=== PATIENT | female | born 1960 | race Caucasian/White ===

== ENCOUNTER → 2016-07-26 | Outpatient (CLI) | payer OTHER ==
--- NOTE | 2016-07-27 09:01 | BD ---
EXAMINATION TYPE: MG DEXA axial skeleton. DATE OF EXAM: 07/26/2016 9:16 AM CLINICAL HISTORY: Height: 64 inches Weight: 261 FRAX RISK QUESTIONS: Alcohol (3 or more units per day): no Family History (Parent hip fracture): no Glucocorticoids (More than 3mos): no (Ex: prednisone, prednisolone, methylprednisolone, dexamethasone, and hydrocortisone). History of Fracture in Adulthood: no Secondary Osteoporosis: 1. Type 1 Diabetes: no 2. Hyperthyroidism: no 3. Menopause before 45: no 4. Malnutrition: no 5. Chronic liver disease: no Rheumatoid Arthritis: no Current Tobacco Use: no RISK FACTORS HISTORY OF: Family History of Osteoporosis: no Drink Alcohol: rarely Active: yes Diet low in dairy products/other sources of calcium: at least one serving a day Postmenopausal woman: yes Take estrogen and/or progesterone medications: not now How long: hormonal contraceptives about 10 years Lost more than 2 inches in height since high school: no Frequent falls: no Poor Health: no Hyperparathyroidism: no Adrenal Insufficiency: no MEDICATIONS: Prednisone or other steroids: no Thyroid Medications: yes Which medication: Levothyroxine How Long: since 2006 Osteoporosis Medications: no Additional Medications: heart meds, cholesteral, beta carmela , blood thinner Additional History: heart stents EXAM MEASUREMENTS: Bone mineral densitometry was performed using the [email or web address] System. Bone mineral density as measured about the Lumbar spine is: ----- L1-L4(G/cm2): 1.349 T Score Values are as follows: ----- L2: 0.9 ----- L3: 2.0 ----- L4: 2.5 ----- L1-L4: 1.4 Bone mineral density has: Increased 1.2% since study of: 05/29/2012 Bone mineral density about the R hip (g/cm2): 1.086 Bone mineral density about the L hip (g/cm2): 1.138 T Score values are as follows: -----R Neck: 0.3 -----L Neck: 0.7 -----R Total: 1.7 -----L Total: 1.9 Bone mineral density has: Decreased -2.8% since study of: 05/29/2012 IMPRESSION: Normal (Values between +1 and -1 indicate normal bone mass). Consider repeating this study in 5 year s or sooner if there is some new clinical indication. Lumbar Spine , Bilateral Necks, & Bilateral Totals NOTE: T-SCORE=SD OF THE YOUNG ADULT MEAN.
--- NOTE | 2016-07-29 13:27 | MM ---
Reason for exam: screening (asymptomatic). Last mammogram was performed 1 year and 1 month ago. History: Patient is postmenopausal. Took hormonal contraceptives for 10 years beginning at age 15. Physical Findings: A clinical breast exam by your physician is recommended on an annual basis and results should be correlated with mammographic findings. MG Screening Mammo w CAD Bilateral CC and MLO view(s) were taken. Prior study comparison: July 07, 2015, bilateral MG screening mammo w CAD. June 11, 2014, bilateral MG screening mammo w CAD. May 30, 2013, bilateral digital screening mammo w/CAD. There are scattered fibroglandular densities. No significant changes when compared with prior studies. ASSESSMENT: Negative, BI-RAD 1 RECOMMENDATION: Routine screening mammogram of both breasts in 1 year.
== END | disposition home or self-care (01) ==
LOC: RADMAMWWP 08:22
PROVIDERS: ATTEND Obstetrics & Gynecology
DX: Z12.31 Encounter for screening mammogram for malignant neoplasm of breast (principal); Z78.0 Asymptomatic menopausal state; Z79.899 Other long term (current) drug therapy
CPT/HCPCS: 77080; G0202

== ENCOUNTER 2016-08-31 11:35 | Inpatient (IN) | payer OTHER ==
[2016-08-31] MEDS: DEXTROSE 5%-0.45% NACL 1,000 ML IV SCH (13:36)
[2016-08-31] MEDS: ACETAMINOPHEN TAB 325 MG TAB PO PRN ×3 (15:21→23:56)
--- NOTE | 2016-08-31 19:27 | HP ---
DATE OF ADMISSION: 08/31/2016 CHIEF COMPLAINT: Fever. HISTORY OF PRESENT ILLNESS: This 56-year-old female was admitted to the hospital because of fever. The patient called me this morning at about 7:00 that she was having a fever during the night. I had seen on Monday with upper respiratory symptoms and did advise her to monitor temperature and status. The patient had malaise. The patient was advised rest. She had been on Zithromax for persistent cough last week. She had initial temperature when she started on Zithromax. No fever for the past week except yesterday. The patient denies any chest pain. Does feel mild shortness of breath. Has some cough, not much sputum production. Actually her condition feels better. Patient in view of this, as an outpatient from the office had a chest x-ray done which reveals a right upper lobe pneumonia. White count is normal; however, the patient do to the symptoms and feeling poorly is admitted to the hospital. The patient does work in the hospital. Past medical history is primarily significant for coronary artery disease with cardiac stenting done in May. The patient also had a subendocardial myocardial. The patient has history of hyperlipidemia and mild obesity. She has history of hypothyroidism, on medical therapy. Otherwise, no history of any major illnesses. She does have history of hyperlipidemia, on medical therapy. The patient recently had about month ago a right inguinal infected sebaceous cyst which has healed. PAST SURGICAL HISTORY: None major. PERSONAL HISTORY: Nonsmoker at present, has been an ex-smoker. Quit smoking back in May. Alcohol none. MEDICATIONS INCLUDE: 1. Aspirin 1 daily. 2. Effient 10 mg daily. 3. Zyloprim 10 mg daily. 4. Levothyroxine 50 mcg daily. 5. Vitamin D 50,000 units q.2 weeks. 6. Xanax 0.5 mg p.r.n. t.i.d. 7. Atorvastatin 40 mg daily. 8. Atenolol 25 mg daily. 9. Potassium 10 mEq daily. 10. Lasix 40 mg daily. SOCIAL HISTORY: Patient is , lives with her spouse. FAMILY MEDICAL HISTORY: Noncontributory for this gentleman. History of coronary artery disease in the family. REVIEW OF SYSTEMS: NEUROLOGIC: Mild headache, no dizziness. PSYCH: No anxiety. CARDIAC: No chest pain, angina, palpitations. RESPIRATORY: Mild shortness of breath, cough. No hemoptysis. No chest pain. GI: No nausea, vomiting, abdominal pain, diarrhea, constipation. The patient had diarrhea 3 days ago. : No symptoms of dysuria, hematuria. EXTREMITIES: No pain. Does have generalized malaise. CONSTITUTIONAL: Fever, chills and malaise. SKIN: No rashes. PHYSICAL EXAMINATION: Pleasant female in no distress. VITAL SIGNS: Blood pressure 110/70. Temperature was up to 103.2, it is down to 100.3 axillary. Pulse 73, respirations are 18, unlabored. HEENT: Normocephalic. NECK: Supple. No JVD. Chest examination is clear to auscultation. CARDIAC: Normal S1, S2 with no gallops or murmurs. ABDOMEN: Soft, no palpable masses. Bowel sounds normal. No organomegaly. No bruits. EXTREMITIES: No edema. No tenderness. NEUROLOGICAL: Awake, alert, oriented x3 with well coordinated movements. LABORATORY ASSESSMENT: Chest x-ray right upper lobe pneumonia. Patient's CBC reveals white count 5.5, platelet count 111,000. Chemistry is normal. ASSESSMENT: 1. Right upper lobe pneumonia. 2. Coronary artery disease. 3. Recent upper respiratory tract infection. PLAN: Patient admitted to the hospital. She had already taken Levaquin 750 mg p.o. prior to coming into the hospital. She had been ordered to have chest x-ray and the start of Levaquin. The patient in view of this will be continued on Levaquin IV tomorrow. The patient meanwhile when her blood cultures are done, no anticoagulation for deep venous thrombosis prophylaxis as the patient has platelet counts 111,000. The patient is ambulating to the bathroom and back. Will hydrate the patient. Oxygen p.r.n. Prognosis discussed with the patient.
[2016-08-31] MEDS: ALPRAZolam 0.5 MG TAB PO PRN (23:56)
[2016-09-01] MEDS: DEXTROSE 5%-0.45% NACL 1,000 ML IV SCH ×2 (02:54→17:16)
[2016-09-01] MEDS: ACETAMINOPHEN TAB 325 MG TAB PO PRN (03:52)
[2016-09-01] MEDS: LEVOTHYROXINE 50 MCG TAB PO SCH (06:18)
[2016-09-01] MEDS: LEVOFLOXACIN 750MG-D5W PMX 750 MG in DEXTROSE/WATER 1 150ML.BAG IVPB SCH (07:57)
[2016-09-01] MEDS: POTASSIUM CHLORIDE ER 10 MEQ TAB.ER.PRT PO SCH (07:57)
[2016-09-01] MEDS: PRASUGREL 10 MG TAB PO SCH (07:57)
[2016-09-01] MEDS: FUROSEMIDE 40 MG TAB PO SCH (07:57)
[2016-09-01] MEDS: ATENOLOL 12.5 MG TAB PO SCH ×2 (08:02→21:09)
--- NOTE | 2016-09-01 08:13 | XR ---
EXAMINATION TYPE: XR chest 2V DATE OF EXAM: 09/01/2016 COMPARISON: Prior chest x-ray 08/31/2016 HISTORY: Pneumonia TECHNIQUE: Frontal and lateral views of the chest are obtained. FINDINGS: Air space disease present in the right upper lobe is somewhat more conspicuous on the fron destini exam. No other interval change. IMPRESSION: Findings compatible with right upper lobe pneumonia, follow-up to resolution.
[2016-09-01] MEDS: IBUPROFEN 400 MG TAB PO PRN ×4 (08:37→21:06)
[2016-09-01 08:50] LABS: Anisocytosis Slight; Basophils % (A) 0 %; CH 27.8; CHCM 32.8; Eosinophils % (A) 0 %; HCT 36.8 % (34.0-46.0); HDW 3.36; HGB 11.9 gm/dL (11.4-16.0); Luc % (Auto) 2; Lymphocytes # (A) 0.7 k/uL (1.0-4.8); Lymphocytes % (A) 15 %; MCH 27.5 pg (25.0-35.0); MCHC 32.3 g/dL (31.0-37.0); MCV 85.2 fL (80.0-100.0); Mean Platelet Volume 7.8; Monocytes # (A) 0.2 k/uL (0-1.0); Monocytes % (A) 4 %; Neutrophils # (A) 3.8 k/uL (1.3-7.7); Neutrophils % (A) 79 %; RBC 4.32 m/uL (3.80-5.40); WBC 4.9 k/uL (3.8-10.6); WBC (Perox) 4.82
[2016-09-01] MEDS ORDERED: CITALOPRAM HYDROBROMIDE 10 MG TAB PO SCH (09:00)
[2016-09-01] MEDS ORDERED: ASPIRIN 81 MG CHEW PO SCH (09:00)
[2016-09-01] MEDS ORDERED: ATORVASTATIN 40 MG TAB PO SCH (09:00)
[2016-09-01] MEDS ORDERED: ATENOLOL 25 MG TAB PO SCH (09:00)
[2016-09-01] MEDS: ASPIRIN 325 MG TAB PO SCH (10:00)
[2016-09-01 10:32] LABS: Manual Review Performed
[2016-09-01 14:45] VITALS: BMI 42.5
[2016-09-01] MEDS ORDERED: IV VANCOMYCIN PER PHARMACY 1 EACH MISC MISCELLANE PRN (18:15)
[2016-09-01 18:52] LABS: Anion Gap 9 mmol/L; Blood Urea Nitrogen 14 mg/dL (7-17); Calcium 7.7 mg/dL (8.4-10.2); Carbon Dioxide 23 mmol/L (22-30); Chloride 100 mmol/L (98-107); Glucose 108 mg/dL (74-99); Non-African American GFR(MDRD) >60 (>60 ml/min/1.73 sqM); Potassium 3.5 mmol/L (3.5-5.1); Sodium 132 mmol/L (137-145)
[2016-09-01] MEDS ORDERED: VANCOMYCIN 2,000 MG in SODIUM CHLORIDE 0.9% 500 ML IVPB ONE (19:00)
[2016-09-01] MEDS: ATORVASTATIN 40 MG TAB PO SCH (21:09)
[2016-09-01] MEDS: ALPRAZolam 0.5 MG TAB PO PRN (21:09)
--- NOTE | 2016-09-01 23:29 | PN ---
CHIEF COMPLAINT: Re-evaluation. HISTORY OF PRESENT ILLNESS: This is a 56-year-old female who was admitted to the hospital yesterday because of chest pain. The patient is actually continuing to have a fever throughout the night and again ( ). The patient was seen this morning. She is re-evaluated again this evening. During the day she had no temperature; however, right now the patient's temperature is up to 103.7. The patient denies any chest pain and does have mild dyspnea when she gets up to the bathroom. She did have a shower. She has some cough. No hemoptysis. No sputum production. REVIEW OF SYSTEMS: NEURO: Mild headache. No dizziness. PSYCH: No anxiety or depression. CARDIAC: No chest pain, angina, palpitations. RESPIRATORY: Cough. No hemoptysis. GI: No nausea, vomiting. Appetite fair. GI: No abdominal pain, diarrhea. : No symptoms of dysuria, hematuria. EXTREMITIES: No pain. CONSTITUTIONAL: No fever or chills. PHYSICAL EXAMINATION: Pleasant female in no distress. VITAL SIGNS: Temperature at the time of evaluation this morning was 102.9 with a pulse of 86, respiration 16, blood pressure 134/74. During the day the patient's temperature was down. This evening temperature was 103.7. The patient has been given Motrin. HEENT: Normocephalic. NECK: Supple. No JVD. CHEST: Clear to auscultation with clear lung hill. CARDIAC: Distant heart sounds. S1, S2 with no gallops or murmurs. ABDOMEN: Soft. Bowel sounds present. EXTREMITIES: No edema. No tenderness. NEUROLOGICAL: Awake, alert, oriented with well-coordinated movements. Laboratory assessment revealed a CBC with a white count that is 4.9. Platelet count is down to 85,000. Patient's chest x-ray reveals mild progression of the right upper lobe pneumonia. ASSESSMENT: 1. Right upper lobe pneumonia. 2. Continued fever. 3. History of coronary artery disease. 4. Thrombocytopenia. PLAN: Continue present medical regimen. Will start the patient on vancomycin and ask ID to see the patient. Patient's prognosis remains guarded. Condition discussed with the patient. Patient will be continued on antipyretics.
[2016-09-02] MEDS: IBUPROFEN 400 MG TAB PO PRN ×5 (00:17→22:34)
[2016-09-02] MEDS: ACETAMINOPHEN TAB 325 MG TAB PO PRN ×2 (01:24→18:17)
[2016-09-02] MEDS ORDERED: SODIUM CHLORIDE 0.9% 500 ML IV ONE (01:51)
[2016-09-02 02:12] LABS: Anisocytosis Slight; CH 27.7; CHCM 33.3; HDW 3.38; HGB 10.4 gm/dL (11.4-16.0); MCH 27.3 pg (25.0-35.0); MCHC 32.6 g/dL (31.0-37.0); MCV 83.8 fL (80.0-100.0); Mean Platelet Volume 7.5; RBC 3.82 m/uL (3.80-5.40); RDW 16.1 % (11.5-15.5)
[2016-09-02 02:24] LABS: Anion Gap 7 mmol/L; Blood Urea Nitrogen 12 mg/dL (7-17); Calcium 7.7 mg/dL (8.4-10.2); Carbon Dioxide 22 mmol/L (22-30); Chloride 102 mmol/L (98-107); Glucose 119 mg/dL (74-99); Non-African American GFR(MDRD) >60 (>60 ml/min/1.73 sqM); Potassium 3.6 mmol/L (3.5-5.1); Sodium 131 mmol/L (137-145)
[2016-09-02] MEDS ORDERED: SODIUM CHLORIDE 0.9% 1,000 ML IV SCH (02:30)
[2016-09-02] MEDS: PIPERACILLIN-TAZOBACTAM 3.375 GM in DEXTROSE/WATER 1 50ML.BAG IVPB SCH ×4 (02:30→21:52)
[2016-09-02] MEDS: LEVOTHYROXINE 50 MCG TAB PO SCH (06:25)
[2016-09-02] MEDS ORDERED: VANCOMYCIN 1,750 MG in SODIUM CHLORIDE 0.9% 250 ML IVPB SCH (08:00)
[2016-09-02] MEDS: ASPIRIN 325 MG TAB PO SCH (08:49)
[2016-09-02] MEDS: FUROSEMIDE 40 MG TAB PO SCH (08:50)
[2016-09-02] MEDS: POTASSIUM CHLORIDE ER 10 MEQ TAB.ER.PRT PO SCH (08:50)
[2016-09-02] MEDS: PRASUGREL 10 MG TAB PO SCH (08:50)
[2016-09-02] MEDS: ATENOLOL 12.5 MG TAB PO SCH ×2 (09:47→20:29)
[2016-09-02] MEDS: LEVOFLOXACIN 750MG-D5W PMX 750 MG in DEXTROSE/WATER 1 150ML.BAG IVPB SCH (09:47)
[2016-09-02] MEDS: PANTOPRAZOLE 40 MG TABLET PO SCH ×2 (09:49→16:30)
--- NOTE | 2016-09-02 10:23 | CDI ---
In responding to this query, please exercise your independent professional judgment. The [facility] Coding Staff and Clinical Documentation Specialists appreciate your assistance in clarifying documentation, maintaining compliance with coding guidelines, accurately documenting patients condition and capturing severity of illness. The fact that a question is asked does not imply that any particular answer is desired or expected. Communication forms are a method of clarifying documentation and are not made part of the Legal Health Record. Thank you in advance for your clarification. Last Revision, January 2015 James Faye [address] [place] [address] Documentation Clarification Form Date: 09/02/2016 10:14:00 AM From: Pili Romero RN, CCDS Admit Date: 08/31/2016 12:09:00 PM Patient Name: Jessica Flor Visit Number: [id number] Dr. Alexandr Flores Pneumonia was documented in your H&P and Progress notes and requires further specificity. History/Risk Factors: Recent URI with fever and malaise on Zithromax for persistent cough 1 week [employer]CTOR Clinical Indicators: WBC: 4.9/5 Left shift: .7 09/01 X-ray: Right upper lobe pneumonia 09/01 Attending Lung/Breathing assessment: "CTA with clear lung hill." Treatment: Antibiotics: Vanco 1750 mg IVPB Q 16 hrs, Zosyn 3.375 gm IVPB Q 8 hrs. Levaquin 750 MG IVPB Q 24 hrs O2: Room air Breathing Tx: none ordered In order to capture the severity of condition, please clarify if the condition signifies and you are treating for: Aspiration Pneumonia, identify if: Due to solids or liquids Bacterial Pneumonia, specify causal organism (if known) Gram Negative Pneumonia Due to Strep Due to Staph Due to E. Coli Other bacteria (specify) Viral Pneumonia, specify casual organism (if known) Unable to determine Link any associated conditions to the pneumonia: Influenza with secondary gram negative pneumonia Sepsis due to pneumonia Acute respiratory failure due to pneumonia Other, please specify Please document in your progress notes and discharge summary in order to capture severity of illness and risk of mortality. Include clinical findings that support your diagnosis. FYI: Press F11 to launch patient chart. Place X here if this finding has no clinical significance, is not applicable or if you are not able to provide any additional documentation. MTDD
[2016-09-02] MEDS: SODIUM CHLORIDE 0.9% 1,000 ML IV SCH ×2 (14:08→20:30)
--- NOTE | 2016-09-02 17:18 | CONS ---
DATE OF CONSULTATION: 09/02/2016 REASON FOR CONSULTATION: Fever and pneumonia. HISTORY OF PRESENT ILLNESS: The patient is a 56-year-old female who started getting sick around August 22. Patient had mostly URI symptoms at that time and was seen by her PCP and treated with Zithromax. A week later, on MondayAugust 29, she followed up with the physician; the patient said she had improved somewhat but not completely. At that time she was found to have more of a viral syndrome and was treated symptomatically. Patient presented back on August 31 with similar symptoms, and the patient was sent to the ER, where the patient was sent to the hospital. The patient had a chest x-ray showing evidence of pneumonia on the right side. Subsequently the patient has been admitted to the hospital and was treated with Levaquin and vancomycin therapy. The patient seemed to have persistent fever, and a fever of around 104 degrees Fahrenheit around 1:30 in the morning, at which time I was called in by the patient's nurse. We did order a lactic acid. Repeat blood culture and sputum culture were ordered in addition to ( ) Zosyn has been added. At the time of my evaluation this afternoon, the patient has been complaining of feeling weak and tired with a fever. She did have a cough, bringing up some sputum. The patient denied significant pleuritic chest pain. She did have some nausea and vomiting initially, but that seemed to resolve. Her diarrhea has resolved as well. No significant urinary symptoms. REVIEW OF SYSTEMS: CONSTITUTIONAL: Positive for weakness and a fever. EYES: No complaint. ENT: Symptoms as mentioned above. RESPIRATORY: As mentioned in HPI. CARDIOVASCULAR: No complaint. GENITOURINARY: No complaint. GASTROINTESTINAL: As per HPI. MUSCULOSKELETAL: No complaint. INTEGUMENTARY: No complaint. PSYCHOLOGIC: No complaint. ENDOCRINE: No complaint. NEUROLOGIC: No complaint. Possible medical history is significant for: 1. Coronary artery disease. 2. Hyperlipidemia. 3. Obesity. 4. Hypothyroidism. PAST SURGICAL HISTORY: PTCA and stent placement. SOCIAL HISTORY: Positive for smoking in the past; quit back in May of this year. Denies drinking. She is and lives with her and works as a nurse in [employer]. FAMILY HISTORY: Positive for coronary artery disease. ALLERGIES: 1. PREDNISONE. 2. LASIX. 3. CODEINE. 4. AVOCADO. Medications currently include: 1. Tylenol. 2. Xanax. 3. Aspirin. 4. Tenormin. 5. Lipitor. 6. Lasix. 7. Motrin. 8. Levaquin. 9. Synthroid. 10. Protonix. 11. Piperacillin tazobactam. 12. Vancomycin. On examination, blood pressure is 93/62 with a pulse of 78, temperature 99.8. T-max is 104. She is 96% on room air. General description is a middle-aged female lying in bed in no distress. No tachypnea or accessory muscles of respiration use. HEENT examination shows pallor. No scleral icterus. Oral mucous membranes dry and coated. NECK: Trachea central. No thyromegaly. LUNGS: Unlabored breathing with ( ) localized to the right side. HEART: S1, S2. Regular rate and rhythm. ABDOMEN: Soft. No tenderness. EXTREMITIES: No edema of the feet. SKIN EXAMINATION: No rash or mass palpable. NEUROLOGICAL: Patient awake, alert, oriented ( ). Mood and affect normal. LABS: Hemoglobin is 10.4, white count 5 with a BUN of 12, creatinine 0.90. Blood culture ( ) currently pending. Sputum culture requested; none collected yet. Urine for legionella antigen is pending. DIAGNOSTIC IMPRESSION AND PLAN: Patient with a fever in a patient who has predominantly respiratory symptoms preceded by upper respiratory infection symptoms prior to that. Does have some GI symptoms. Question of pneumonia, community-acquired. Legionella will be done. Etiology needs to be ruled out in view of the persistent fever and the GI symptoms. Patient does not give any symptoms that are suspicious for pneumonia of respiration etiology, in a patient with no other clinical focus of infection. PLAN: 1. Sputum culture has been ordered and urine for legionella antigen. 2. Zosyn has been added last night. Will continue in addition to Levaquin and vancomycin. 3. Obtain influenza swab. 4. We will follow up on the clinical condition and cultures to further adjust medication if needed. Thank you for this consultation. Will follow this patient along with you.
[2016-09-02] MEDS: ATORVASTATIN 40 MG TAB PO SCH (20:29)
--- NOTE | 2016-09-02 20:33 | PN ---
DATE OF SERVICE: 09/02/2016 CHIEF COMPLAINT: Re-evaluation. HISTORY OF PRESENT ILLNESS: This 56-year-old female was admitted to the hospital with a fever, chills and a diagnosis of right upper lobe pneumonia. Probable klebsiella; however, the patient had continuous fever during the day yesterday, and during the night it reached about 104. I did come down and see the patient about 2:30 in the night, as the patient's nurses were concerned about the patient. The patient's vital signs remained stable. The patient did have a high fever. 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 The patient is covered with Levaquin and vancomycin. ID consultation is pending. The patient was seen this morning; feeling some better. She looks better. This morning she does not have a fever. REVIEW OF SYSTEMS: NEURO: Denies any headaches, dizziness. PSYCH: No anxiety. CARDIAC: Denies chest pain, angina, palpitation. RESPIRATORY: Denies shortness of breath, cough, hemoptysis. GI: No nausea, vomiting, abdominal pain, diarrhea. : No symptoms of dysuria, hematuria. EXTREMITIES: Denies pain, edema. CONSTITUTIONAL: Fever and chills. At 5:45 patient had a temperature of 101.6. It is down to 99.8 at 7 a.m. PHYSICAL EXAMINATION: Pleasant female in no distress. Vital signs reveal temperature 99.8, pulse 78, respirations 18, blood pressure 93/62, pulse ox 96% on room air. HEENT: Normocephalic. NECK: No JVD. Chest is clear to auscultation. A few wheezes, right axillary area. CARDIAC: Normal S1, S2 with no gallops, murmurs. ABDOMEN: Soft. Bowel sounds present. Extremities reveal trace edema at the ankles. NEUROLOGICALLY: Awake, alert, oriented with well-coordinated movements. LABORATORY ASSESSMENT: CBC which showed a white count of 5000, hemoglobin 10.4, platelet count down to 73,000. Sodium was 131. Potassium 3.6. BUN and creatinine are normal. Calcium 7.7. ASSESSMENT: 1. Right upper lobe pneumonia. 2. Thrombocytopenia. 3. Mild anemia. 4. Coronary artery disease, stable. 5. Pyrexia. PLAN: Continue present medical regimen. Patient's condition discussed with the patient. Prognosis guarded. Patient received Motrin. Will add Protonix for GI prophylaxis. Patient is to be seen by ID. Patient's condition discussed with the patient. Prognosis guarded.
[2016-09-03] MEDS: IBUPROFEN 400 MG TAB PO PRN ×4 (03:28→15:53)
[2016-09-03] MEDS: VANCOMYCIN 1,750 MG in SODIUM CHLORIDE 0.9% 250 ML IVPB SCH ×2 (03:32→20:16)
[2016-09-03] MEDS: ALPRAZolam 0.5 MG TAB PO PRN (03:42)
[2016-09-03] MEDS: LEVOTHYROXINE 50 MCG TAB PO SCH (06:38)
[2016-09-03] MEDS: LEVOFLOXACIN 750MG-D5W PMX 750 MG in DEXTROSE/WATER 1 150ML.BAG IVPB SCH (07:38)
[2016-09-03 07:47] LABS: CH 27.8; CHCM 34.4; HCT 32.7 % (34.0-46.0); HDW 3.64; HGB 11.6 gm/dL (11.4-16.0); MCH 28.9 pg (25.0-35.0); MCHC 35.6 g/dL (31.0-37.0); MCV 81.1 fL (80.0-100.0); Mean Platelet Volume 8.7; Poikilocytosis Slight; RBC 4.03 m/uL (3.80-5.40); RDW 15.6 % (11.5-15.5); WBC 5.4 k/uL (3.8-10.6)
[2016-09-03] MEDS: POTASSIUM CHLORIDE ER 10 MEQ TAB.ER.PRT PO SCH (08:04)
[2016-09-03] MEDS: PRASUGREL 10 MG TAB PO SCH (08:04)
[2016-09-03] MEDS: FUROSEMIDE 40 MG TAB PO SCH (08:04)
[2016-09-03] MEDS: PANTOPRAZOLE 40 MG TABLET PO SCH ×2 (08:05→17:05)
[2016-09-03] MEDS: ASPIRIN 325 MG TAB PO SCH (08:05)
[2016-09-03] MEDS: ATENOLOL 12.5 MG TAB PO SCH ×2 (08:05→20:18)
[2016-09-03 08:09] LABS: Anion Gap 9 mmol/L; Blood Urea Nitrogen 12 mg/dL (7-17); Calcium 8.2 mg/dL (8.4-10.2); Carbon Dioxide 25 mmol/L (22-30); Chloride 102 mmol/L (98-107); Glucose 95 mg/dL (74-99); Non-African American GFR(MDRD) >60 (>60 ml/min/1.73 sqM); Potassium 3.5 mmol/L (3.5-5.1); Sodium 136 mmol/L (137-145)
[2016-09-03] MEDS: PIPERACILLIN-TAZOBACTAM 3.375 GM in DEXTROSE/WATER 1 50ML.BAG IVPB SCH ×2 (10:30→15:53)
[2016-09-03] MEDS: ATORVASTATIN 40 MG TAB PO SCH (20:18)
[2016-09-04] MEDS: PIPERACILLIN-TAZOBACTAM 3.375 GM in DEXTROSE/WATER 1 50ML.BAG IVPB SCH ×3 (00:34→16:58)
[2016-09-04] MEDS: LEVOTHYROXINE 50 MCG TAB PO SCH (06:17)
[2016-09-04] MEDS: PRASUGREL 10 MG TAB PO SCH (08:52)
[2016-09-04] MEDS: PANTOPRAZOLE 40 MG TABLET PO SCH ×2 (08:52→18:12)
[2016-09-04] MEDS: ASPIRIN 325 MG TAB PO SCH (08:52)
[2016-09-04] MEDS: FUROSEMIDE 40 MG TAB PO SCH (08:52)
[2016-09-04] MEDS: ATENOLOL 12.5 MG TAB PO SCH ×2 (08:52→22:10)
[2016-09-04] MEDS: LEVOFLOXACIN 750MG-D5W PMX 750 MG in DEXTROSE/WATER 1 150ML.BAG IVPB SCH (08:52)
[2016-09-04] MEDS: POTASSIUM CHLORIDE ER 10 MEQ TAB.ER.PRT PO SCH (08:53)
[2016-09-04] MEDS ORDERED: VANCOMYCIN TROUGH DUE 1 EACH MISC MISCELLANE ONE (11:00)
[2016-09-04 11:22] LABS: CH 27.9; CHCM 34.1; HCT 31.5 % (34.0-46.0); HDW 3.56; HGB 10.4 gm/dL (11.4-16.0); MCH 27.3 pg (25.0-35.0); MCHC 33.2 g/dL (31.0-37.0); MCV 82.3 fL (80.0-100.0); Mean Platelet Volume 8.5; Poikilocytosis Slight; RBC 3.82 m/uL (3.80-5.40); RDW 15.6 % (11.5-15.5); WBC 3.9 k/uL (3.8-10.6)
--- NOTE | 2016-09-04 11:23 | PN ---
CHIEF COMPLAINT: Re-evaluation. HISTORY OF PRESENT ILLNESS: This is a 56-year-old female who was admitted to the hospital because of a fever. The patient was noted to have evidence of right upper lobe pneumonia. She had continuous fever for more than 48 hours. This has improved. The patient is feeling better today. REVIEW OF SYSTEMS: NEURO: Denies any headaches, dizziness. PSYCH: No anxiety. CARDIAC: No chest pain, angina, palpitation. RESPIRATORY: No shortness breath. Does have mild dyspnea. Has some cough minimal sputum production. No hemoptysis. GI: No nausea, vomiting, abdominal pain, or diarrhea. : No symptoms of dysuria, hematuria. EXTREMITIES: No pain. CONSTITUTIONAL: No fever or chills for the past 12 hours at least. PHYSICAL EXAMINATION: Pleasant female in no distress. Vital signs reveal temperature 98.1, pulse 64, respirations 20, blood pressure 91/48, pulse ox of 92% on room air. HEENT: Normocephalic. NECK: No JVD. Chest is clear to auscultation except for occasional rhonchi in the right axillary area. CARDIAC: Normal S1, S2 with no gallops, murmurs. ABDOMEN: Soft. Bowel sounds present. EXTREMITIES: No edema. No tenderness. NEUROLOGICAL: Awake, alert, oriented with well coordinated movements. LABORATORY ASSESSMENT: White count 5.4, platelet counts 79, sodium 136, potassium 3.5. Normal renal function. ASSESSMENT: 1. Right upper lobe pneumonia. 2. Stable coronary artery disease. 3. Thrombocytopenia. 4. Hyponatremia. PLAN: Continue present medical regimen. The patient's condition discussed with the patient. Prognosis guarded. The patient's hyponatremia may be related to the pneumonia and ( ). The patient's condition is stable and improving. Continue present regimen. She is on triple antibiotics. Prognosis remains guarded. ID is following.
[2016-09-04 11:41] LABS: Anion Gap 10 mmol/L; Blood Urea Nitrogen 11 mg/dL (7-17); Calcium 8.5 mg/dL (8.4-10.2); Carbon Dioxide 26 mmol/L (22-30); Chloride 104 mmol/L (98-107); Glucose 95 mg/dL (74-99); Non-African American GFR(MDRD) >60 (>60 ml/min/1.73 sqM); Potassium 3.8 mmol/L (3.5-5.1); Sodium 140 mmol/L (137-145)
[2016-09-04] MEDS: VANCOMYCIN 1,750 MG in SODIUM CHLORIDE 0.9% 250 ML IVPB SCH (13:49)
[2016-09-04] MEDS ORDERED: VANCOMYCIN 1,750 MG in SODIUM CHLORIDE 0.9% 250 ML IVPB SCH (21:00)
[2016-09-04] MEDS: IBUPROFEN 400 MG TAB PO PRN (22:01)
[2016-09-04] MEDS: ATORVASTATIN 40 MG TAB PO SCH (22:10)
[2016-09-05] MEDS: PIPERACILLIN-TAZOBACTAM 3.375 GM in DEXTROSE/WATER 1 50ML.BAG IVPB SCH ×2 (00:02→08:54)
[2016-09-05] MEDS: LEVOTHYROXINE 50 MCG TAB PO SCH (06:36)
--- NOTE | 2016-09-05 07:35 | PN ---
CHIEF COMPLAINT: Re-evaluation. HISTORY OF PRESENT ILLNESS: A 56-year-old female was admitted to the hospital with right upper lobe pneumonia. The patient had persistent fever for about 48 hours. The patient is now defervesced and has not had a fever for more than 36 hours. She is feeling much better. REVIEW OF SYSTEMS: NEURO: Denies any headaches, dizziness. PSYCH: No anxiety. CARDIAC: No chest pain, angina, palpitations. RESPIRATORY: Mild cough and mild dyspnea on exertion, but better. GI: No nausea, vomiting, abdominal pain, some loose stools, had mild fresh blood with excessive wiping. Extremities reveal no edema. No tenderness. NEUROLOGICAL: Awake, alert, oriented with well-coordinated movements. Laboratory assessment: White count 3900, hemoglobin 10.4, platelet count 201,000. Electrolytes are normal. BUN and creatinine are normal. Blood cultures negative so far. Gram stain only a few WBCs a few Gram-positive cocci. ASSESSMENT: 1. Right upper lobe pneumonia. 2. Stable coronary artery disease. 3. Anemia. 4. Thrombocytopenia. PLAN: The patient is stable. Continue present medical regimen. The patient is on vancomycin, Zosyn and Levaquin. Patient's condition discussed with the patient. Prognosis guarded. Potential discharge in the next 48 hours. Await final decision by Infectious disease on home antibiotic therapy. Patient's condition discussed with the patient. Prognosis guarded.
--- NOTE | 2016-09-05 07:56 | PN ---
DATE OF SERVICE: 09/04/2016 Reason for follow-up is pneumonia. INTERVAL HISTORY: The patient is afebrile. Overall feeling better, breathing comfortably. Denies significant chest pain. Has been coughing up a minimal amount of creamy sputum. No hemoptysis. No abdominal pain. Did have some diarrhea though. On examination, blood pressure is 104/56 with a pulse of 75, temperature 98.6. She is 95% on room air. General description is a middle-age female up in bed in no distress. RESPIRATORY SYSTEM: Unlabored breathing. Clear to auscultation. HEART: S1, S2. Regular rate and rhythm. ABDOMEN: Soft. No tenderness. Extremities no edema of feet. LABS: Hemoglobin 10.4, white count 3.9 with a BUN of 11, creatinine 0.80, blood cultures have been negative. Sputum collected currently pending. Urine for legionella was requested unfortunately not sent. DIAGNOSTIC IMPRESSION AND PLAN: Patient with right upper lobe pneumonia, likely community-acquired. PLAN: At this time, we will keep the patient on Zosyn while waiting for the sputum cultures to finalize. Clinical suspicion low for MRSA pneumonia, hence Vancomycin will be discontinued. Continue supportive care.
[2016-09-05] MEDS: ATENOLOL 12.5 MG TAB PO SCH (08:08)
[2016-09-05] MEDS: PRASUGREL 10 MG TAB PO SCH (08:08)
[2016-09-05] MEDS: FUROSEMIDE 40 MG TAB PO SCH (08:09)
[2016-09-05] MEDS: ASPIRIN 325 MG TAB PO SCH (08:09)
[2016-09-05] MEDS: POTASSIUM CHLORIDE ER 10 MEQ TAB.ER.PRT PO SCH (08:09)
[2016-09-05] MEDS: PANTOPRAZOLE 40 MG TABLET PO SCH (08:09)
[2016-09-05 08:15] LABS: Calcium 8.2 mg/dL (8.4-10.2); Potassium 3.5 mmol/L (3.5-5.1)
[2016-09-05] MEDS ORDERED: LEVOFLOXACIN 750 MG TAB PO SCH (09:00)
[2016-09-05 15:32] VITALS: BP 109/54; PULSE 60; RESP 18; TEMP 97.2
--- NOTE | 2016-09-05 16:35 | PN ---
DATE OF SERVICE: 09/05/2016 REASON FOR FOLLOWUP: Pneumonia, community-acquired. INTERVAL HISTORY: The patient is afebrile. She is breathing comfortably. Her cough has decreased in intensity; bringing up some sputum. No significant chest pain. No abdominal pain. She did have some diarrhea. On examination, blood pressure is 107/52 with a pulse of 54, temperature 97.9. She is 94% on room air. General description is a middle-aged female up in the chair in no distress. RESPIRATORY SYSTEM: Unlabored breathing. Clear to auscultation anteriorly. HEART: S1, S2. Regular rate and rhythm. ABDOMEN: Soft. No tenderness. LABS: Stool for C difficile in negative. BUN is 13, creatinine 1.26. DIAGNOSTIC IMPRESSION AND PLAN: Patient with pneumonia, likely community-acquired. Sputum negative for any resistant pathogens ( ) colonizer. Patient did show overall improvement with Zosyn and Levaquin. Plan to finish therapy with p.o. Ceftin 500 mg twice a day for another 10 days. Prescription was sent to the pharmacy. Continue supportive care.
--- NOTE | 2016-09-06 06:56 | PN ---
CHIEF COMPLAINT: Re-evaluation. HISTORY OF PRESENT ILLNESS: This 56-year-old was admitted to the hospital with pneumonia. The patient is actually feeling better. She has not had a fever for more than 48 hours. REVIEW OF SYSTEMS: NEURO: Denies any headaches, dizziness. PSYCH: No anxiety, depression. CARDIAC: Denies chest pain, angina, palpitation. RESPIRATORY: Denies shortness of breath. Has some cough. No hemoptysis. No chest pain. GI: No nausea, vomiting, abdominal pain, diarrhea. Patient has some loose stool. : No symptoms of dysuria, hematuria, urgency, frequency. EXTREMITIES: No pain. CONSTITUTIONAL: No fever or chills. PHYSICAL EXAMINATION: Pleasant female in no distress. Vital signs revealed temperature 97.9, pulse 54, respirations 20, blood pressure 107/52, pulse ox 94% on room air. HEENT: Normocephalic. NECK: No JVD. Chest is clear to auscultation with occasional wheezes in the right axillar area. CARDIAC: Normal S1, S2 with no gallops. Regular rhythm. No murmurs. ABDOMEN: Soft, no palpable masses. Bowel sounds normal. No organomegaly. No abdominal bruits. EXTREMITIES: No edema. No tenderness. NEUROLOGIC: Awake, alert, oriented with well-coordinated movements. LABORATORY ASSESSMENT: Microbiology which showed the sputum showed some Rhiannon albicans. ASSESSMENT: 1. Resolving pneumonia. 2. Thrombocytopenia, improving. 3. Coronary artery disease, stable. PLAN: The patient is stable to be discharged home. Patient's condition discussed with the patient. The patient was cleared by ID. They recommended the patient be discharged on Ceftin. Patient's condition is stable at the time of discharge. Prognosis guarded. She will follow up in the outpatient in about a week.
[2016-09-07] MEDS ORDERED: LEVOFLOXACIN 750 MG TAB PO SCH (09:00)
== END 2016-09-05 15:42 | disposition home or self-care (01) | DRG 194 ==
LOC: 4MS4W 12:09
PROVIDERS: ADMIT Internal Medicine; ATTEND Internal Medicine
DX: J18.9 Pneumonia, unspecified organism (principal); E87.1 Hypo-osmolality and hyponatremia; D69.6 Thrombocytopenia, unspecified; Z68.41 Body mass index [BMI] 40.0-44.9, adult; E78.5 Hyperlipidemia, unspecified; E66.9 Obesity, unspecified; D64.9 Anemia, unspecified; E03.9 Hypothyroidism, unspecified; I25.10 Atherosclerotic heart disease of native coronary artery without angina pectoris; Z95.5 Presence of coronary angioplasty implant and graft; Z87.891 Personal history of nicotine dependence; Z79.02 Long term (current) use of antithrombotics/antiplatelets; Z79.82 Long term (current) use of aspirin; Z79.899 Other long term (current) drug therapy
CPT/HCPCS: 36415; 71020; 80048; 80053; 80202; 83605; 85025; 85027; 87040; 87070; 87205; 87324; 87449; 87502

== ENCOUNTER → 2016-08-31 | Outpatient (CLI) | payer OTHER ==
--- NOTE | 2016-08-31 11:01 | XR ---
"EXAMINATION TYPE: XR chest 2V DATE OF EXAM: 08/31/2016 COMPARISON: NONE TECHNIQUE: PA and lateral views submitted. HISTORY: Cough FINDINGS: New subsegmental area of infiltrate right upper lobe. Left lung clear. No pleural effusion or pneumot horax. Surgical clips in the abdomen. IMPRESSION: 1. Right upper lobe pneumonia. A [facility]ado message has been communicated to Alexandr Flores MD via the [employer] | Critical Result sy stem on 08/31/2016 10:58 AM, Message ID [id number]."
[2016-08-31 11:30] LABS: ALT 27 U/L (9-52); AST 22 U/L (14-36); Alkaline Phosphatase 92 U/L (38-126); Anion Gap 13 mmol/L; Blood Urea Nitrogen 14 mg/dL (7-17); Calcium 8.3 mg/dL (8.4-10.2); Carbon Dioxide 25 mmol/L (22-30); Chloride 102 mmol/L (98-107); Glucose 108 mg/dL (74-99); Non-African American GFR(MDRD) 59 (>60 ml/min/1.73 sqM); Potassium 3.7 mmol/L (3.5-5.1); Sodium 140 mmol/L (137-145); Total Bilirubin 0.6 mg/dL (0.2-1.3); Total Protein 6.9 g/dL (6.3-8.2)
[2016-08-31 11:31] LABS: CH 28.1; CHCM 34.1; HCT 35.7 % (34.0-46.0); HDW 3.51; HGB 12.2 gm/dL (11.4-16.0); MCH 28.3 pg (25.0-35.0); MCHC 34.2 g/dL (31.0-37.0); MCV 82.8 fL (80.0-100.0); Mean Platelet Volume 7.6; Poikilocytosis Slight; RBC 4.32 m/uL (3.80-5.40); RDW 15.7 % (11.5-15.5); WBC 5.5 k/uL (3.8-10.6)
== END | disposition home or self-care (01) ==
LOC: LABWHC1 10:38
PROVIDERS: ATTEND Internal Medicine
DX: J18.9 Pneumonia, unspecified organism (principal)
CPT/HCPCS: 36415; 71020; 80053; 85027

== ENCOUNTER → 2016-09-26 | Outpatient (CLI) | payer OTHER ==
--- NOTE | 2016-09-27 12:00 | XR ---
EXAMINATION TYPE: XR chest 2V DATE OF EXAM: 09/26/2016 COMPARISON: Chest x-ray 09/01/2016 HISTORY: Cough, pneumonia TECHNIQUE: Frontal and lateral views of the chest are obtained. FINDINGS: The increased opacity seen on previous exam in the right upper lobe has become more bandli ke and decreased in size as compared to previous exam. No other significant interval change. IMPRESSION: Interval improvement in patient's airspace disease. Additional follow-up suggested.
== END ==
LOC: RADXRMAIN 16:36
PROVIDERS: ATTEND Internal Medicine
DX: R05 Cough (principal)
CPT/HCPCS: 71020

== ENCOUNTER → 2016-10-24 | Outpatient (CLI) | payer OTHER ==
--- NOTE | 2016-10-24 11:25 | XR ---
EXAMINATION TYPE: XR chest 2V DATE OF EXAM: 10/24/2016 COMPARISON: Prior chest x-ray 09/26/2016 HISTORY: Pneumonia TECHNIQUE: Frontal and lateral views of the chest are obtained. FINDINGS: Bandlike area of increased attenuation in the right upper lobe is somewhat less conspicuou s as compared to prior exam. No other significant interval change. IMPRESSION: Improved aeration.
== END ==
LOC: RADXRMAIN 09:01
PROVIDERS: ATTEND Internal Medicine
DX: J18.1 Lobar pneumonia, unspecified organism (principal)
CPT/HCPCS: 71020

== ENCOUNTER 2017-01-25 08:42 | Day surgery (SDC) | payer OTHER ==
[2017-01-25 09:41] LABS: Mean Platelet Volume 6.7
[2017-01-25 09:44] LABS: Prothrombin Time 10.4 sec (9.0-12.0)
[2017-01-25 10:23] VITALS: TEMP 98
[2017-01-25 12:25] VITALS: RESP 16
[2017-01-25 12:26] VITALS: BP 102/56; PULSE 68
--- NOTE | 2017-01-25 13:39 | US ---
EXAMINATION TYPE: US paracentesis abd w/image DATE OF EXAM: 01/25/2017 COMPARISON: NONE HISTORY: Ascites. PROCEDURE: Maximal barrier technique was utilized. The skin overlying a suitable pocket of fluid was localized with ultrasound and the overlying skin was prepped and draped. Ultrasound was utilized with sterile technique. Lidocaine was used for local anesthesia and a skin nikko made with a scalpel. Catheter was advanced under direct ultrasound guidance into a suitable pocket of fluid and approximately 7 liters of yellow fluid were removed. Catheter was withdrawn and hemostasis achieved. There is no immediate complication; the patient is discharged in stable condition. IMPRESSION: STATUS POST ULTRASOUND GUIDED PARACENTESIS FOR PALLIATION OF ASCITES. THIS PROCEDURE WA S PERFORMED BY THE UNDERSIGNED.
[2017-01-25 15:40] LABS: RBC, Body Fluid 455 /uL
[2017-01-25 15:48] LABS: Body Fluid Comment Moderate Mesothelial
[2017-01-25 19:31] LABS: LDH, Body Fluid Source Paracentesis Fluid; T. Protein, Body Fluid Source Paracentesis Fluid; Total Protein, Body Fluid 5000 mg/dL
== END 2017-01-25 12:28 | disposition home or self-care (01) ==
LOC: RADPROMAIN 08:42
PROVIDERS: ATTEND Internal Medicine
DX: C48.2 Malignant neoplasm of peritoneum, unspecified (principal); R18.8 Other ascites
CPT/HCPCS: 36415; 49083; 82150; 83615; 84157; 85049; 85610; 86304; 87070; 87102; 87205; 88108; 88305; 88341; 88342; 89050

== ENCOUNTER 2017-02-06 12:33 | Day surgery (SDC) | payer OTHER ==
[2017-02-06 13:10] VITALS: RESP 16; TEMP 97.6
[2017-02-06 13:39] LABS: Mean Platelet Volume 7.5
[2017-02-06 13:54] LABS: Partial Thromboplastin Time 25.3 sec (22.0-30.0)
--- NOTE | 2017-02-06 15:37 | US ---
EXAMINATION TYPE: US paracentesis abd w/image DATE OF EXAM: 02/06/2017 COMPARISON: NONE HISTORY: Ascites. PROCEDURE: Maximal barrier technique was utilized. The skin overlying a suitable pocket of fluid was localized with ultrasound and the overlying skin was prepped and draped. Ultrasound was utilized with sterile technique. Lidocaine was used for local anesthesia and a skin nikko made with a scalpel. Catheter was advanced under direct ultrasound guidance into a suitable pocket of fluid and approximately 6 liters of serous fluid were removed. Catheter was withdrawn and hemostasis achieved. There is no immediate complication; the patient is discharged in stable condition. IMPRESSION: STATUS POST ULTRASOUND GUIDED PARACENTESIS FOR PALLIATION OF ASCITES. THIS PROCEDURE WA S PERFORMED BY THE UNDERSIGNED.
[2017-02-06 15:56] VITALS: BP 121/70; PULSE 70
== END 2017-02-06 15:40 | disposition home or self-care (01) ==
LOC: RADPROMAIN 12:33
PROVIDERS: ATTEND Internal Medicine
DX: R18.8 Other ascites (principal)
CPT/HCPCS: 36415; 49083; 85049; 85610; 85730

== ENCOUNTER → 2017-07-24 | Outpatient (CLI) | payer OTHER ==
--- NOTE | 2017-07-24 11:36 | US ---
EXAMINATION TYPE: US venous doppler duplex UE LT DATE OF EXAM: 07/24/2017 COMPARISON: NONE CLINICAL HISTORY: Left Arm Swelling; patient stated has left hand swelling only today with decrease i n swelling days since last week; Left PICC removed 06-30-17, on Chemotherapy for ovarian CA and has po rt left subclavian area SIDE PERFORMED: left Left Arm: Negative for DVT and SVT. Nerve is noted at upper left ulnar veins and is seen in long and transverse views on images #[id number], [id number] and [id number]. Small edema channels are noted left posterior hand at swelling and compared to right hand at same level. Grayscale, color doppler, spectral doppler imaging performed of the deep veins of the left upper extr emity. There is normal flow, compressibility and vascular waveforms. IMPRESSION: No ultrasound evidence for acute deep or superficial vein thrombus in the left upper extr emity. Asymmetric soft tissue swelling of left hand is noted at end of study.
== END | disposition home or self-care (01) ==
LOC: RADUSWWP 10:14
PROVIDERS: ATTEND Internal Medicine
DX: M79.89 Other specified soft tissue disorders (principal)

== ENCOUNTER → 2017-09-14 | Outpatient (CLI) | payer OTHER ==
--- NOTE | 2017-09-19 08:27 | MM ---
Reason for exam: screening (asymptomatic). Last mammogram was performed 1 year and 2 months ago. History: Patient is postmenopausal and has history of ovarian cancer at age 56. Family history of breast cancer in maternal grandmother and breast cancer in 2 maternal aunts. Took hormonal contraceptives for 10 years beginning at age 15. Physical Findings: A clinical breast exam by your physician is recommended on an annual basis and results should be correlated with mammographic findings. MG 3D Screening Mammo W/Cad Bilateral CC, MLO, and XCCL view(s) were taken. Prior study comparison: July 26, 2016, bilateral MG screening mammo w CAD. July 07, 2015, bilateral MG screening mammo w CAD. The breast tissue is heterogeneously dense. This may lower the sensitivity of mammography. External device projects at the right pectoralis major. Stable asymmetric densities on the left. No significant changes when compared with prior studies. ASSESSMENT: Negative, BI-RAD 1 RECOMMENDATION: Routine screening mammogram of both breasts in 1 year.
== END | disposition home or self-care (01) ==
LOC: RADMAMWWP 15:06
PROVIDERS: ATTEND Obstetrics & Gynecology
DX: Z12.31 Encounter for screening mammogram for malignant neoplasm of breast (principal)
CPT/HCPCS: 77063; 77067

== ENCOUNTER 2017-12-07 12:33 | Emergency (ER) | payer OTHER ==
[2017-12-07 12:49] VITALS: RESP 18
[2017-12-07] MEDS ORDERED: SODIUM CHLORIDE 0.9% 1,000 ML IV ONE ×3 (14:21→19:29)
[2017-12-07] MEDS ORDERED: HYDROmorphone 1 MG/ML 1 ML SYRINGE IVP STA ×2 (14:21→18:03)
[2017-12-07] MEDS ORDERED: ONDANSETRON 4 MG/2 ML VIAL IVP STA (14:21)
--- NOTE | 2017-12-07 14:23 | ED ---
Abdominal Pain HPI - General Chief Complaint: Abdominal Pain Stated Complaint: Abdominal pain, sent by Dr Flores/Cancer Pt Time Seen by Provider: 12/07/17 13:55 Source: patient, RN notes reviewed, old records reviewed Mode of arrival: ambulatory Limitations: no limitations - History of Present Illness Initial Comments: 57-year-old female presents emergency department today with a history of stage III ovarian cancer. She complains of diffuse abdominal pain multiple symptoms of vomiting today. She does report she is passing gas. Patient states that she her surgical history includes partial bowel resection and then a reattachment of the ileum in September. Her surgeon is Dr. Santiago at [facility]. Patient relates that she's had no bloody emesis or recent bloody stool. She states that she's had a slight fever. She denies any chest pain shortness of breath. - Related Data Home Medications Medication Instructions Recorded Confirmed ALPRAZolam [Xanax] 0.5 mg PO TID PRN 04/01/14 12/07/17 Atenolol [Tenormin] 12.5 mg PO BID 04/01/14 12/07/17 Atorvastatin [Lipitor] 40 mg PO HS 04/01/14 12/07/17 Levothyroxine Sodium [Synthroid] 50 mcg PO DAILY 04/01/14 12/07/17 Aspirin EC [Ecotrin] 81 mg PO DAILY 08/31/16 12/07/17 Ergocalciferol [Vitamin D2 50,000 unit PO Q14D 08/31/16 12/07/17 (DRISDOL)] Acetaminophen [Tylenol Extra 1,000 mg PO DAILY PRN 12/07/17 12/07/17 Strength] DULoxetine HCL [Cymbalta] 30 mg PO DAILY 12/07/17 12/07/17 Docusate [Colace] 100 mg PO DAILY 12/07/17 12/07/17 Ondansetron [Zofran] 4 mg PO Q12HR PRN 12/07/17 12/07/17 Previous Rx's Medication Instructions Recorded Nitroglycerin Sl Tabs [Nitrostat] 0.4 mg SUBLINGUAL Q5M PRN #25 tab 02/18/16 Allergies Allergy/AdvReac Type Severity Reaction Status Date / Time avocado Allergy Dyspnea Verified 12/07/17 14:07 codeine Allergy Nausea & Verified 12/07/17 14:07 Vomiting latex Allergy Rash/Hives Verified 12/07/17 14:07 prednisone AdvReac dizziness Verified 12/07/17 14:07 Review of Systems ROS Statement: Those systems with pertinent positive or pertinent negative responses have been documented in the HPI. ROS Other: All systems not noted in ROS Statement are negative. Past Medical History Past Medical History: Coronary Artery Disease (CAD), Cancer, Chest Pain / Angina , Hyperlipidemia, Myocardial Infarction (NM), Pneumonia, Thyroid Disorder Additional Past Medical History / Comment(s): Ovarian Ca Dx 02/03 Last Myocardial Infarction Date:: 2006 History of Any Multi-Drug Resistant Organisms: None Reported Past Surgical History: Section, Cholecystectomy, Heart Catheterization With Stent, Hysterectomy Additional Past Surgical History / Comment(s): PCI/stent RCA 2006, PCI/stent mid LAD 02/2016, left trigeminal nerve repair, chest port, abd hysterectomy and "debulking", rectovaginal fistule, ileostomy and reveral. Past Anesthesia/Blood Transfusion Reactions: Previous Problems w/ Anesthesia Additional Past Anesthesia/Blood Transfusion Reaction / Comment(s): states was told previously by that anesthesia needed to be dosed to her b/p and not weight Date of Last Stent Placement:: 2006 Past Psychological History: Depression Smoking Status: Former smoker Past Alcohol Use History: None Reported Past Drug Use History: None Reported - Past Family History Father Family Medical History: Cancer Mother Family Medical History: Cancer Additional Family Medical History / Comment(s): ovarian General Exam - General Exam Comments Initial Comments: 49-year-old male. Alert and oriented. No acute distress. Limitations: no limitations General appearance: alert, in no apparent distress Head exam: Present: atraumatic, normocephalic, normal inspection Eye exam: Present: normal appearance, PERRL, EOMI. Absent: scleral icterus, conjunctival injection, periorbital swelling ENT exam: Present: normal exam, normal oropharynx, mucous membranes moist Neck exam: Present: normal inspection. Absent: tenderness, meningismus, lymphadenopathy Respiratory exam: Present: normal lung sounds bilaterally. Absent: respiratory distress, wheezes, rales, rhonchi, stridor Cardiovascular Exam: Present: regular rate, normal rhythm, normal heart sounds. Absent: systolic murmur, diastolic murmur, rubs, gallop, clicks GI/Abdominal exam: Present: tenderness (Is no significant epigastric tenderness , evidence of significant scarring over the mid abdomen.), normal bowel sounds. Absent: soft, distended, guarding, rebound, rigid Extremities exam: Present: normal inspection, full ROM, normal capillary refill. Absent: tenderness, pedal edema, joint swelling, calf tenderness Back exam: Present: normal inspection Neurological exam: Present: alert, oriented X3, CN II-XII intact Psychiatric exam: Present: normal affect, normal mood Skin exam: Present: warm, dry, intact, normal color. Absent: rash Course Vital Signs 12/07/17 12/07/17 12/07/17 12:43 15:00 18:00 Temperature 99.1 F Pulse Rate 77 91 79 Respiratory 18 18 18 Rate Blood Pressure 100/51 98/56 88/52 O2 Sat by Pulse 97 98 98 Oximetry 12/07/17 12/07/17 12/07/17 18:28 19:11 19:22 Temperature Pulse Rate 95 97 Respiratory 18 18 Rate Blood Pressure 87/51 95/52 89/44 O2 Sat by Pulse 98 94 L Oximetry - Reevaluation(s) Reevaluation #1: 12/07/17 17:38 At this time critical value was indicated to me with evidence of free air within the bowel after computed tomography scan. We'll start on antibiotics. Contacting Dr. Flores. Medical Decision Making - Medical Decision Making 57-year-old female presents emergency department. She denies abdominal pain nausea and vomiting for the past day. Past history of ovarian cancer, with ileostomy and reanastomosis in September. Today she has multiple episodes of vomiting but has been passing gas. She reports she feels full and distended in the upper abdomen. Patient's labwork shows mild leukocytosis of 11,000. Patient CT scan was completed and shows evidence of perforated bowel of small bowel. Started the Patient on IV antibiotics, Zosyn and flagyl. Lactic acid was within normal limits at this time. Patient case discussed with Dr. Bunn we' ll discuss it with her PCP Dr. Flores. We'll be transferring the Patient down to [facility] for evaluation by her previous surgeon Dr. Santiaog. She was given 2 L bolus.Starting a third bolus this time. Patient is stable. Sclera are. She appears in no significant distress at this time. She does have surgical tenderness on her abdomen. Last blood pressure is 88/52. I spoke to Dr. Best the fellow for Dr. Santiago. - Lab Data Result diagrams: 12/07/17 15:10 12/07/17 15:10 Lab Results 12/07/17 12/07/17 12/07/17 Range/Units 15:10 15:10 15:10 WBC 11.4 H (3.8-10.6) k/uL RBC 3.78 L (3.80-5.40) m/uL Hgb 11.0 L (11.4-16.0) gm/dL Hct 32.4 L (34.0-46.0) % MCV 85.8 (80.0-100.0) fL MCH 29.1 (25.0-35.0) pg MCHC 34.0 (31.0-37.0) g/dL RDW 15.5 (11.5-15.5) % Plt Count 128 L (150-450) k/uL Neutrophils % 86 % Lymphocytes % 8 % Monocytes % 5 % Eosinophils % 1 % Basophils % 0 % Neutrophils # 9.8 H (1.3-7.7) k/uL Lymphocytes # 0.9 L (1.0-4.8) k/uL Monocytes # 0.5 (0-1.0) k/uL Eosinophils # 0.1 (0-0.7) k/uL Basophils # 0.0 (0-0.2) k/uL Poikilocytosis Slight Sodium 136 L (137-145) mmol/L Potassium 3.9 (3.5-5.1) mmol/L Chloride 101 (98-107) mmol/L Carbon Dioxide 26 (22-30) mmol/L Anion Gap 9 mmol/L BUN 18 H (7-17) mg/dL Creatinine 0.87 (0.52-1.04) mg/dL Est GFR (CKD-EPI)AfAm 85 (>60 ml/min/1.73 sqM) Est GFR (CKD-EPI)NonAf 74 (>60 ml/min/1.73 sqM) Glucose 110 H (74-99) mg/dL Plasma Lactic Acid Magdaleno 1.0 (0.7-2.0) mmol/L Calcium 8.9 (8.4-10.2) mg/dL Total Bilirubin 1.1 (0.2-1.3) mg/dL AST 16 (14-36) U/L ALT 24 (9-52) U/L Alkaline Phosphatase 68 (38-126) U/L Total Protein 6.4 (6.3-8.2) g/dL Albumin 3.4 L (3.5-5.0) g/dL Amylase 49 (30-110) U/L Lipase 26 (23-300) U/L - Radiology Data Radiology results: report reviewed Extensive inflammatory changes with wall thickening and anterior abdomen involving multiple small bowel. Surgical clips. Localized pneumoperitoneum. Consistent with small bowel perforation. Recurrent tumor should be highly considered there is mild to moderate ascites fluid. Mild right basilar atelectasis. Disposition Clinical Impression: Perforated small intestine, Ovarian cancer Disposition: HOME SELF-CARE Condition: Good Is patient prescribed a controlled substance at d/c from ED?: No Referrals: Alexandr Flores MD [Primary Care Provider] - 1-2 days Time of Disposition: 19:52
[2017-12-07] MEDS ORDERED: SODIUM CHLORIDE 0.9% 1,000 ML IV SCH (14:30)
[2017-12-07 15:41] LABS: Basophils % (A) 0 %; Eosinophils # (A) 0.1 k/uL (0-0.7); Eosinophils % (A) 1 %; HCT 32.4 % (34.0-46.0); Lymphocytes # (A) 0.9 k/uL (1.0-4.8); Lymphocytes % (A) 8 %; MCH 29.1 pg (25.0-35.0); MCV 85.8 fL (80.0-100.0); Mean Platelet Volume 7.1; Monocytes # (A) 0.5 k/uL (0-1.0); Monocytes % (A) 5 %; Neutrophils # (A) 9.8 k/uL (1.3-7.7); Neutrophils % (A) 86 %; Platelet Count 128 k/uL (150-450); Poikilocytosis Slight; RBC 3.78 m/uL (3.80-5.40); RDW 15.5 % (11.5-15.5); WBC 11.4 k/uL (3.8-10.6)
[2017-12-07 15:52] LABS: Albumin 3.4 g/dL (3.5-5.0); Calcium 8.9 mg/dL (8.4-10.2); Potassium 3.9 mmol/L (3.5-5.1); Total Bilirubin 1.1 mg/dL (0.2-1.3); Total Protein 6.4 g/dL (6.3-8.2)
[2017-12-07] MEDS ORDERED: PIPERACILLIN-TAZOBACTAM 3.375 GM in DEXTROSE/WATER 1 50ML.BAG IVPB STA (17:28)
--- NOTE | 2017-12-07 17:35 | CT ---
EXAMINATION TYPE: CT abdomen pelvis w con DATE OF EXAM: 12/07/2017 COMPARISON: 01/17/2017 HISTORY: abdominal pain CT DLP: 1384.1 mGycm Automated exposure control for dose reduction was used. TECHNIQUE: Helical acquisition of images was performed from the lung bases through the pelvis. CONTRAST: Performed without Oral Contrast and with IV Contrast, patient injected with 100mL mL of Isovue 300. FINDINGS: There is subsegmental atelectasis at the right posterior lung base. There is no pleural effusion. Yancy er shows no focal defect. Heart size is normal. There is no pericardial effusion. There is no hiatal hernia. Spleen appears normal. Pancreas appears normal. There are clips from cholecystectomy. Bile du cts are not dilated. There is free fluid in the upper abdomen posterior to the stomach consistent with ascites in the less er sac. There is also some fluid around the descending duodenum. There are surgical clips in the epigastrium. There is intestinal wall thickening and localized pneumo peritoneum in the anterior abdomen. There is some intestinal wall thickening and distortion of the marj wel loops along the anterior abdominal wall. Kidneys have normal size and contour. There is normal contrast enhancement. There is no adrenal mass. There is no hydronephrosis. There is no retroperitoneal adenopathy. Lumbar spine is intact. I see no bony destructive process. Fecal pattern in the left colon is fairly normal. Bladder distends smoothly. I see no pelvic mass. There is no evidence of inguinal hernia or a denopathy. There is broad-based ventral hernia that contains distorted distended loops of fluid-fille d small bowel IMPRESSION: THERE ARE EXTENSIVE INFLAMMATORY TYPE CHANGES WITH WALL THICKENING IN THE ANTERIOR ABDOMEN INVOLVING MULTIPLE LOOPS OF SMALL BOWEL. THERE ARE SURGICAL CLIPS. THERE IS LOCALIZED PNEUMOPERITONEUM. THIS IS CONSISTENT WITH SMALL BOWEL PERFORATION. RECURRENT TUMOR SHOULD BE HIGHLY CONSIDERED. THERE IS MILD TO MODERATE ASCITES FLUID. MILD RIGHT BASILAR ATELECTASIS. THIS EXAM WAS DISCUSSED WITH THE ER PHYSICIAN AT 5:30 PM.
[2017-12-07] MEDS ORDERED: metroNIDAZOLE-NS PMX 500 MG in SALINE 1 100ML.BAG IVPB STA (18:09)
[2017-12-07] MEDS ORDERED: ACETAMINOPHEN IV (For NPO) 1,000 MG in EMPTY BAG 1 BAG IVPB STA (18:16)
[2017-12-07 20:12] VITALS: TEMP 98.4
[2017-12-07 20:36] VITALS: BP 94/51; PULSE 68
== END 2017-12-07 20:36 | disposition home or self-care (01) ==
LOC: EC 12:33
DX: K63.1 Perforation of intestine (nontraumatic) (principal); D72.829 Elevated white blood cell count, unspecified; I25.119 Atherosclerotic heart disease of native coronary artery with unspecified angina pectoris; E78.5 Hyperlipidemia, unspecified; I25.2 Old myocardial infarction; E07.9 Disorder of thyroid, unspecified; F32.9 Major depressive disorder, single episode, unspecified; Z85.43 Personal history of malignant neoplasm of ovary; Z87.891 Personal history of nicotine dependence; Z79.82 Long term (current) use of aspirin; Z79.899 Other long term (current) drug therapy; Z88.5 Allergy status to narcotic agent; Z91.040 Latex allergy status; Z88.8 Allergy status to other drugs, medicaments and biological substances; Z91.018 Allergy to other foods; Z90.710 Acquired absence of both cervix and uterus; Z95.5 Presence of coronary angioplasty implant and graft; Z93.2 Ileostomy status
CPT/HCPCS: 36415; 80053; 82150; 83605; 83690; 85025; 87040; 74177; 99285; 96365; 96366 ×2; 96368; 96375 ×3; 96376; 96361; J2405; J1170; J2543; J0131

== ENCOUNTER → 2018-03-27 | Outpatient (CLI) | payer OTHER ==
[2018-03-27 09:12] VITALS: BP 111/65; PULSE 57; RESP 16; TEMP 98.1
== END | disposition home or self-care (01) ==
LOC: PROCWHC3 08:44
PROVIDERS: ATTEND Internal Medicine
DX: Z45.2 Encounter for adjustment and management of vascular access device (principal); Z92.21 Personal history of antineoplastic chemotherapy
CPT/HCPCS: 96523; J1642

== ENCOUNTER → 2018-10-29 | Outpatient (CLI) | payer OTHER ==
--- NOTE | 2018-10-30 13:45 | MM ---
Reason for exam: screening (asymptomatic). Last mammogram was performed 1 year and 1 month ago. History: Patient is postmenopausal and has history of ovarian cancer at age 56. Family history of breast cancer in maternal grandmother and breast cancer in 2 maternal aunts. Took hormonal contraceptives for 10 years beginning at age 15. Physical Findings: A clinical breast exam by your physician is recommended on an annual basis and results should be correlated with mammographic findings. MG 3D Screening Mammo W/Cad Bilateral CC and MLO view(s) were taken. Prior study comparison: September 14, 2017, bilateral MG 3d screening mammo w/cad. July 26, 2016, bilateral MG screening mammo w CAD. The breast tissue is heterogeneously dense. This may lower the sensitivity of mammography. No suspicious abnormality. No significant changes when compared with prior studies. ASSESSMENT: Negative, BI-RAD 1 RECOMMENDATION: Routine screening mammogram of both breasts in 1 year.
== END | disposition home or self-care (01) ==
LOC: RADMAMWWP 09:42
PROVIDERS: ATTEND Internal Medicine
DX: Z12.31 Encounter for screening mammogram for malignant neoplasm of breast (principal)
CPT/HCPCS: 77063; 77067

== ENCOUNTER → 2019-07-24 | Outpatient (CLI) | payer BC ==
[~2019-07-24] MED LIST: SODIUM CHLORIDE 0.9% 500 ML 500 ML in EMPTY BAG 1 BAG IV PRN
[2019-07-24 11:50] VITALS: RESP 16
[2019-07-24 12:22] LABS: Anisocytosis Slight; Basophils % (A) 1 %; Eosinophils # (A) 0.1 k/uL (0-0.7); Eosinophils % (A) 1 %; HCT 29.5 % (34.0-46.0); HGB 9.7 gm/dL (11.4-16.0); Lymphocytes # (A) 1.3 k/uL (1.0-4.8); Lymphocytes % (A) 23 %; MCH 32.2 pg (25.0-35.0); MCV 97.7 fL (80.0-100.0); Macrocytosis Slight; Mean Platelet Volume 7.7; Monocytes # (A) 0.3 k/uL (0-1.0); Monocytes % (A) 5 %; Neutrophils # (A) 3.8 k/uL (1.3-7.7); Neutrophils % (A) 67 %; Platelet Count 123 k/uL (150-450); Poikilocytosis Slight; RBC 3.02 m/uL (3.80-5.40); RDW 16.7 % (11.5-15.5); WBC 5.7 k/uL (3.8-10.6)
[2019-07-24 13:45] LABS: Albumin 4.3 g/dL (3.5-5.0); Calcium 9.7 mg/dL (8.4-10.2); Magnesium 1.4 mg/dL (1.6-2.3); Potassium 3.8 mmol/L (3.5-5.1); Total Bilirubin 0.7 mg/dL (0.2-1.3); Total Protein 7.1 g/dL (6.3-8.2)
[2019-07-24 19:10] LABS: Cancer Antigen 125 5.8 U/mL (0.0-30.1)
== END | disposition home or self-care (01) ==
LOC: PROCWHC3 11:39
PROVIDERS: ATTEND Internal Medicine
DX: E78.5 Hyperlipidemia, unspecified (principal); I25.10 Atherosclerotic heart disease of native coronary artery without angina pectoris; C48.2 Malignant neoplasm of peritoneum, unspecified
CPT/HCPCS: 80061; 80053; 86304; 83735; 85025; 36591; J1642

== ENCOUNTER → 2020-01-08 | Day surgery (SDC) | payer BC ==
[2020-01-06 13:26] VITALS: BMI 38.6
[~2020-01-08] MED LIST changes: +HEPARIN SODIUM,PORCINE 100 UNIT/ML 5 ML VIAL IV ONE; +LACTATED RINGERS 1,000 ML IV SCH; +LIDOCAINE 1% (10MG/ML) FOR IV START INTRADERMA PRN; +MIDAZOLAM 2 MG/2 ML VIAL ONE; +PROPOFOL 10 MG/ML 20 ML VIAL IV ONE; -SODIUM CHLORIDE 0.9% 500 ML 500 ML in EMPTY BAG 1 BAG IV PRN
[2020-01-08 08:57] VITALS: TEMP 96.8
--- NOTE | 2020-01-08 09:59 | P.PCN ---
Date of Procedure: 01/08/20 Procedure(s) Performed: Brief history: Patient is a pleasant 59-year-old white female scheduled for an elective upper endoscopy as well as colonoscopy as a part of evaluation of abdominal pain, anemia and intermittent rectal bleeding for the last 6 months duration. She was diagnosed with ovarian cancer stage III in 2016, and underwent chemotherapy followed by exploratory laparotomy and debulking surgery. 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 She finished her chemotherapy in May of this year for recurrence. Lately has been having intermittent rectal bleeding. Procedure performed: Esophagogastroduodenoscopy with biopsy Colonoscopy Preoperative diagnosis: Abdominal pain/anemia and intermittent rectal bleeding History of ovarian cancer diagnosed 3 years ago Anesthesia: MAC Procedure: After informed consent was obtained from the patient was brought into the endoscopy unit and IV sedation was administered by anesthesia under continuous monitoring. Initially upper endoscopy was done. The Olympus GF 160 video endoscope was inserted inserted into the mouth and esophagus intubated without any difficulty and was gradually advanced into the stomach and duodenum and carefully examined. The bulb and second part of the duodenum appeared normal. Biopsies were done duodenum. The scope was then withdrawn into the stomach adequately insufflated with air and upon careful examination the antrum had minimal gastritis and biopsies were done from this area. The body, cardia and fundus appeared normal. The scope was then withdrawn into the esophagus. The GE junction was located at 40 cm to the incisors. It appeared regular with no erythema erosions or ulcerations. Rest of the esophagus appeared normal. Patient tolerated the procedure well. At this time the patient continued to remain sedation. Initial digital rectal examination was normal. Olympus CF 160 video colonoscope was then inserted into the rectum and gradually advanced to the cecum without any difficulty. Careful examination was performed as the scope was gradually being withdrawn. The prep was excellent. The cecum, ascending colon, transverse colon, descending colon, sigmoid colon and rectum appeared normal. There were case noted in the proximal rectum at 14 cm from the anal verge. Retroflexion was performed in the rectum and grade 2 internal hemorrhoids were noted. Patient tolerated the procedure well. Impression: 1. Upper endoscopy revealed minimal antral gastritis but no evidence of esophagitis or peptic ulcer disease 2. Colonoscopy revealed grade 2 internal hemorrhoids but no evidence of colitis or colorectal neoplasia Recommendations: Findings of this examination were discussed with the patient as well as her family. She was advised to follow with the biopsy results. Recommended a high- fiber diet and avoid straining and constipation. She can have a repeat colonoscopy in 10 years.
[2020-01-08 10:22] VITALS: BP 132/69; PULSE 57; RESP 20
== END ==
LOC: ORWHC2ENDO 08:29
PROVIDERS: ATTEND Internal Medicine Gastroenterology
DX: K29.50 Unspecified chronic gastritis without bleeding (principal); Z85.43 Personal history of malignant neoplasm of ovary; Z92.21 Personal history of antineoplastic chemotherapy; Z98.890 Other specified postprocedural states; K64.1 Second degree hemorrhoids; D50.9 Iron deficiency anemia, unspecified; I25.10 Atherosclerotic heart disease of native coronary artery without angina pectoris; F41.9 Anxiety disorder, unspecified; I10 Essential (primary) hypertension; Z95.820 Peripheral vascular angioplasty status with implants and grafts; I25.2 Old myocardial infarction; Z90.49 Acquired absence of other specified parts of digestive tract; Z98.891 History of uterine scar from previous surgery; Z90.710 Acquired absence of both cervix and uterus; Z79.890 Hormone replacement therapy; Z79.899 Other long term (current) drug therapy; Z88.5 Allergy status to narcotic agent; Z88.8 Allergy status to other drugs, medicaments and biological substances
CPT/HCPCS: 88305; 45378; 43239; J2250; J1642; J2704

== ENCOUNTER 2020-01-22 12:40 | Inpatient (IN) | payer BC ==
[2020-01-22] MEDS ORDERED: ALBUTEROL HFA INHALER INHALATION STA (13:06)
--- NOTE | 2020-01-22 13:06 | ED ---
Fever HPI - General Chief Complaint: Shortness of Breath Stated Complaint: +COVID, Ca hx, low o2 Time Seen by Provider: 01/22/20 13:05 Source: patient, RN notes reviewed, old records reviewed Mode of arrival: wheelchair Limitations: no limitations - History of Present Illness Initial Comments: this is a 59-year-old female DF for evaluation patient presents today for evaluation of shortness of breath. Patient is cough and congestion.patient has persistent cough congestion shortness of breath. Patient has known coronavirus diagnosis also developing fever, weakness.patient also complains of anemia MD Complaint: fever, malaise, weakness -: days(s) Temperature Source: subjective Context: multiple patients with similar symptoms Associated Symptoms: chills, rigors, cough Treatments Prior to Arrival: none - Related Data Home Medications Medication Instructions Recorded Confirmed ALPRAZolam [Xanax] 0.5 mg PO HS PRN 04/01/14 01/08/20 Atorvastatin [Lipitor] 40 mg PO HS 04/01/14 01/08/20 Levothyroxine Sodium [Synthroid] 75 mcg PO DAILY 04/01/14 01/08/20 atenoloL [Tenormin] 12.5 mg PO BID 04/01/14 01/08/20 Ergocalciferol [Vitamin D2 50,000 unit PO Q14D 08/31/16 01/08/20 (DRISDOL)] DULoxetine HCL [Cymbalta] 30 mg PO DAILY 12/07/17 01/08/20 Docusate [Colace] 100 mg PO BID 12/07/17 01/08/20 Furosemide [Lasix] 40 mg PO Q48H 01/06/20 01/08/20 Magnesium 250 mg PO Q48H 01/06/20 01/08/20 Pyridoxine [Vitamin B-6] 150 mg PO BID 01/06/20 01/08/20 Rucaparib Camsylate [Rubraca] 400 mg PO BID 01/06/20 01/08/20 Previous Rx's Medication Instructions Recorded Nitroglycerin Sl Tabs [Nitrostat] 0.4 mg SUBLINGUAL Q5M PRN #25 tab 02/18/16 Allergies Allergy/AdvReac Type Severity Reaction Status Date / Time avocado Allergy Dyspnea Verified 01/22/20 12:51 codeine Allergy Nausea & Verified 01/22/20 12:51 Vomiting latex Allergy Rash/Hives Verified 01/22/20 12:51 prednisone AdvReac dizziness Verified 01/22/20 12:51 prochlorperazine AdvReac Hallucinati Verified 01/22/20 12:51 [From Compazine] ons Review of Systems ROS Statement: Those systems with pertinent positive or pertinent negative responses have been documented in the HPI. ROS Other: All systems not noted in ROS Statement are negative. Past Medical History Past Medical History: Coronary Artery Disease (CAD), Cancer, Chest Pain / Angina, Hyperlipidemia, Myocardial Infarction ([place]), Pneumonia, Thyroid Disorder Additional Past Medical History / Comment(s): Ovarian Stage III Ca (peritoneal) Dx 02/03 received chemo, had bowel resection and is now on oral chemo. 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 Past Anesthesia/Blood Transfusion Reactions: Previous Problems w/ Anesthesia Additional Past Anesthesia/Blood Transfusion Reaction / Comment(s): states was told previously by that anesthesia needed to be dosed to her b/p and not weight. hx of receiving 28 units of blood during cancer tx Date of Last Stent Placement:: 2015 Past Psychological History: Depression Smoking Status: Former smoker Past Alcohol Use History: None Reported Past Drug Use History: None Reported - Past Family History Father Family Medical History: Cancer Additional Family Medical History / Comment(s): colon cancer Mother Family Medical History: Cancer Additional Family Medical History / Comment(s): ovarian General Exam Limitations: no limitations General appearance: alert, in no apparent distress Head exam: Present: atraumatic, normocephalic, normal inspection Eye exam: Present: normal appearance, PERRL, EOMI. Absent: scleral icterus, conjunctival injection, periorbital swelling ENT exam: Present: normal exam, mucous membranes dry Neck exam: Present: normal inspection. Absent: tenderness, meningismus, lymphadenopathy Respiratory exam: Present: normal lung sounds bilaterally. Absent: respiratory distress, wheezes, rales, rhonchi, stridor Cardiovascular Exam: Present: regular rate, normal rhythm, normal heart sounds. Absent: systolic murmur, diastolic murmur, rubs, gallop, clicks GI/Abdominal exam: Present: soft, normal bowel sounds. Absent: distended, tenderness, guarding, rebound, rigid Extremities exam: Present: normal inspection, full ROM, normal capillary refill. Absent: tenderness, pedal edema, joint swelling, calf tenderness Back exam: Present: normal inspection Neurological exam: Present: alert, oriented X3, CN II-XII intact Psychiatric exam: Present: normal affect, normal mood Skin exam: Present: warm, dry, intact, normal color. Absent: rash Course Vital Signs 01/22/20 12:48 Temperature 100.6 F H Pulse Rate 79 Respiratory 22 Rate Blood Pressure 102/66 O2 Sat by Pulse 90 L Oximetry - Reevaluation(s) Reevaluation #1: 01/22/20 15:14 medical record is reviewed 01/22/20 15:14 patient symptoms controlled Reevaluation #2: 01/22/20 15:16 patient does feel better with symptom management here in the ER Reevaluation #3: 01/22/20 15:16 patient is informed results and questions are answered - Consultations Consultation #1: spoke with sound who agrees to admit this patient Medical Decision Making - Medical Decision Making 59 female known coronavirus diagnosis pneumonia on x-ray low oxygen. Patient will be admitted for cardiopulmonary monitoring and support, infectious disease to evaluate - Lab Data Result diagrams: 01/22/20 13:51 01/22/20 13:51 Lab Results 01/22/20 01/22/20 01/22/20 Range/Units 13:51 13:51 13:51 WBC 2.4 L (3.8-10.6) k/uL RBC 2.73 L (3.80-5.40) m/uL Hgb 8.7 L (11.4-16.0) gm/dL Hct 25.8 L (34.0-46.0) % MCV 94.5 (80.0-100.0) fL MCH 31.8 (25.0-35.0) pg MCHC 33.7 (31.0-37.0) g/dL RDW 17.2 H (11.5-15.5) % Plt Count 100 L (150-450) k/uL Neutrophils % 75 % Lymphocytes % 18 % Monocytes % 5 % Eosinophils % 0 % Basophils % 0 % Neutrophils # 1.8 (1.3-7.7) k/uL Lymphocytes # 0.4 L (1.0-4.8) k/uL Monocytes # 0.1 (0-1.0) k/uL Eosinophils # 0.0 (0-0.7) k/uL Basophils # 0.0 (0-0.2) k/uL Poikilocytosis Moderate Anisocytosis Slight PT 9.4 (9.0-12.0) sec INR 0.9 (<1.2) APTT 29.4 (22.0-30.0) sec Sodium 134 L (137-145) mmol/L Potassium 3.6 (3.5-5.1) mmol/L Chloride 101 (98-107) mmol/L Carbon Dioxide 25 (22-30) mmol/L Anion Gap 8 mmol/L BUN 18 H (7-17) mg/dL Creatinine 0.79 (0.52-1.04) mg/dL Est GFR (CKD-EPI)AfAm >90 (>60 ml/min/1.73 sqM) Est GFR (CKD-EPI)NonAf 82 (>60 ml/min/1.73 sqM) Glucose 117 H (74-99) mg/dL Plasma Lactic Acid Magdaleno (0.7-2.0) mmol/L Calcium 8.0 L (8.4-10.2) mg/dL Magnesium 1.7 (1.6-2.3) mg/dL Total Bilirubin 1.0 (0.2-1.3) mg/dL AST 76 H (14-36) U/L ALT 22 (4-34) U/L Alkaline Phosphatase 66 (38-126) U/L Lactate Dehydrogenase 1455 H (313-618) U/L C-Reactive Protein 62.7 H (<10.0) mg/L Total Protein 6.3 (6.3-8.2) g/dL Albumin 3.5 (3.5-5.0) g/dL 01/22/20 Range/Units 13:51 WBC (3.8-10.6) k/uL RBC (3.80-5.40) m/uL Hgb (11.4-16.0) gm/dL Hct (34.0-46.0) % MCV (80.0-100.0) fL MCH (25.0-35.0) pg MCHC (31.0-37.0) g/dL RDW (11.5-15.5) % Plt Count (150-450) k/uL Neutrophils % % Lymphocytes % % Monocytes % % Eosinophils % % Basophils % % Neutrophils # (1.3-7.7) k/uL Lymphocytes # (1.0-4.8) k/uL Monocytes # (0-1.0) k/uL Eosinophils # (0-0.7) k/uL Basophils # (0-0.2) k/uL Poikilocytosis Anisocytosis PT (9.0-12.0) sec INR (<1.2) APTT (22.0-30.0) sec Sodium (137-145) mmol/L Potassium (3.5-5.1) mmol/L Chloride (98-107) mmol/L Carbon Dioxide (22-30) mmol/L Anion Gap mmol/L BUN (7-17) mg/dL Creatinine (0.52-1.04) mg/dL Est GFR (CKD-EPI)AfAm (>60 ml/min/1.73 sqM) Est GFR (CKD-EPI)NonAf (>60 ml/min/1.73 sqM) Glucose (74-99) mg/dL Plasma Lactic Acid Magdal[place] 1.8 (0.7-2.0) mmol/L Calcium (8.4-10.2) mg/dL Magnesium (1.6-2.3) mg/dL Total Bilirubin (0.2-1.3) mg/dL AST (14-36) U/L ALT (4-34) U/L Alkaline Phosphatase (38-126) U/L Lactate Dehydrogenase (313-618) U/L C-Reactive Protein (<10.0) mg/L Total Protein (6.3-8.2) g/dL Albumin (3.5-5.0) g/dL - EKG Data -: EKG Interpreted by Me (EKG shows sinus rhythm 78 MO 174 QRS 94 QTC 490) - Radiology Data Radiology results: report reviewed (hest x-rays positive for pneumonia), image reviewed Critical Care Time Critical Care Time: Yes Total Critical Care Time: 31 Disposition Clinical Impression: Pneumonia, Community acquired pneumonia, Coronavirus infection Disposition: ADMITTED IP TO THIS HOSP Condition: Fair Is patient prescribed a controlled substance at d/c from ED?: No Referrals: Adal Dickey MD [Primary Care Provider] - 1-2 days
--- NOTE | 2020-01-22 14:17 | XR ---
EXAMINATION TYPE: XR chest 1V portable DATE OF EXAM: 01/22/2020 COMPARISON: Prior chest x-ray January 13, 2017 HISTORY: Cough and fever. Suspected COVID-19 pneumonia TECHNIQUE: Single AP portable frontal view of the chest is obtained. FINDINGS: Low lung volumes are redemonstrated. Horizontal left basilar opacity consistent with scarr ing and/or atelectasis again seen. New right basilar opacity noted. Slightly elevated right hemidiaph ragm on current study. No pleural effusion or pneumothorax. The cardiac silhouette size is upper limi ts of normal. The osseous structures are intact. Right internal jugular Mediport catheter terminating in SVC new from prior studies. IMPRESSION: New Elevated right hemidiaphragm with right basilar acute infiltrate and/or atelectasis .
[2020-01-22 14:28] LABS: Anisocytosis Slight; Basophils % (A) 0 %; Eosinophils % (A) 0 %; HCT 25.8 % (34.0-46.0); HGB 8.7 gm/dL (11.4-16.0); Lymphocytes # (A) 0.4 k/uL (1.0-4.8); Lymphocytes % (A) 18 %; MCH 31.8 pg (25.0-35.0); MCHC 33.7 g/dL (31.0-37.0); MCV 94.5 fL (80.0-100.0); Mean Platelet Volume 8.3; Monocytes # (A) 0.1 k/uL (0-1.0); Monocytes % (A) 5 %; Neutrophils # (A) 1.8 k/uL (1.3-7.7); Neutrophils % (A) 75 %; Platelet Count 100 k/uL (150-450); Poikilocytosis Moderate; RBC 2.73 m/uL (3.80-5.40); RDW 17.2 % (11.5-15.5); WBC 2.4 k/uL (3.8-10.6)
[2020-01-22 14:32] LABS: INR 0.9 (<1.2); Partial Thromboplastin Time 29.4 sec (22.0-30.0); Prothrombin Time 9.4 sec (9.0-12.0)
[2020-01-22 14:44] LABS: ALT 22 U/L (4-34); AST 76 U/L (14-36); African American GFR (CKD) >90 (>60 ml/min/1.73 sqM); Albumin 3.5 g/dL (3.5-5.0); Alkaline Phosphatase 66 U/L (38-126); Anion Gap 8 mmol/L; Blood Urea Nitrogen 18 mg/dL (7-17); C Reactive Protein 62.7 mg/L (<10.0); Carbon Dioxide 25 mmol/L (22-30); Chloride 101 mmol/L (98-107); Glucose 117 mg/dL (74-99); LDH 1455 U/L (313-618); Magnesium 1.7 mg/dL (1.6-2.3); Non-African American GFR(CKD) 82 (>60 ml/min/1.73 sqM); Potassium 3.6 mmol/L (3.5-5.1); Sodium 134 mmol/L (137-145); Total Protein 6.3 g/dL (6.3-8.2)
[2020-01-22] MEDS ORDERED: PNEUMONIA PROTOCOL UTILIZED 1 EACH MISC PO PRN (15:10)
[2020-01-22] MEDS ORDERED: AZITHROMYCIN 500 MG in SODIUM CHLORIDE 0.9% 250 ML IVPB STA (15:10)
[2020-01-22] MEDS ORDERED: SODIUM CHLORIDE 0.9% 1,000 ML IV SCH (15:15)
[2020-01-22] MEDS: ALBUTEROL HFA INHALER INHALATION SCH ×2 (16:46→19:29)
--- NOTE | 2020-01-22 17:02 | P.HPIM ---
History of Present Illness H&P Date: 01/22/20 Chief Complaint: dyspnea 59-year-old woman with past medical history of hypothyroidism, ovarian cancer on rubraca,, CAD status post PCI 2 last in 2015, hypertension, hyperlipidemia, peripheral neuropathy from chemotherapy, anxiety presented with increasing shortness breath. Patient tells me that she's had symptoms for about 9 days, was diagnosed with Covid 19 seven days ago. Since that time, she's had increasing shortness of breath. She's also felt weak, with nausea, vomiting, diarrhea, myalgia, chills, fevers. She has been off of her monoclonal antibody for ovarian cancer since she was diagnosed with coronavirus. She otherwise denies any symptoms of chest pain, palpitations, abdominal pain, dysuria, dyschezia, but does note that she's been urinating less frequently than normal for her. On arrival patient is febrile to 100.6, 102/66, heart rate 79, 90% on room air. She improved to 97% on 2 L of nasal cannula. CBC is markable for pancytopenia with leukopenia and 2.4, lymphopenia that 400, anemia 8.7, which is her baseline, platelet count of 100, with baseline of 140. Chemistries are remarkable for hyponatremia 134, BUNs of 18, creatinine is normal, lactic acid is 1.8. AST was 76. Chest x-ray shows a right basilar acute infiltrate with an elevated right hemidiaphragm concerning for superimposed pneumonia. EKG showed normal sinus rhythm Review of Systems All Systems reviewed and pertinent positives and negatives noted in HPI, all other symptoms are negative Past Medical History Past Medical History: Coronary Artery Disease (CAD), Cancer, Chest Pain / Angina, Hyperlipidemia, Myocardial Infarction ([place]), Pneumonia, Thyroid Disorder Additional Past Medical History / Comment(s): Ovarian Stage III Ca (peritoneal) Dx 02/03 received chemo, had bowel resection and is now on oral chemo. 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 Past Anesthesia/Blood Transfusion Reactions: Previous Problems w/ Anesthesia Additional Past Anesthesia/Blood Transfusion Reaction / Comment(s): states was told previously by that anesthesia needed to be dosed to her b/p and not weight. hx of receiving 28 units of blood during cancer tx Date of Last Stent Placement:: 2015 Past Psychological History: Depression Smoking Status: Former smoker Past Alcohol Use History: None Reported Past Drug Use History: None Reported - Past Family History Father Family Medical History: Cancer Additional Family Medical History / Comment(s): colon cancer Mother Family Medical History: Cancer Additional Family Medical History / Comment(s): ovarian Medications and Allergies Home Medications Medication Instructions Recorded Confirmed Type ALPRAZolam [Xanax] 0.5 mg PO HS PRN 04/01/14 01/08/20 History Atorvastatin [Lipitor] 40 mg PO HS 04/01/14 01/08/20 History Levothyroxine Sodium [Synthroid] 75 mcg PO DAILY 04/01/14 01/08/20 History atenoloL [Tenormin] 12.5 mg PO BID 04/01/14 01/08/20 History Nitroglycerin Sl Tabs [Nitrostat] 0.4 mg SUBLINGUAL Q5M PRN #25 tab 02/18/16 01/08/20 Rx Ergocalciferol [Vitamin D2 50,000 unit PO Q14D 08/31/16 01/08/20 History (BIBI)] DULoxetine HCL [Cymbalta] 30 mg PO DAILY 12/07/17 01/08/20 History Docusate [Colace] 100 mg PO BID 12/07/17 01/08/20 History Furosemide [Lasix] 40 mg PO Q48H 01/06/20 01/08/20 History Magnesium 250 mg PO Q48H 01/06/20 01/08/20 History Pyridoxine [Vitamin B-6] 150 mg PO BID 01/06/20 01/08/20 History Rucaparib Camsylate [Rubraca] 400 mg PO BID 01/06/20 01/08/20 History Allergies Allergy/AdvReac Type Severity Reaction Status Date / Time avocado Allergy Dyspnea Verified 11/04/20 12:51 codeine Allergy Nausea & Verified 01/22/20 12:51 Vomiting latex Allergy Rash/Hives Verified 01/22/20 12:51 prednisone AdvReac dizziness Verified 01/22/20 12:51 prochlorperazine AdvReac Hallucinati Verified 01/22/20 12:51 [From Compazine] ons Physical Exam Osteopathic Statement: *. No significant issues noted on an osteopathic structural exam other than those noted in the History and Physical/Consult. Vitals: Vital Signs Temp Pulse Resp BP Pulse Ox 01/22/20 15:30 71 18 101/67 97 01/22/20 12:48 100.6 F H 79 22 102/66 90 L Intake and Output 01/22/20 01/22/20 01/22/20 06:59 14:59 22:59 Other: Weight 101.605 kg Gen: awake, alert HEENT: normocephalic, atraumatic, good hearing acuity, moist mucous membranes Resp: Breathing comfortably on 2 L nasal cannula without any accessory muscle use CVS: good distal perfusion x 4, RRR, no murmurs, clicks, gallops GI: soft, NTTP, ND : no SPT, no CVAT, healy catheter is not present MSK: Bilateral pitting edema, no clubbing Neuro: non-focal, no sensory deficits, appropriate tone Psych: cooperative, euthymic mood Results CBC & Chem 7: 01/22/20 13:51 01/22/20 13:51 Labs: Abnormal Lab Results - Last 24 Hours (Table) 01/22/20 01/22/20 Range/Units 13:51 13:51 WBC 2.4 L (3.8-10.6) k/uL RBC 2.73 L (3.80-5.40) m/uL Hgb 8.7 L (11.4-16.0) gm/dL Hct 25.8 L (34.0-46.0) % RDW 17.2 H (11.5-15.5) % Plt Count 100 L (150-450) k/uL Lymphocytes # 0.4 L (1.0-4.8) k/uL Sodium 134 L (137-145) mmol/L BUN 18 H (7-17) mg/dL Glucose 117 H (74-99) mg/dL Calcium 8.0 L (8.4-10.2) mg/dL AST 76 H (14-36) U/L Lactate Dehydrogenase 1455 H (313-618) U/L C-Reactive Protein 62.7 H (<10.0) mg/L Assessment and Plan Assessment: 1. Acute hypoxemic respiratory failure 2. Covid 19 3. Community acquired pneumonia 4. Ovarian cancer on immunosuppressant monoclonal antibody 5. CAD status post PCI 6. Hypertension, essential 7. Hyperlipidemia 8. Anxiety 9. Hypothyroidism 5-year-old woman with past medical history of hypothyroidism, hypertension, hyperlipidemia, anxiety, CAD, ovarian cancer on immunosuppressant monoclonal antibody presented with acute hypoxemic respiratory failure in the background of being tested positive for Covid 19 seven days ago with symptoms for 9 days as well as superimposed community acquired pneumonia. Plan: - admit to telemetry - oxygen PRN - droplet precautions - dexamethasone day 03/29 - will defer remdesivir/plasma decision to pulmonary consult, patient unlikely to benefit so far outside of window - Vit C/D, Zn, famotidine 20mg BID - pulmonary consult, appreciate recs - ceftriaxone/azithromycin day 1/? - inflammatory markers: CBC, CMP, Mg, CRP, D-Dimer, Ferritin, LDH, Procalcitonin - holding rubraca - patient is not on ASA or Plavix per her outpatient oncologist, will continue to hold - continue home atenolol - continue home lipitor - continue home synthroid DNAR
[2020-01-22] MEDS: DEXAMETHASONE SOD PHOSPHATE 10 MG/ML 1 ML VIAL IV SCH (17:44)
[2020-01-22] MEDS: FAMOTIDINE 20 MG TAB PO SCH (21:39)
[2020-01-22] MEDS: ATORVASTATIN 40 MG TAB PO SCH (21:39)
[2020-01-22] MEDS: atenoloL 25 MG TAB PO SCH (21:39)
[2020-01-22] MEDS ORDERED: ACETAMINOPHEN TAB 325 MG TAB PO PRN (22:09)
[2020-01-22] MEDS: ALPRAZolam 0.5 MG TAB PO PRN (22:50)
[2020-01-22] MEDS: PYRIDOXINE 50 MG TAB PO SCH (22:50)
[2020-01-23 00:29] LABS: Ferritin 1790.9 ng/mL (10.0-291.0)
[2020-01-23] MEDS: LEVOTHYROXINE 75 MCG TAB PO SCH (05:34)
[2020-01-23 07:19] LABS: D-Dimer 0.7 mg/L FEU (<0.60); INR 0.9 (<1.2); Prothrombin Time 9.7 sec (9.0-12.0)
[2020-01-23 07:39] LABS: Anisocytosis Slight; Basophils % (A) 0 %; Eosinophils % (A) 1 %; HCT 22.2 % (34.0-46.0); HGB 7.4 gm/dL (11.4-16.0); Hypochromasia Slight; Lymphocytes # (A) 0.5 k/uL (1.0-4.8); Lymphocytes % (A) 25 %; MCH 32.1 pg (25.0-35.0); MCHC 33.3 g/dL (31.0-37.0); MCV 96.3 fL (80.0-100.0); Mean Platelet Volume 8.5; Monocytes # (A) 0.1 k/uL (0-1.0); Monocytes % (A) 5 %; Neutrophils # (A) 1.4 k/uL (1.3-7.7); Neutrophils % (A) 66 %; Poikilocytosis Moderate; RBC 2.31 m/uL (3.80-5.40); RDW 17.4 % (11.5-15.5); WBC 2.1 k/uL (3.8-10.6)
[2020-01-23] MEDS: ZINC SULFATE 220 MG CAP PO SCH (07:58)
[2020-01-23] MEDS: CHOLECALCIFEROL 400 UNIT TAB PO SCH (07:58)
[2020-01-23] MEDS: DULoxetine HCL 30 MG CAPSULE.DR PO SCH (07:58)
[2020-01-23] MEDS: DEXAMETHASONE SOD PHOSPHATE 10 MG/ML 1 ML VIAL IV SCH (07:59)
[2020-01-23] MEDS: ASCORBIC ACID 500 MG TAB PO SCH (07:59)
[2020-01-23] MEDS: PYRIDOXINE 50 MG TAB PO SCH ×2 (07:59→21:25)
[2020-01-23] MEDS: FAMOTIDINE 20 MG TAB PO SCH ×2 (07:59→21:25)
[2020-01-23] MEDS: atenoloL 25 MG TAB PO SCH ×2 (07:59→21:25)
[2020-01-23] MEDS: ENOXAPARIN 40 MG/0.4 ML SYRINGE SQ SCH ×2 (07:59→08:03)
[2020-01-23 08:07] LABS: Platelet Count 90 k/uL (150-450)
[2020-01-23] MEDS ORDERED: AZITHROMYCIN 500 MG TAB PO SCH (09:00)
[2020-01-23] MEDS: ALBUTEROL HFA INHALER INHALATION SCH ×4 (09:30→20:29)
[2020-01-23 09:57] LABS: African American GFR (CKD) 109.1 (60.0-200.0); Albumin 3.4 g/dL (3.80-4.90); Anion Gap 5.2 mmol/L (4.00-12.00); C Reactive Protein 6.6 mg/dL (0.0-0.8); Calcium 7.6 mg/dL (8.7-10.3); Carbon Dioxide 28.8 mmol/L (21.6-31.8); Ferritin 2111.2 ng/mL (10.0-291.0); Globulin 1.7 g/dL (1.6-3.3); Magnesium 1.7 mg/dL (1.5-2.4); Non-African American GFR(CKD) 94.2 (60.0-200.0); Potassium 3.2 mmol/L (3.5-5.5); Total Bilirubin 0.7 mg/dL (0.3-1.2); Total Protein 5.1 g/dL (6.2-8.2)
--- NOTE | 2020-01-23 10:05 | XR ---
EXAMINATION TYPE: XR chest 2V DATE OF EXAM: 01/23/2020 COMPARISON: 01/22/2020 TECHNIQUE: PA and lateral views submitted. HISTORY: Shortness of breath FINDINGS: Mediport catheter seen with reduced inspiration on the right and bilateral areas of infiltrate. No si zable pneumothorax. Tiny pleural effusions not excluded. Heart size stable. Surgical clips in the abd omen. Atherosclerotic change aorta. IMPRESSION: 1. Bilateral areas of infiltrate stable.
[2020-01-23] MEDS ORDERED: REMDESIVIR (EUA) 200 MG in SODIUM CHLORIDE 0.9% 250 ML IVPB ONE (13:00)
[2020-01-23] MEDS ORDERED: POTASSIUM CHLORIDE ER 20 MEQ TAB.ER PO STA (14:12)
[2020-01-23] MEDS ORDERED: MAGNESIUM OXIDE 400 MG TAB PO STA (14:13)
--- NOTE | 2020-01-23 14:18 | P.PN ---
Subjective Progress Note Date: 01/23/20 Patient is feeling better today. Shortness of breath is improving. She continues to have some cough. Denies fevers or chills. Objective - Vital Signs Vital signs: Vital Signs Temp 97.6 F 01/23/20 07:00 Pulse 84 01/23/20 07:00 Resp 18 01/22/20 22:36 BP 131/72 01/23/20 07:00 Pulse Ox 95 01/23/20 07:00 Intake & Output 01/22/20 01/23/20 01/23/20 18:59 06:59 18:59 Weight 101.605 kg 101.605 kg Other: Voiding Method Toilet # Voids 1 # Bowel Movements 1 - Exam General: The patient is awake and alert, in no distress Eye: there is normal conjunctiva bilaterally. Neck: The neck is supple, there is no JVD. Cardiovascular: Normal S1-S2, no S3-S4, no murmurs. Respiratory: Lungs clear to auscultation bilaterally Gastrointestinal: Abdomen is soft, nontender Musculoskeletal: There is no pedal edema. Neurological:. Speech is normal. Skin: Skin is warm and dry - Labs CBC & Chem 7: 01/23/20 06:21 01/23/20 06:21 Labs: Abnormal Lab Results - Last 24 Hours (Table) 01/22/20 01/22/20 01/22/20 Range/Units 13:51 13:51 13:51 WBC 2.4 L (3.8-10.6) k/uL RBC 2.73 L (3.80-5.40) m/uL Hgb 8.7 L (11.4-16.0) gm/dL Hct 25.8 L (34.0-46.0) % RDW 17.2 H (11.5-15.5) % Plt Count 100 L (150-450) k/uL Lymphocytes # 0.4 L (1.0-4.8) k/uL D-Dimer (<0.60) mg/L FEU Sodium 134 L (137-145) mmol/L Potassium (3.5-5.5) mmol/L BUN 18 H (7-17) mg/dL Glucose 117 H (74-99) mg/dL Calcium 8.0 L (8.4-10.2) mg/dL Ferritin 1790.9 H (10.0-291.0) ng/mL AST 76 H (14-36) U/L Lactate Dehydrogenase 1455 H (313-618) U/L C-Reactive Protein 62.7 H (<10.0) mg/L Total Protein (6.2-8.2) g/dL Albumin (3.80-4.90) g/dL Procalcitonin 0.10 H (0.02-0.09) ng/mL 01/23/20 01/23/20 01/23/20 Range/Units 06:21 06:21 06:21 WBC 2.1 L (3.8-10.6) k/uL RBC 2.31 L (3.80-5.40) m/uL Hgb 7.4 L (11.4-16.0) gm/dL Hct 22.2 L (34.0-46.0) % RDW 17.4 H (11.5-15.5) % Plt Count 90 L (150-450) k/uL Lymphocytes # 0.5 L (1.0-4.8) k/uL D-Dimer 0.70 H (<0.60) mg/L FEU Sodium (137-145) mmol/L Potassium 3.2 L (3.5-5.5) mmol/L BUN (7-17) mg/dL Glucose (74-99) mg/dL Calcium 7.6 L (8.4-10.2) mg/dL Ferritin 2111.2 H (10.0-291.0) ng/mL AST 37 H (14-36) U/L Lactate Dehydrogenase 317 H (313-618) U/L C-Reactive Protein 6.6 H (<10.0) mg/L Total Protein 5.1 L (6.2-8.2) g/dL Albumin 3.40 L (3.80-4.90) g/dL Procalcitonin (0.02-0.09) ng/mL Assessment and Plan Assessment: 59-year-old woman with past medical history of hypothyroidism, ovarian cancer on rubraca,, CAD status post PCI 2 last in 2016, hypertension, hyperlipidemia, peripheral neuropathy from chemotherapy, anxiety presented with increasing shortness breath. Patient was diagnosed with Covid 19 seven days ago prior to her presentation. She was evaluated in the ER and admitted to the hospital for further management of her medical problems noted below 1. Acute hypoxemic respiratory failure 2. Covid 19 3. Community acquired pneumonia 4. Ovarian cancer on monoclonal antibody 5. CAD status post PCI 6. Hypertension, essential 7. Hyperlipidemia 8. Anxiety 9. Hypothyroidism 10. Anemia of chronic disease 11. Chronic pancytopenia Plan: - oxygen PRN - droplet precautions - dexamethasone day 04/29 - Remdesivir day / - Vit C/D, Zn, famotidine 20mg BID - pulmonary consult, appreciate recs - ceftriaxone/azithromycin day 2/5 - inflammatory markers: CBC, CMP, Mg, CRP, D-Dimer, Ferritin, LDH, Procalcitonin: Improving - holding rubraca -DVT prophylaxis with subcu Lovenox. Monitor CBC daily -Monitor CBC and transfuse as needed for hemoglobin less than 7 - patient is not on ASA or Plavix per her outpatient oncologist, will continue to hold - continue home atenolol - continue home lipitor - continue home synthroid
--- NOTE | 2020-01-23 17:03 | P.CNPUL ---
History of Present Illness Consult date: 01/23/20 Requesting physician: Dani Pitt Reason for consult: dyspnea, abnormal CXR/CT Chief complaint: Shortness of breath, cough, congestion History of present illness: This a very pleasant 59-year-old female patient with a history of coronary artery disease with previous stent placements to both the RCA in mid LAD, hyperlipidemia, hypothyroidism, stage III ovarian cancer with previous hystere ctomy and debulking and chemotherapy currently on Rubraca, previous bowel resection. She had recently been tested for [place] and 19 and was found to be positive in the outpatient setting. She's had persistent symptoms and presented here to the emergency room yesterday for the same. Chest x-ray shows elevated right hemidiaphragm and acute right basilar and infiltrate/atelectasis. There is a right internal jugular Mediport and position. She is seen today in consultation on the regular medical floor. She is currently awake and alert in no acute distress. Continue O2 saturation in the 90s on 3 L/m per nasal cannula. Currently afebrile. Hemodynamically stable. White count 2.1. Hemoglobin 7.1. Platelet count 90,000. Lymphocyte 0.5. D-dimer 0.70. Sodium 138. Potassium 3.2. Creatinine 0.7. Ferritin 2111, LDH 317, C-reactive protein 6.6 and influenza screen negative. Pro-calcitonin 0.09. She's been initiated on bronchodilators, vitamin C, vitamin D, zinc, Pepcid, Lovenox and ce ftriaxone and azithromycin. Review of Systems REVIEW OF SYSTEMS: CONSTITUTIONAL: Denies any recent significant weight loss or weight gain. EYES: Denies change in vision. EARS, NOSE, MOUTH, THROAT: Denies headaches, denies sore throat. CARDIOVASCULAR: Denies chest pain, palpitations or syncopal episodes. RESPIRATORY: Positive for shortness of breath, cough, congestion no hemoptysis. GASTROINTESTINAL: Denies change in appetite, denies abdominal pain GENITOURINARY: Denies hematuria, denies infections. MUSKULOSKELETAL: Denies pain, denies swelling. INTEGUMENTARY: Denies rash, denies eczema. NEUROLOGICAL: Denies recent memory loss, no recent seizure activity. PSYCHIATRIC: Denies anxiety, denies depression. HEMATOLOGIC/LYMPHATIC: Denies anemia, denies enlarged lymph nodes. Past Medical History Past Medical History: Coronary Artery Disease (CAD), Cancer, Chest Pain / Angina, Hyperlipidemia, Myocardial Infarction ([place]), Pneumonia, Thyroid Disorder Additional Past Medical History / Comment(s): Ovarian Stage III Ca (peritoneal) Dx 02/03 received chemo, had bowel resection and is now on oral chemo. 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 Past Anesthesia/Blood Transfusion Reactions: Previous Problems w/ Anesthesia Additional Past Anesthesia/Blood Transfusion Reaction / Comment(s): states was told previously by dr that anesthesia needed to be dosed to her b/p and not weight. hx of receiving 28 units of blood during cancer tx Date of Last Stent Placement:: 2015 Past Psychological History: Depression Additional Psychological History / Comment(s): Pt resides with her spouse. She is independent. She is retired as a [employer] nurse. Smoking Status: Former smoker Past Alcohol Use History: None Reported Additional Past Alcohol Use History / Comment(s): Pt started smoking in 1972 and quit in 2006 but resumed. She quit again in February 2016. Past Drug Use History: None Reported - Past Family History Father Family Medical History: Cancer Additional Family Medical History / Comment(s): colon cancer Mother Family Medical History: Cancer Additional Family Medical History / Comment(s): ovarian Medications and Allergies Home Medications Medication Instructions Recorded Confirmed Type ALPRAZolam [Xanax] 1 mg PO HS PRN 04/01/14 01/22/20 History Atorvastatin [Lipitor] 40 mg PO HS 04/01/14 01/22/20 History atenoloL [Tenormin] 12.5 mg PO BID 04/01/14 01/22/20 History Nitroglycerin Sl Tabs [Nitrostat] 0.4 mg SUBLINGUAL Q5M PRN #25 tab 02/18/16 01/22/20 Rx Ergocalciferol [Vitamin D2 50,000 unit PO Q14D 08/31/16 01/22/20 History (DRISDOL)] DULoxetine HCL [Cymbalta] 30 mg PO DAILY 12/07/17 01/22/20 History Docusate [Colace] 100 mg PO BID PRN 12/07/17 01/22/20 History Magnesium 250 mg PO Q48H 01/06/20 01/22/20 History Pyridoxine [Vitamin B-6] 150 mg PO BID 01/06/20 01/22/20 History Rucaparib Camsylate [Rubraca] 400 mg PO BID 01/06/20 01/22/20 History Furosemide [Lasix] 40 mg PO Q48H 01/22/20 01/22/20 History Levothyroxine Sodium [Synthroid] 75 mcg PO DAILY 01/22/20 01/22/20 History Allergies Allergy/AdvReac Type Severity Reaction Status Date / Time avocado Allergy Dyspnea Verified 01/22/20 16:58 codeine Allergy Nausea & Verified 01/22/20 16:58 Vomiting latex Allergy Rash/Hives Verified 01/22/20 16:58 prednisone AdvReac dizziness Verified 01/22/20 16:58 prochlorperazine AdvReac Hallucinati Verified 01/22/20 16:58 [From Compazine] ons Physical Exam Vitals: Vital Signs Temp Pulse Pulse Resp BP BP Pulse Ox 01/23/20 15:00 97.6 F 73 121/75 94 L 01/23/20 07:00 97.6 F 84 131/72 95 01/23/20 01:24 98.3 F 75 125/77 91 L 01/22/20 22:36 77 18 01/22/20 20:37 99.9 F H 77 155/75 94 L 01/22/20 19:00 99.8 F H 70 18 120/78 98 01/22/20 17:10 73 18 124/69 98 Intake and Output 01/23/20 01/23/20 01/23/20 06:59 14:59 22:59 Other: # Voids 1 3 # Bowel Movements 1 GENERAL EXAM: Alert, pleasant 59-year-old female patient, on 2 L nasal cannula, comfortable in no apparent distress. HEAD: Normocephalic. EYES: Normal reaction of pupils, equal size. NOSE: Clear with pink turbinates. THROAT: No erythema or exudates. NECK: No masses, no JVD. CHEST: No chest wall deformity. Right Mediport in place LUNGS: Equal air entry with bilateral scattered rhonchi. CVS: S1 and S2 normal with no audible murmur, regular rhythm. ABDOMEN: No hepatosplenomegaly, normal bowel sounds, no guarding or rigidity. SPINE: No scoliosis or deformity SKIN: No rashes CENTRAL NERVOUS SYSTEM: No focal deficits, tone is normal in all 4 extremities. EXTREMITIES: There is no peripheral edema. No clubbing, no cyanosis. Peripheral pulses are intact. Results - Laboratory Findings CBC and BMP: 01/23/20 06:21 01/23/20 06:21 PT/INR, D-dimer PT 9.7 sec (9.0-12.0) 01/23/20 06:21 INR 0.9 (<1.2) 01/23/20 06:21 D-Dimer 0.70 mg/L FEU (<0.60) H 01/23/20 06:21 Abnormal lab findings: Abnormal Labs 01/22/20 01/22/20 01/22/20 13:51 13:51 13:51 WBC 2.4 L RBC 2.73 L Hgb 8.7 L Hct 25.8 L RDW 17.2 H Plt Count 100 L Lymphocytes # 0.4 L D-Dimer Sodium 134 L Potassium BUN 18 H Glucose 117 H Calcium 8.0 L Ferritin 1790.9 H AST 76 H Lactate Dehydrogenase 1455 H C-Reactive Protein 62.7 H Total Protein Albumin Procalcitonin 0.10 H 01/23/20 01/23/20 01/23/20 06:21 06:21 06:21 WBC 2.1 L RBC 2.31 L Hgb 7.4 L Hct 22.2 L RDW 17.4 H Plt Count 90 L Lymphocytes # 0.5 L D-Dimer 0.70 H Sodium Potassium 3.2 L BUN Glucose Calcium 7.6 L Ferritin 2111.2 H AST 37 H Lactate Dehydrogenase 317 H C-Reactive Protein 6.6 H Total Protein 5.1 L Albumin 3.40 L Procalcitonin - Diagnostic Findings Chest x-ray: image reviewed Assessment and Plan Assessment: 1 Acute hypoxic respiratory failure secondary to acute CoVID 19 pneumonitis 2 Febrile illness secondary to above, recovered 3 Increased inflammatory markers secondary to above 4 Ovarian cancer currently on Rubraca 5 Coronary artery disease with previous stent placement 2 6 Hypertension 7 Hyperlipidemia Plan: The patient was seen and evaluated by Dr. Colón Chest x-ray and labs reviewed Initiate Remdesivir Discontinue antibiotics Continue Lovenox, dexamethasone Continue vitamins C and D, zinc, melatonin, Pepcid Repeat chest x-ray in a.m. Titrate FiO2 as tolerated We'll continue to follow I, the cosigning physician, performed a history & physical examination of the patient. Lungs sounds lateral scattered rhonchi. Maintaining good O2 satu rations in the 90s on 2 L/m per nasal canula. I discussed the assessment and plan of care with my nurse practitioner, Latia Gomez. I attest to the above consultation as dictated by her. Time with Patient: Greater than 30
[2020-01-23] MEDS: ATORVASTATIN 40 MG TAB PO SCH (21:25)
[2020-01-23] MEDS: ALPRAZolam 0.5 MG TAB PO PRN (21:25)
[2020-01-24] MEDS: LEVOTHYROXINE 75 MCG TAB PO SCH (06:00)
[2020-01-24 06:08] LABS: Anisocytosis Slight; Basophils % (A) 0 %; Eosinophils % (A) 1 %; HCT 21.8 % (34.0-46.0); HGB 7.4 gm/dL (11.4-16.0); Hypochromasia Slight; Lymphocytes # (A) 0.5 k/uL (1.0-4.8); Lymphocytes % (A) 25 %; MCH 32.2 pg (25.0-35.0); MCHC 33.8 g/dL (31.0-37.0); MCV 95.5 fL (80.0-100.0); Mean Platelet Volume 8.1; Monocytes # (A) 0.1 k/uL (0-1.0); Monocytes % (A) 6 %; Neutrophils # (A) 1.4 k/uL (1.3-7.7); Neutrophils % (A) 66 %; Poikilocytosis Moderate; RBC 2.28 m/uL (3.80-5.40); RDW 16.8 % (11.5-15.5); WBC 2.2 k/uL (3.8-10.6)
[2020-01-24 06:15] LABS: Platelet Count 92 k/uL (150-450)
[2020-01-24 06:18] LABS: D-Dimer 0.82 mg/L FEU (<0.60)
[2020-01-24] MEDS: atenoloL 25 MG TAB PO SCH ×2 (08:01→20:34)
[2020-01-24] MEDS: DEXAMETHASONE SOD PHOSPHATE 10 MG/ML 1 ML VIAL IV SCH (08:06)
[2020-01-24] MEDS: ENOXAPARIN 40 MG/0.4 ML SYRINGE SQ SCH ×2 (08:07→13:12)
[2020-01-24] MEDS: DULoxetine HCL 30 MG CAPSULE.DR PO SCH (08:07)
[2020-01-24] MEDS: ZINC SULFATE 220 MG CAP PO SCH (08:07)
[2020-01-24] MEDS: CHOLECALCIFEROL 400 UNIT TAB PO SCH (08:07)
[2020-01-24] MEDS: PYRIDOXINE 50 MG TAB PO SCH ×2 (08:07→20:35)
[2020-01-24] MEDS: FAMOTIDINE 20 MG TAB PO SCH ×2 (08:07→20:35)
[2020-01-24] MEDS: ASCORBIC ACID 500 MG TAB PO SCH (08:07)
[2020-01-24] MEDS: ALBUTEROL HFA INHALER INHALATION SCH ×4 (08:40→18:50)
[2020-01-24 10:06] LABS: African American GFR (CKD) 109.1 (60.0-200.0); Albumin 3.4 g/dL (3.80-4.90); Anion Gap 7.4 mmol/L (4.00-12.00); C Reactive Protein 5.2 mg/dL (0.0-0.8); Calcium 7.9 mg/dL (8.7-10.3); Carbon Dioxide 26.6 mmol/L (21.6-31.8); Ferritin 1839.9 ng/mL (10.0-291.0); Globulin 1.7 g/dL (1.6-3.3); Magnesium 1.7 mg/dL (1.5-2.4); Non-African American GFR(CKD) 94.2 (60.0-200.0); Potassium 3.4 mmol/L (3.5-5.5); Total Bilirubin 0.6 mg/dL (0.3-1.2); Total Protein 5.1 g/dL (6.2-8.2)
[2020-01-24] MEDS ORDERED: POTASSIUM CHLORIDE 20 MEQ in WATER FOR INJECTION 1 100ML.BAG IVPB STA (11:36)
[2020-01-24] MEDS ORDERED: POTASSIUM CHLORIDE ER 20 MEQ TAB.ER PO STA (11:36)
--- NOTE | 2020-01-24 11:39 | P.PN ---
Subjective Progress Note Date: 01/24/20 Patient is feeling better today. Shortness of breath is improving. She continues to have some cough. Denies fevers or chills. Objective - Vital Signs Vital signs: Vital Signs Temp 98.2 F 01/24/20 07:00 Pulse 61 01/24/20 07:00 Resp 16 01/24/20 07:00 BP 102/52 01/24/20 07:00 Pulse Ox 90 L 01/24/20 07:00 Intake & Output 01/23/20 01/24/20 01/24/20 18:59 06:59 18:59 Intake Total 950 120 Balance 950 120 Intake: Intake, IV Titration 250 Amount Remdesivir (Eua) 100 mg 250 In Sodium Chloride 0.9% 250 ml @ 250 mls/hr IVPB DAILY@1300 [facility] Rx#: [id number] Oral 700 120 Other: Voiding Method Toilet # Voids 3 2 # Bowel Movements 1 - Exam General: The patient is awake and alert, in no distress Eye: there is normal conjunctiva bilaterally. Neck: The neck is supple, there is no JVD. Cardiovascular: Normal S1-S2, no S3-S4, no murmurs. Respiratory: Lungs clear to auscultation bilaterally Gastrointestinal: Abdomen is soft, nontender Musculoskeletal: There is no pedal edema. Neurological:. Speech is normal. Skin: Skin is warm and dry - Labs CBC & Chem 7: 01/24/20 05:55 01/24/20 05:55 Labs: Abnormal Lab Results - Last 24 Hours (Table) 01/24/20 01/24/20 01/24/20 Range/Units 05:55 05:55 05:55 WBC 2.2 L (3.8-10.6) k/uL RBC 2.28 L (3.80-5.40) m/uL Hgb 7.4 L (11.4-16.0) gm/dL Hct 21.8 L (34.0-46.0) % RDW 16.8 H (11.5-15.5) % Plt Count 92 L (150-450) k/uL Lymphocytes # 0.5 L (1.0-4.8) k/uL D-Dimer 0.82 H (<0.60) mg/L FEU Potassium 3.4 L (3.5-5.5) mmol/L Calcium 7.9 L (8.7-10.3) mg/dL Ferritin 1839.9 H (10.0-291.0) ng/mL Lactate Dehydrogenase 321 H (120-246) U/L C-Reactive Protein 5.2 H (0.0-0.8) mg/dL Total Protein 5.1 L (6.2-8.2) g/dL Albumin 3.40 L (3.80-4.90) g/dL Microbiology - Last 24 Hours (Table) 01/22/20 13:51 Blood Culture - Preliminary Blood No Growth after 24 hours Assessment and Plan Assessment: 59-year-old woman with past medical history of hypothyroidism, ovarian cancer on rubraca,, CAD status post PCI 2 last in 2015, hypertension, hyperlipidemia, peripheral neuropathy from chemotherapy, anxiety presented with increasing shortness breath. Patient was diagnosed with Covid 19 seven days ago prior to her presentation. She was evaluated in the ER and admitted to the hospital for further management of her medical problems noted below 1. Acute hypoxemic respiratory failure 2. Covid 19 3. Community acquired pneumonia 4. Ovarian cancer on monoclonal antibody 5. CAD status post PCI 6. Hypertension, essential 7. Hyperlipidemia 8. Anxiety 9. Hypothyroidism 10. Anemia of chronic disease 11. Chronic pancytopenia Plan: - oxygen PRN - droplet precautions - dexamethasone day / - Remdesivir day 2/5 - Vit C/D, Zn, famotidine 20mg BID - pulmonary consult, appreciate recs - ceftriaxone/azithromycin day 2/2 discontinued by Pulm. Normal pre-calcitonin - inflammatory markers: CBC, CMP, Mg, CRP, D-Dimer, Ferritin, LDH, Procalcitonin: Improving - holding rubraca -DVT prophylaxis with subcu Lovenox. Monitor CBC daily -Monitor CBC and transfuse as needed for hemoglobin less than 7 - patient is not on ASA or Plavix per her outpatient oncologist, will continue to hold - continue home atenolol - continue home lipitor - continue home synthroid
[2020-01-24] MEDS: REMDESIVIR (EUA) 100 MG in SODIUM CHLORIDE 0.9% 250 ML IVPB SCH (11:56)
--- NOTE | 2020-01-24 16:58 | P.PN ---
Subjective Progress Note Date: 01/24/20 Principal diagnosis: Acute hypoxemic respiratory failure secondary to CoVID 19 pneumonitis This a very pleasant 59-year-old female patient with a history of coronary artery disease with previous stent placements to both the RCA in mid LAD, hyperlipidemia, hypothyroidism, stage III ovarian cancer with previous hysterectomy and debulking and chemotherapy currently on Rubraca, previous bowel resection. She had recently been tested for [place] and 19 and was found to be positive in the outpatient setting. She's had persistent symptoms and presented here to the emergency room yesterday for the same. Chest x-ray shows elevated right hemidiaphragm and acute right basilar and infiltrate/atelectasis. There is a right internal jugular Mediport and position. She is seen today in consultation on the regular medical floor. She is currently awake and alert in no acute distress. Continue O2 saturation in the 90s on 3 L/m per nasal cannula. Currently afebrile. Hemodynamically stable. White count 2.1. Hemoglobin 7.1. Platelet count 90,000. Lymphocyte 0.5. D-dimer 0.70. Sodium 138. Potassium 3.2. Creatinine 0.7. Ferritin 2111, LDH 317, C-reactive protein 6.6 and influenza screen negative. Pro-calcitonin 0.09. She's been initiated on bronchodilators, vitamin C, vitamin D, zinc, Pepcid, Lovenox and ceftriaxone and azithromycin. The patient was seen today 01/24/2020 in follow-up on the regular medical floor. She is up in a chair at the bedside. Awake and alert in no acute distress. Breathing a bit easier today compared to yesterday. Still dyspneic with minimal exertion. Maintaining O2 saturations in the low 90s on 4 L/m per nasal cannula. She's afebrile. Hemodynamically stable. White count 2.2. Hemoglobin 7.4. Platelet count 92,000. Lymphocytes 0.5. D-dimer 0.82. Sodium 139. Potassium 3.4. Creatinine 0.7. Ferritin level 1839. LDH 321. C-reactive protein 5.2. CoVID 19 screen still pending. She was initiated on Remdesivir yesterday. This is day #2. Remains on Lovenox, dexamethasone, Pepcid, zinc, vitamins C and D. Objective - Vital Signs Vital signs: Vital Signs Temp 98.1 F 01/24/20 15:00 Pulse 69 01/24/20 15:00 Resp 22 01/24/20 15:00 BP 106/61 01/24/20 15:00 Pulse Ox 92 L 01/24/20 15:00 Intake & Output 01/23/20 01/24/20 01/24/20 18:59 06:59 18:59 Intake Total 950 370 Balance 950 370 Intake: IV 250 Remdesivir (Eua) 100 mg 250 In Sodium Chloride 0.9% 250 ml @ 250 mls/hr IVPB DAILY@1300 [facility] Rx#: [id number] Intake, IV Titration 250 Amount Remdesivir (Eua) 100 mg 250 In Sodium Chloride 0.9% 250 ml @ 250 mls/hr IVPB DAILY@1300 [facility] Rx#: [id number] Oral 700 120 Other: Voiding Method Toilet # Voids 3 2 # Bowel Movements 1 - Exam GENERAL EXAM: Alert, pleasant 59-year-old female patient, on 4 L nasal cannula, comfortable in no apparent distress. HEAD: Normocephalic. EYES: Normal reaction of pupils, equal size. NOSE: Clear with pink turbinates. THROAT: No erythema or exudates. NECK: No masses, no JVD. CHEST: No chest wall deformity. Right Mediport in place LUNGS: Equal air entry with bilateral scattered rhonchi. CVS: S1 and S2 normal with no audible murmur, regular rhythm. ABDOMEN: No hepatosplenomegaly, normal bowel sounds, no guarding or rigidity. SPINE: No scoliosis or deformity SKIN: No rashes CENTRAL NERVOUS SYSTEM: No focal deficits, tone is normal in all 4 extremities. EXTREMITIES: There is no peripheral edema. No clubbing, no cyanosis. Peripheral pulses are intact. - Labs CBC & Chem 7: 01/24/20 05:55 01/24/20 05:55 Labs: Abnormal Lab Results - Last 24 Hours (Table) 01/24/20 01/24/20 01/24/20 Range/Units 05:55 05:55 05:55 WBC 2.2 L (3.8-10.6) k/uL RBC 2.28 L (3.80-5.40) m/uL Hgb 7.4 L (11.4-16.0) gm/dL Hct 21.8 L (34.0-46.0) % RDW 16.8 H (11.5-15.5) % Plt Count 92 L (150-450) k/uL Lymphocytes # 0.5 L (1.0-4.8) k/uL D-Dimer 0.82 H (<0.60) mg/L FEU Potassium 3.4 L (3.5-5.5) mmol/L Calcium 7.9 L (8.7-10.3) mg/dL Ferritin 1839.9 H (10.0-291.0) ng/mL Lactate Dehydrogenase 321 H (120-246) U/L C-Reactive Protein 5.2 H (0.0-0.8) mg/dL Total Protein 5.1 L (6.2-8.2) g/dL Albumin 3.40 L (3.80-4.90) g/dL Microbiology - Last 24 Hours (Table) 01/22/20 13:51 Blood Culture - Preliminary Blood No Growth after 48 hours Assessment and Plan Assessment: 1 Acute hypoxic respiratory failure secondary to acute CoVID 19 pneumonitis 2 Febrile illness secondary to above, recovered 3 Increased inflammatory markers secondary to above 4 Ovarian cancer currently on Rubraca 5 Coronary artery disease with previous stent placement 2 6 Hypertension 7 Hyperlipidemia Plan: The patient was seen and evaluated by Dr. Colón Continue Remdesivir Continue Lovenox, dexamethasone Continue vitamins C and D, zinc, Pepcid Repeat chest x-ray in a.m. Titrate FiO2 as tolerated We'll continue to follow I, the cosigning physician, performed a history & physical examination of the patient. Lungs sounds lateral scattered rhonchi. Maintaining good O2 saturations in the 90s on 4 L/m per nasal canula. I discussed the assessment and plan of care with my nurse practitioner, Latia Gomez. I attest to the above note as dictated by her.
[2020-01-24] MEDS: ATORVASTATIN 40 MG TAB PO SCH (20:35)
[2020-01-25] MEDS: ALPRAZolam 0.5 MG TAB PO PRN ×2 (00:17→20:51)
[2020-01-25 02:04] LABS: INR 0.93 (0.90-1.11); Prothrombin Time 10.1 sec (9.9-11.9)
[2020-01-25] MEDS: LEVOTHYROXINE 75 MCG TAB PO SCH (05:30)
[2020-01-25 05:51] LABS: Anisocytosis Slight; Basophils % (A) 1 %; Eosinophils % (A) 2 %; HCT 22.1 % (34.0-46.0); HGB 7.4 gm/dL (11.4-16.0); Hypochromasia Slight; Lymphocytes # (A) 0.6 k/uL (1.0-4.8); Lymphocytes % (A) 25 %; MCH 32.2 pg (25.0-35.0); MCHC 33.5 g/dL (31.0-37.0); Mean Platelet Volume 8.6; Monocytes # (A) 0.1 k/uL (0-1.0); Monocytes % (A) 5 %; Neutrophils # (A) 1.6 k/uL (1.3-7.7); Neutrophils % (A) 65 %; Platelet Count 104 k/uL (150-450); Poikilocytosis Moderate; RDW 16.8 % (11.5-15.5); WBC 2.5 k/uL (3.8-10.6)
[2020-01-25] MEDS: FAMOTIDINE 20 MG TAB PO SCH ×2 (08:14→20:51)
[2020-01-25] MEDS: ASCORBIC ACID 500 MG TAB PO SCH (08:14)
[2020-01-25] MEDS: atenoloL 25 MG TAB PO SCH ×2 (08:14→20:52)
[2020-01-25] MEDS: ZINC SULFATE 220 MG CAP PO SCH (08:14)
[2020-01-25] MEDS: ENOXAPARIN 40 MG/0.4 ML SYRINGE SQ SCH ×2 (08:14→09:38)
[2020-01-25] MEDS: CHOLECALCIFEROL 400 UNIT TAB PO SCH (08:15)
[2020-01-25] MEDS: PYRIDOXINE 50 MG TAB PO SCH ×2 (08:15→20:52)
[2020-01-25] MEDS: dexAMETHasone 2 MG TAB PO SCH (08:15)
[2020-01-25] MEDS: DULoxetine HCL 30 MG CAPSULE.DR PO SCH (08:15)
[2020-01-25] MEDS: ALBUTEROL HFA INHALER INHALATION SCH ×4 (08:31→20:46)
[2020-01-25 09:28] LABS: African American GFR (CKD) 109.1 (60.0-200.0); Albumin 3.4 g/dL (3.80-4.90); Albumin/Globulin Ratio 1.89 (1.60-3.17); Anion Gap 5.7 mmol/L (4.00-12.00); BUN/Creat Ratio 25.71 Ratio (12.00-20.00); C Reactive Protein 2.8 mg/dL (0.0-0.8); Calcium 8.2 mg/dL (8.7-10.3); Carbon Dioxide 25.3 mmol/L (21.6-31.8); Globulin 1.8 g/dL (1.6-3.3); Magnesium 1.6 mg/dL (1.5-2.4); Non-African American GFR(CKD) 94.2 (60.0-200.0); Total Bilirubin 0.6 mg/dL (0.3-1.2); Total Protein 5.2 g/dL (6.2-8.2)
--- NOTE | 2020-01-25 09:54 | XR ---
EXAMINATION TYPE: XR chest 1V portable DATE OF EXAM: 01/25/2020 CLINICAL HISTORY: COVID pneumonia. TECHNIQUE: Portable frontal view of the chest. COMPARISON: 01/23/2020 chest radiograph FINDINGS: Right-sided MediPort. Elevation of the right hemidiaphragm. The cardiomediastinal silhouet te is within normal limits for size. Patchy multifocal airspace opacities bilaterally are increased v ersus 01/23/2020. No pneumothorax seen. The osseous structures are intact. IMPRESSION: Increased patchy multifocal airspace opacities bilaterally versus 01/23/2020, consistent with Covid 19 viral infection.
--- NOTE | 2020-01-25 12:42 | P.PN ---
Subjective Progress Note Date: 01/25/20 Patient is feeling better today. Shortness of breath is improving. She continues to have some cough. Denies fevers or chills. Objective - Vital Signs Vital signs: Vital Signs Temp 97.8 F 01/25/20 07:00 Pulse 66 01/25/20 07:00 Resp 20 01/25/20 08:14 BP 117/70 01/25/20 07:00 Pulse Ox 92 L 01/25/20 08:32 Intake & Output 01/24/20 01/25/20 01/25/20 18:59 06:59 18:59 Intake Total 370 200 Balance 370 200 Intake: IV 250 Remdesivir (Eua) 100 mg 250 In Sodium Chloride 0.9% 250 ml @ 250 mls/hr IVPB DAILY@1300 [facility] Rx#: [id number] Oral 120 200 Other: Voiding Method Bedside Commode # Voids 1 # Bowel Movements 1 - Exam General: The patient is awake and alert, in no distress Eye: there is normal conjunctiva bilaterally. Neck: The neck is supple, there is no JVD. Cardiovascular: Normal S1-S2, no S3-S4, no murmurs. Respiratory: Lungs clear to auscultation bilaterally Gastrointestinal: Abdomen is soft, nontender Musculoskeletal: There is no pedal edema. Neurological:. Speech is normal. Skin: Skin is warm and dry - Labs CBC & Chem 7: 01/25/20 05:30 01/25/20 05:30 Labs: Abnormal Lab Results - Last 24 Hours (Table) 01/25/20 01/25/20 Range/Units 05:30 05:30 WBC 2.5 L (3.8-10.6) k/uL RBC 2.30 L (3.80-5.40) m/uL Hgb 7.4 L (11.4-16.0) gm/dL Hct 22.1 L (34.0-46.0) % RDW 16.8 H (11.5-15.5) % Plt Count 104 L (150-450) k/uL Lymphocytes # 0.6 L (1.0-4.8) k/uL BUN/Creatinine Ratio 25.71 H (12.00-20.00) Ratio Calcium 8.2 L (8.7-10.3) mg/dL C-Reactive Protein 2.8 H (0.0-0.8) mg/dL Total Protein 5.2 L (6.2-8.2) g/dL Albumin 3.40 L (3.80-4.90) g/dL Microbiology - Last 24 Hours (Table) 01/22/20 13:51 Blood Culture - Preliminary Blood No Growth after 48 hours Assessment and Plan Assessment: 59-year-old woman with past medical history of hypothyroidism, ovarian cancer on rubraca,, CAD status post PCI 2 last in 2015, hypertension, hyperlipidemia, peripheral neuropathy from chemotherapy, anxiety presented with increasing shortness breath. Patient was diagnosed with Covid 19 seven days ago prior to her presentation. She was evaluated in the ER and admitted to the hospital for further management of her medical problems noted below 1. Acute hypoxemic respiratory failure 2. Covid 19 3. Community acquired pneumonia 4. Ovarian cancer on monoclonal antibody 5. CAD status post PCI 6. Hypertension, essential 7. Hyperlipidemia 8. Anxiety 9. Hypothyroidism 10. Anemia of chronic disease 11. Chronic pancytopenia Plan: - oxygen PRN - droplet precautions - dexamethasone day 06/27 - Remdesivir day / - Vit C/D, Zn, famotidine 20mg BID - pulmonary consult, appreciate recs - ceftriaxone/azithromycin day 2/2 discontinued by Pulm. Normal pre-calcitonin - inflammatory markers: CBC, CMP, Mg, CRP, D-Dimer, Ferritin, LDH, Procalcitonin: Improving - holding rubraca -DVT prophylaxis with subcu Lovenox. Monitor CBC daily -Monitor CBC and transfuse as needed for hemoglobin less than 7 - patient is not on ASA or Plavix per her outpatient oncologist, will continue to hold - continue home atenolol - continue home lipitor - continue home synthroid
[2020-01-25] MEDS: REMDESIVIR (EUA) 100 MG in SODIUM CHLORIDE 0.9% 250 ML IVPB SCH (14:00)
--- NOTE | 2020-01-25 14:35 | P.PN ---
Subjective Progress Note Date: 01/25/20 Principal diagnosis: Acute hypoxemic respiratory failure secondary to CoVID 19 pneumonitis This a very pleasant 59-year-old female patient with a history of coronary artery disease with previous stent placements to both the RCA in mid LAD, hyperlipidemia, hypothyroidism, stage III ovarian cancer with previous hysterectomy and debulking and chemotherapy currently on Rubraca, previous bowel resection. She had recently been tested for [place] and 19 and was found to be positive in the outpatient setting. She's had persistent symptoms and presented here to the emergency room yesterday for the same. Chest x-ray shows elevated right hemidiaphragm and acute right basilar and infiltrate/atelectasis. There is a right internal jugular Mediport and position. She is seen today in consultation on the regular medical floor. She is currently awake and alert in no acute distress. Continue O2 saturation in the 90s on 3 L/m per nasal cannula. Currently afebrile. Hemodynamically stable. White count 2.1. Hemoglobin 7.1. Platelet count 90,000. Lymphocyte 0.5. D-dimer 0.70. Sodium 138. Potassium 3.2. Creatinine 0.7. Ferritin 2111, LDH 317, C-reactive protein 6.6 and influenza screen negative. Pro-calcitonin 0.09. She's been initiated on bronchodilators, vitamin C, vitamin D, zinc, Pepcid, Lovenox and ceftriaxone and azithromycin. The patient was seen today 01/24/2020 in follow-up on the regular medical floor. She is up in a chair at the bedside. Awake and alert in no acute distress. Breathing a bit easier today compared to yesterday. Still dyspneic with minimal exertion. Maintaining O2 saturations in the low 90s on 4 L/m per nasal cannula. She's afebrile. Hemodynamically stable. White count 2.2. Hemoglobin 7.4. Platelet count 92,000. Lymphocytes 0.5. D-dimer 0.82. Sodium 139. Potassium 3.4. Creatinine 0.7. Ferritin level 1839. LDH 321. C-reactive protein 5.2. CoVID 19 screen still pending. She was initiated on Remdesivir yesterday. This is day #2. Remains on Lovenox, dexamethasone, Pepcid, zinc, vitamins C and D. The patient is seen today 01/25/2020 in follow-up on the regular medical floor. She is awake and alert in no acute distress. Breathing easier today compared to yesterday. No worsening shortness of breath, cough or congestion. Chest x-ray is about the same with no significant worsening or significant improvement. This is day #3 of her Remdesivir. White count 2.5. Hemoglobin 7.4. Platelet count 104,000. Lymphocyte 0.6. Sodium 139. Potassium 4.0. Creatinine 0.7. C-reactive protein 2.8. Objective - Vital Signs Vital signs: Vital Signs Temp 97.8 F 01/25/20 07:00 Pulse 66 01/25/20 07:00 Resp 20 01/25/20 08:14 BP 117/70 01/25/20 07:00 Pulse Ox 92 L 01/25/20 08:32 Intake & Output 01/24/20 01/25/20 01/25/20 18:59 06:59 18:59 Intake Total 370 200 Balance 370 200 Intake: IV 250 Remdesivir (Eua) 100 mg 250 In Sodium Chloride 0.9% 250 ml @ 250 mls/hr IVPB DAILY@1300 [facility] Rx#: [id number] Oral 120 200 Other: Voiding Method Bedside Commode # Voids 1 2 # Bowel Movements 1 - Exam GENERAL EXAM: Alert, pleasant 59-year-old female patient, on 4 L nasal cannula, comfortable in no apparent distress. HEAD: Normocephalic. EYES: Normal reaction of pupils, equal size. NOSE: Clear with pink turbinates. THROAT: No erythema or exudates. NECK: No masses, no JVD. CHEST: No chest wall deformity. Right Mediport in place LUNGS: Equal air entry with bilateral scattered rhonchi. CVS: S1 and S2 normal with no audible murmur, regular rhythm. ABDOMEN: No hepatosplenomegaly, normal bowel sounds, no guarding or rigidity. SPINE: No scoliosis or deformity SKIN: No rashes CENTRAL NERVOUS SYSTEM: No focal deficits, tone is normal in all 4 extremities. EXTREMITIES: There is no peripheral edema. No clubbing, no cyanosis. Peripheral pulses are intact. - Labs CBC & Chem 7: 01/25/20 05:30 01/25/20 05:30 Labs: Abnormal Lab Results - Last 24 Hours (Table) 01/25/20 01/25/20 Range/Units 05:30 05:30 WBC 2.5 L (3.8-10.6) k/uL RBC 2.30 L (3.80-5.40) m/uL Hgb 7.4 L (11.4-16.0) gm/dL Hct 22.1 L (34.0-46.0) % RDW 16.8 H (11.5-15.5) % Plt Count 104 L (150-450) k/uL Lymphocytes # 0.6 L (1.0-4.8) k/uL BUN/Creatinine Ratio 25.71 H (12.00-20.00) Ratio Calcium 8.2 L (8.7-10.3) mg/dL C-Reactive Protein 2.8 H (0.0-0.8) mg/dL Total Protein 5.2 L (6.2-8.2) g/dL Albumin 3.40 L (3.80-4.90) g/dL Microbiology - Last 24 Hours (Table) 01/22/20 13:51 Blood Culture - Preliminary Blood No Growth after 48 hours Assessment and Plan Assessment: 1 Acute hypoxic respiratory failure secondary to acute CoVID 19 pneumonitis 2 Febrile illness secondary to above, recovered 3 Increased inflammatory markers secondary to above 4 Ovarian cancer currently on Rubraca 5 Coronary artery disease with previous stent placement 2 6 Hypertension 7 Hyperlipidemia Plan: The patient was seen and evaluated by Dr. Colón Continue Remdesivir Continue Lovenox, dexamethasone Continue vitamins C and D, zinc, Pepcid Titrate FiO2 as tolerated We'll continue to follow I, the cosigning physician, performed a history & physical examination of the patient. Lungs sounds lateral scattered rhonchi. Maintaining good O2 saturations in the 90s on 4 L/m per nasal canula. I discussed the assessment and plan of care with my nurse practitioner, Latia Gomez. I attest to the above note as dictated by her.
[2020-01-25] MEDS: ATORVASTATIN 40 MG TAB PO SCH (20:52)
[2020-01-26] MEDS: LEVOTHYROXINE 75 MCG TAB PO SCH (05:52)
[2020-01-26] MEDS: ALBUTEROL HFA INHALER INHALATION SCH ×4 (07:40→20:46)
[2020-01-26] MEDS: atenoloL 25 MG TAB PO SCH ×2 (07:47→21:18)
[2020-01-26] MEDS: ASCORBIC ACID 500 MG TAB PO SCH (07:47)
[2020-01-26] MEDS: ENOXAPARIN 40 MG/0.4 ML SYRINGE SQ SCH (07:47)
[2020-01-26] MEDS: dexAMETHasone 2 MG TAB PO SCH (07:48)
[2020-01-26] MEDS: DULoxetine HCL 30 MG CAPSULE.DR PO SCH (07:48)
[2020-01-26] MEDS: FAMOTIDINE 20 MG TAB PO SCH ×2 (07:48→21:18)
[2020-01-26] MEDS: ZINC SULFATE 220 MG CAP PO SCH (07:48)
[2020-01-26] MEDS: PYRIDOXINE 50 MG TAB PO SCH ×2 (07:48→21:18)
[2020-01-26] MEDS: CHOLECALCIFEROL 400 UNIT TAB PO SCH (07:49)
[2020-01-26 09:23] LABS: C Reactive Protein 1.7 mg/dL (0.0-0.8)
[2020-01-26 09:34] LABS: Ferritin 1573.7 ng/mL (10.0-291.0)
[2020-01-26] MEDS ORDERED: FUROSEMIDE 10 MG/ML 2 ML VIAL IV ONE (11:25)
[2020-01-26 12:24] LABS: Anisocytosis Slight; Basophils % (A) 1 %; Eosinophils % (A) 1 %; HCT 21.9 % (34.0-46.0); HGB 7.6 gm/dL (11.4-16.0); Hypochromasia Slight; Lymphocytes # (A) 0.8 k/uL (1.0-4.8); Lymphocytes % (A) 27 %; MCH 32.9 pg (25.0-35.0); MCHC 34.7 g/dL (31.0-37.0); MCV 94.9 fL (80.0-100.0); Mean Platelet Volume 8.8; Monocytes # (A) 0.2 k/uL (0-1.0); Monocytes % (A) 6 %; Neutrophils # (A) 1.8 k/uL (1.3-7.7); Neutrophils % (A) 62 %; Platelet Count 117 k/uL (150-450); Poikilocytosis Moderate; RBC 2.31 m/uL (3.80-5.40); RDW 17.1 % (11.5-15.5)
--- NOTE | 2020-01-26 13:33 | P.PN ---
Subjective Progress Note Date: 01/26/20 Patient's shortness of breath is not improving compared to yesterday. She is still requiring 4 L of oxygen. Patient informed me that she received multiple blood transfusions in the past and she usually get more short of breath when her hemoglobin is low. Repeat hemoglobin this morning was 7.6. Chest x-ray from yesterday showed worsening infiltrates bilaterally Objective - Vital Signs Vital signs: Vital Signs Temp 98.3 F 01/26/20 07:00 Pulse 53 L 01/26/20 07:00 Resp 16 01/26/20 07:00 BP 89/52 01/26/20 07:00 Pulse Ox 93 L 01/26/20 07:00 Intake & Output 01/25/20 01/26/20 01/26/20 18:59 06:59 18:59 Intake Total 700 Balance 700 Intake: Oral 700 Other: Voiding Method Bedside Commode # Voids 2 2 - Exam General: The patient is awake and alert, in no distress Eye: there is normal conjunctiva bilaterally. Neck: The neck is supple, there is no JVD. Cardiovascular: Normal S1-S2, no S3-S4, no murmurs. Respiratory: Lungs clear to auscultation bilaterally Gastrointestinal: Abdomen is soft, nontender Musculoskeletal: There is no pedal edema. Neurological:. Speech is normal. Skin: Skin is warm and dry - Labs CBC & Chem 7: 01/26/20 06:21 01/25/20 05:30 Labs: Abnormal Lab Results - Last 24 Hours (Table) 01/26/20 01/26/20 Range/Units 06:21 06:21 WBC 3.0 L (3.8-10.6) k/uL RBC 2.31 L (3.80-5.40) m/uL Hgb 7.6 L (11.4-16.0) gm/dL Hct 21.9 L (34.0-46.0) % RDW 17.1 H (11.5-15.5) % Plt Count 117 L (150-450) k/uL Lymphocytes # 0.8 L (1.0-4.8) k/uL Ferritin 1573.7 H (10.0-291.0) ng/mL Lactate Dehydrogenase 279 H (120-246) U/L C-Reactive Protein 1.7 H (0.0-0.8) mg/dL Microbiology - Last 24 Hours (Table) 01/22/20 13:51 Blood Culture - Preliminary Blood No Growth after 72 hours Assessment and Plan Assessment: 59-year-old woman with past medical history of hypothyroidism, ovarian cancer on rubraca,, CAD status post PCI 2 last in 2015, hypertension, hyperlipidemia, peripheral neuropathy from chemotherapy, anxiety presented with increasing shortness breath. Patient was diagnosed with Covid 19 seven days ago prior to her presentation. She was evaluated in the ER and admitted to the hospital for further management of her medical problems noted below 1. Acute hypoxemic respiratory failure 2. Covid 19 3. Community acquired pneumonia 4. Ovarian cancer on monoclonal antibody 5. CAD status post PCI 6. Hypertension, essential 7. Hyperlipidemia 8. Anxiety 9. Hypothyroidism 10. Anemia of chronic disease with worsening hemoglobin 11 and symptomatic anemia during this admission 11. Chronic pancytopenia Plan: - oxygen PRN - droplet precautions - dexamethasone day 07/27 - Remdesivir day 4/ - Vit C/D, Zn, famotidine 20mg BID - pulmonary consult, appreciate recs - ceftriaxone/azithromycin day / discontinued by Pulm. Normal pre-calcitonin - inflammatory markers: CBC, CMP, Mg, CRP, D-Dimer, Ferritin, LDH, Procalcitonin: Improving - holding rubraca - Transfuse 1 unit of packed RBC for hemoglobin of 7.6 and worsening symptomatic anemia and increased oxygen requirement -IV Lasix 20 mg once a day and 40 mg IV in the morning starting tomorrow -Repeat chest x-ray in the morning -DVT prophylaxis with subcu Lovenox. Monitor CBC daily - patient is not on ASA or Plavix per her outpatient oncologist, will continue to hold - continue home atenolol - continue home lipitor - continue home synthroid
[2020-01-26] MEDS: REMDESIVIR (EUA) 100 MG in SODIUM CHLORIDE 0.9% 250 ML IVPB SCH (14:22)
--- NOTE | 2020-01-26 15:35 | P.PN ---
Subjective Progress Note Date: 01/26/20 Principal diagnosis: Acute hypoxemic respiratory failure secondary to CoVID 19 pneumonitis This a very pleasant 59-year-old female patient with a history of coronary artery disease with previous stent placements to both the RCA in mid LAD, hyperlipidemia, hypothyroidism, stage III ovarian cancer with previous hysterectomy and debulking and chemotherapy currently on Rubraca, previous bowel resection. She had recently been tested for [place] and 19 and was found to be positive in the outpatient setting. She's had persistent symptoms and presented here to the emergency room yesterday for the same. Chest x-ray shows elevated right hemidiaphragm and acute right basilar and infiltrate/atelectasis. There is a right internal jugular Mediport and position. She is seen today in consultation on the regular medical floor. She is currently awake and alert in no acute distress. Continue O2 saturation in the 90s on 3 L/m per nasal cannula. Currently afebrile. Hemodynamically stable. White count 2.1. Hemoglobin 7.1. Platelet count 90,000. Lymphocyte 0.5. D-dimer 0.70. Sodium 138. Potassium 3.2. Creatinine 0.7. Ferritin 2111, LDH 317, C-reactive protein 6.6 and influenza screen negative. Pro-calcitonin 0.09. She's been initiated on bronchodilators, vitamin C, vitamin D, zinc, Pepcid, Lovenox and ceftriaxone and azithromycin. The patient was seen today 01/24/2020 in follow-up on the regular medical floor. She is up in a chair at the bedside. Awake and alert in no acute distress. Breathing a bit easier today compared to yesterday. Still dyspneic with minimal exertion. Maintaining O2 saturations in the low 90s on 4 L/m per nasal cannula. She's afebrile. Hemodynamically stable. White count 2.2. Hemoglobin 7.4. Platelet count 92,000. Lymphocytes 0.5. D-dimer 0.82. Sodium 139. Potassium 3.4. Creatinine 0.7. Ferritin level 1839. LDH 321. C-reactive protein 5.2. CoVID 19 screen still pending. She was initiated on Remdesivir yesterday. This is day #2. Remains on Lovenox, dexamethasone, Pepcid, zinc, vitamins C and D. The patient is seen today 01/25/2020 in follow-up on the regular medical floor. She is awake and alert in no acute distress. Breathing easier today compared to yesterday. No worsening shortness of breath, cough or congestion. Chest x-ray is about the same with no significant worsening or significant improvement. This is day #3 of her Remdesivir. White count 2.5. Hemoglobin 7.4. Platelet count 104,000. Lymphocyte 0.6. Sodium 139. Potassium 4.0. Creatinine 0.7. C-reactive protein 2.8. The patient is seen today 01/26/2020 in follow-up on the regular medical floor. She is currently resting comfortably in bed. Awake and alert in no acute distress. Continues to require 4 L/m per nasal cannula to maintain O2 saturation in the 90s. She's afebrile. Bradycardic. Continues with a dry nonproductive cough. This is day #4 of her Remdesivir. Remains on Lovenox, dexamethasone, Pepcid, zinc, vitamins C and D. Objective - Vital Signs Vital signs: Vital Signs Temp 98.0 F 01/26/20 15:00 Pulse 54 L 01/26/20 15:00 Resp 17 01/26/20 15:00 BP 109/68 01/26/20 15:00 Pulse Ox 93 L 01/26/20 15:00 Intake & Output 01/25/20 01/26/20 01/26/20 18:59 06:59 18:59 Intake Total 700 Balance 700 Intake: Oral 700 Other: Voiding Method Bedside Commode # Voids 2 2 3 # Bowel Movements 1 - Exam GENERAL EXAM: Alert, pleasant 59-year-old female patient, on 4 L nasal cannula, comfortable in no apparent distress. HEAD: Normocephalic. EYES: Normal reaction of pupils, equal size. NOSE: Clear with pink turbinates. THROAT: No erythema or exudates. NECK: No masses, no JVD. CHEST: No chest wall deformity. Right Mediport in place LUNGS: Equal air entry with bilateral scattered rhonchi. CVS: S1 and S2 normal with no audible murmur, regular rhythm. ABDOMEN: No hepatosplenomegaly, normal bowel sounds, no guarding or rigidity. SPINE: No scoliosis or deformity SKIN: No rashes CENTRAL NERVOUS SYSTEM: No focal deficits, tone is normal in all 4 extremities. EXTREMITIES: There is no peripheral edema. No clubbing, no cyanosis. Peripheral pulses are intact. - Labs CBC & Chem 7: 01/26/20 06:21 01/25/20 05:30 Labs: Abnormal Lab Results - Last 24 Hours (Table) 01/26/20 01/26/20 Range/Units 06:21 06:21 WBC 3.0 L (3.8-10.6) k/uL RBC 2.31 L (3.80-5.40) m/uL Hgb 7.6 L (11.4-16.0) gm/dL Hct 21.9 L (34.0-46.0) % RDW 17.1 H (11.5-15.5) % Plt Count 117 L (150-450) k/uL Lymphocytes # 0.8 L (1.0-4.8) k/uL Ferritin 1573.7 H (10.0-291.0) ng/mL Lactate Dehydrogenase 279 H (120-246) U/L C-Reactive Protein 1.7 H (0.0-0.8) mg/dL Microbiology - Last 24 Hours (Table) 01/22/20 13:51 Blood Culture - Preliminary Blood No Growth after 72 hours Assessment and Plan Assessment: 1 Acute hypoxic respiratory failure secondary to acute CoVID 19 pneumonitis 2 Febrile illness secondary to above, recovered 3 Increased inflammatory markers secondary to above 4 Ovarian cancer currently on Rubraca 5 Coronary artery disease with previous stent placement 2 6 Hypertension 7 Hyperlipidemia Plan: The patient was seen and evaluated by Dr. Katarzyna Multani Repeat chest x-ray in a.m. Titrate FiO2 as tolerated We'll continue to follow I, the cosigning physician, performed a history & physical examination of the patient. Lungs sounds lateral scattered rhonchi. Maintaining good O2 saturations in the 90s on 4 L/m per nasal canula. I discussed the assessment and plan of care with my nurse practitioner, Latia Gomez. I attest to the above note as dictated by her.
[2020-01-26] MEDS: ATORVASTATIN 40 MG TAB PO SCH (21:18)
[2020-01-27] MEDS: LEVOTHYROXINE 75 MCG TAB PO SCH (05:19)
[2020-01-27 06:48] LABS: Anisocytosis Slight; Basophils % (A) 0 %; Eosinophils % (A) 0 %; Lymphocytes % (A) 28 %; MCH 30.2 pg (25.0-35.0); MCHC 32.2 g/dL (31.0-37.0); MCV 93.7 fL (80.0-100.0); Mean Platelet Volume 8.7; Monocytes # (A) 0.3 k/uL (0-1.0); Monocytes % (A) 7 %; Neutrophils # (A) 2.3 k/uL (1.3-7.7); Neutrophils % (A) 63 %; Platelet Count 124 k/uL (150-450); Poikilocytosis Moderate; RBC 2.98 m/uL (3.80-5.40); RDW 17.3 % (11.5-15.5); WBC 3.6 k/uL (3.8-10.6)
[2020-01-27] MEDS: ALBUTEROL HFA INHALER INHALATION SCH ×4 (08:04→19:43)
--- NOTE | 2020-01-27 08:48 | XR ---
EXAMINATION TYPE: XR chest 1V portable DATE OF EXAM: 01/27/2020 COMPARISON: Prior chest x-ray 01/25/2020 HISTORY: Covid pneumonia TECHNIQUE: Single frontal view of the chest is obtained. FINDINGS: There may be some improved aeration as compared to prior exam. No evident pneumothorax. A[place]en ng volumes are low. Port-A-Cath is stable. Heart is obscured. IMPRESSION: There may be some improvement in aeration.
[2020-01-27] MEDS: atenoloL 25 MG TAB PO SCH (09:32)
[2020-01-27] MEDS: dexAMETHasone 2 MG TAB PO SCH (09:51)
[2020-01-27] MEDS: FAMOTIDINE 20 MG TAB PO SCH ×2 (09:51→21:44)
[2020-01-27] MEDS: DULoxetine HCL 30 MG CAPSULE.DR PO SCH (09:51)
[2020-01-27] MEDS: PYRIDOXINE 50 MG TAB PO SCH ×2 (09:51→21:44)
[2020-01-27] MEDS: CHOLECALCIFEROL 400 UNIT TAB PO SCH (09:51)
[2020-01-27] MEDS: ZINC SULFATE 220 MG CAP PO SCH (09:51)
[2020-01-27] MEDS: FUROSEMIDE 10 MG/ML 4 ML VIAL IV SCH (09:54)
[2020-01-27] MEDS: ENOXAPARIN 40 MG/0.4 ML SYRINGE SQ SCH (09:54)
[2020-01-27] MEDS: ASCORBIC ACID 500 MG TAB PO SCH (09:54)
--- NOTE | 2020-01-27 09:59 | P.PN ---
Subjective Progress Note Date: 01/27/20 Patient is feeling slightly better today. Shortness of breath has improved. Patient feels that the blood transfusion yesterday may have helped with her symptoms of shortness of breath. She is still requiring 3-4 L of oxygen at rest. She denies any cough or fever. Objective - Vital Signs Vital signs: Vital Signs Temp 98.0 F 01/27/20 07:00 Pulse 40 L 01/27/20 07:00 Resp 18 01/27/20 07:00 BP 120/58 01/27/20 07:00 Pulse Ox 94 L 01/27/20 07:00 Intake & Output 01/26/20 01/27/20 01/27/20 18:59 06:59 18:59 Intake Total 1160 Balance 1160 Intake: Oral 850 Blood Product 310 Rc As-1 Unit 310 [id number] Other: Voiding Method Bedside Commode # Voids 3 2 # Bowel Movements 1 1 - Exam General: The patient is awake and alert, in no distress Eye: there is normal conjunctiva bilaterally. Neck: The neck is supple, there is no JVD. Cardiovascular: Normal S1-S2, no S3-S4, no murmurs. Respiratory: Lungs clear to auscultation bilaterally Gastrointestinal: Abdomen is soft, nontender Musculoskeletal: There is no pedal edema. Neurological:. Speech is normal. Skin: Skin is warm and dry - Labs CBC & Chem 7: 01/27/20 05:56 01/25/20 05:30 Labs: Abnormal Lab Results - Last 24 Hours (Table) 01/26/20 01/26/20 01/27/20 Range/Units 06:21 16:21 05:56 WBC 3.0 L 3.6 L (3.8-10.6) k/uL RBC 2.31 L 2.98 L (3.80-5.40) m/uL Hgb 7.6 L 9.0 L (11.4-16.0) gm/dL Hct 21.9 L 28.0 L (34.0-46.0) % RDW 17.1 H 17.3 H (11.5-15.5) % Plt Count 117 L 124 L (150-450) k/uL Lymphocytes # 0.8 L (1.0-4.8) k/uL Crossmatch See Detail Microbiology - Last 24 Hours (Table) 01/22/20 13:51 Blood Culture - Preliminary Blood No Growth after 96 hours Assessment and Plan Assessment: 59-year-old woman with past medical history of hypothyroidism, ovarian cancer on rubraca,, CAD status post PCI 2 last in 2015, hypertension, hyperlipidemia, peripheral neuropathy from chemotherapy, anxiety presented with increasing shortness breath. Patient was diagnosed with Covid 19 seven days ago prior to her presentation. She was evaluated in the ER and admitted to the hospital for further management of her medical problems noted below 1. Acute hypoxemic respiratory failure 2. Covid 19 3. Community acquired pneumonia 4. Ovarian cancer on monoclonal antibody 5. CAD status post PCI 6. Hypertension, essential 7. Hyperlipidemia 8. Anxiety 9. Hypothyroidism 10. Anemia of chronic disease with worsening hemoglobin and symptomatic anemia during this admission 11. Chronic pancytopenia Plan: - oxygen PRN - droplet precautions - dexamethasone day 08/27 - Remdesivir day 07/22 - Vit C/D, Zn, famotidine 20mg BID - pulmonary consult, appreciate recs - ceftriaxone/azithromycin day 04/21 discontinued by Pulm. Normal pre-calcitonin - inflammatory markers: CBC, CMP, Mg, CRP, D-Dimer, Ferritin, LDH, Procalcitonin: Improving - holding rubraca - Transfused 1 unit of packed RBC on 01/25 for hemoglobin of 7.6 and worsening symptomatic anemia and increased oxygen requirement -IV Lasix 40 mg once a day started yesterday -Repeat chest x-ray showed some improvement in aeration -We'll continue to monitor and try to wean the patient oxygen requirement down to 2 L and now that she can go home on oxygen tomorrow. Clinic with the patient on 2 L of oxygen this morning she desaturated to 88%. I put her back up to 3 L. We will continue to monitor throughout the day. -DVT prophylaxis with subcu Lovenox. Monitor CBC daily - patient is not on ASA or Plavix per her outpatient oncologist, will continue to hold - continue home atenolol - continue home lipitor - continue home synthroid
[2020-01-27] MEDS: REMDESIVIR (EUA) 100 MG in SODIUM CHLORIDE 0.9% 250 ML IVPB SCH (14:23)
--- NOTE | 2020-01-27 16:56 | P.PN ---
Subjective Progress Note Date: 01/27/20 Principal diagnosis: Acute hypoxic rest or a failure secondary to COVID 19 pneumonitis This a very pleasant 59-year-old female patient with a history of coronary artery disease with previous stent placements to both the RCA in mid LAD, hyperlipidemia, hypothyroidism, stage III ovarian cancer with previous hysterectomy and debulking and chemotherapy currently on Rubraca, previous bowel resection. She had recently been tested for [place] and 19 and was found to be positive in the outpatient setting. She's had persistent symptoms and presented here to the emergency room yesterday for the same. Chest x-ray shows elevated right hemidiaphragm and acute right basilar and infiltrate/atelectasis. There is a right internal jugular Mediport and position. She is seen today in co nsultation on the regular medical floor. She is currently awake and alert in no acute distress. Continue O2 saturation in the 90s on 3 L/m per nasal cannula. Currently afebrile. Hemodynamically stable. White count 2.1. Hemoglobin 7.1. Platelet count 90,000. Lymphocyte 0.5. D-dimer 0.70. Sodium 138. Potassium 3.2. Creatinine 0.7. Ferritin 2111, LDH 317, C-reactive protein 6.6 and influ kimberly screen negative. Pro-calcitonin 0.09. She's been initiated on bronchodilators, vitamin C, vitamin D, zinc, Pepcid, Lovenox and ceftriaxone and azithromycin. The patient was seen today 01/24/2020 in follow-up on the regular medical floor. She is up in a chair at the bedside. Awake and alert in no acute distress. Breathing a bit easier today compared to yesterday. Still dyspneic with minimal exertion. Maintaining O2 saturations in the low 90s on 4 L/m per nasal cannula. She's afebrile. Hemodynamically stable. White count 2.2. Hemoglobin 7.4. Platelet count 92,000. Lymphocytes 0.5. D-dimer 0.82. Sodium 139. Potassium 3.4. Creatinine 0.7. Ferritin level 1839. LDH 321. C-reactive protein 5.2. CoVID 19 screen still pending. She was initiated on Remdesivir yesterday. This is day #2. Remains on Lovenox, dexamethasone, Pepcid, zinc, vitamins C and D. The patient is seen today 01/25/2020 in follow-up on the regular medical floor. She is awake and alert in no acute distress. Breathing easier today compared to yesterday. No worsening shortness of breath, cough or congestion. Chest x-ray is about the same with no significant worsening or significant improvement. This is day #3 of her Remdesivir. White count 2.5. Hemoglobin 7.4. Platelet count 104,000. Lymphocyte 0.6. Sodium 139. Potassium 4.0. Creatinine 0.7. C-reactive protein 2.8. The patient is seen today 01/26/2020 in follow-up on the regular medical floor. She is currently resting comfortably in bed. Awake and alert in no acute distress. Continues to require 4 L/m per nasal cannula to maintain O2 saturation in the 90s. She's afebrile. Bradycardic. Continues with a dry nonproductive cough. This is day #4 of her Remdesivir. Remains on Lovenox, dexamethasone, Pepcid, zinc, vitamins C and D. On 01/27/2020 patient seen in follow-up on a general medical surgical floor. She is awake and alert, in no acute distress, she remains on 4 L of oxygen pulse ox is 94%, vital signs have been stable, she's been afebrile, today which she will complete her last dose of Remdesivir, no worsening dyspnea, shortness of breath has improved. No cough, no fever or chills. No nausea vomiting or diarrhea. Patient received a unit of packed red blood cells yesterday. todays hemoglobin is 9.0. Objective - Vital Signs Vital signs: Vital Signs Temp 98.7 F 01/27/20 14:51 Pulse 55 L 01/27/20 14:51 Resp 16 01/27/20 14:51 BP 104/67 01/27/20 14:51 Pulse Ox 92 L 01/27/20 14:51 Intake & Output 01/26/20 01/27/20 01/27/20 18:59 06:59 18:59 Intake Total 1160 Balance 1160 Intake: Oral 850 Blood Product 310 Rc As-1 Unit 310 [id number] Other: Voiding Method Bedside Commode # Voids 3 2 2 # Bowel Movements 1 1 - Exam GENERAL EXAM: Alert, very pleasant 59-year-old white female, on 4 L of oxygen pulse ox 94%, comfortable in no apparent distress. HEAD: Normocephalic/atraumatic. EYES: Normal reaction of pupils, equal size. Conjunctiva pink, sclera white. NOSE: Clear with pink turbinates. THROAT: No erythema or exudates. NECK: No masses, no JVD, no thyroid enlargement, no adenopathy. CHEST: No chest wall deformity. Symmetrical expansion. LUNGS: Equal air entry with no crackles, wheeze, rhonchi or dullness. CVS: Regular rate and rhythm, normal S1 and S2, no gallops, no murmurs, no rubs ABDOMEN: Soft, nontender. No hepatosplenomegaly, normal bowel sounds, no guarding or rigidity. EXTREMITIES: No clubbing, no edema, no cyanosis, 2+ pulses and upper and lower extremities. MUSCULOSKELETAL: Muscle strength and tone normal. SPINE: No scoliosis or deformity SKIN: No rashes CENTRAL NERVOUS SYSTEM: Alert and oriented -3. No focal deficits, tone is normal in all 4 extremities. PSYCHIATRIC: Alert and oriented -3. Appropriate affect. Intact judgment and insight. - Labs CBC & Chem 7: 01/27/20 05:56 01/25/20 05:30 Labs: Abnormal Lab Results - Last 24 Hours (Table) 01/26/20 01/27/20 Range/Units 16:21 05:56 WBC 3.6 L (3.8-10.6) k/uL RBC 2.98 L (3.80-5.40) m/uL Hgb 9.0 L (11.4-16.0) gm/dL Hct 28.0 L (34.0-46.0) % RDW 17.3 H (11.5-15.5) % Plt Count 124 L (150-450) k/uL Crossmatch See Detail Microbiology - Last 24 Hours (Table) 01/22/20 13:51 Blood Culture - Preliminary Blood No Growth after 120 hours Assessment and Plan Plan: Assessment: 1 Acute hypoxic respiratory failure secondary to acute CoVID 19 pneumonitis 2 Febrile illness secondary to above, recovered 3 Increased inflammatory markers secondary to above 4 Ovarian cancer currently on Rubraca 5 Coronary artery disease with previous stent placement 2 6 Hypertension 7 Hyperlipidemia Plan: Today's chest x-ray reviewed showing some improvement in aeration bilaterally, patient will finish her Remdesivir today, continue with oral Decadron, Lovenox, Pepcid. Weaning FiO2, inflammatory markers are improving, no fever or chills, she can be considered for discharge home if she continues to improve in the next 24 hours I performed a history & physical examination of the patient and discussed their management with my nurse practitioner, Kelli Castillo. I reviewed the nurse practitioner's note and agree with the documented findings and plan of care. Lung sounds are positive for diminished breath sounds. The findings and the impression was discussed with the patient. I attest to the documentation by the nurse practitioner. Time with Patient: Less than 30
[2020-01-27] MEDS: ATORVASTATIN 40 MG TAB PO SCH (21:44)
[2020-01-27] MEDS: ALPRAZolam 0.5 MG TAB PO PRN (23:07)
[2020-01-28] MEDS: LEVOTHYROXINE 75 MCG TAB PO SCH (05:12)
[2020-01-28 06:40] LABS: Anisocytosis Slight; Basophils % (A) 0 %; Eosinophils % (A) 1 %; HGB 9.4 gm/dL (11.4-16.0); Lymphocytes % (A) 24 %; MCH 31.7 pg (25.0-35.0); MCHC 33.6 g/dL (31.0-37.0); MCV 94.1 fL (80.0-100.0); Mean Platelet Volume 7.8; Monocytes # (A) 0.3 k/uL (0-1.0); Monocytes % (A) 6 %; Neutrophils # (A) 2.7 k/uL (1.3-7.7); Neutrophils % (A) 67 %; Platelet Count 131 k/uL (150-450); Poikilocytosis Moderate; RBC 2.98 m/uL (3.80-5.40); RDW 17.8 % (11.5-15.5)
[2020-01-28 07:24] VITALS: BP 120/72; PULSE 67; RESP 17; TEMP 98
[2020-01-28] MEDS: FUROSEMIDE 10 MG/ML 4 ML VIAL IV SCH (08:56)
[2020-01-28] MEDS: FAMOTIDINE 20 MG TAB PO SCH (09:02)
[2020-01-28] MEDS: ENOXAPARIN 40 MG/0.4 ML SYRINGE SQ SCH (09:02)
[2020-01-28] MEDS: ASCORBIC ACID 500 MG TAB PO SCH (09:02)
[2020-01-28] MEDS: PYRIDOXINE 50 MG TAB PO SCH (09:03)
[2020-01-28] MEDS: dexAMETHasone 2 MG TAB PO SCH (09:03)
[2020-01-28] MEDS: CHOLECALCIFEROL 400 UNIT TAB PO SCH (09:03)
[2020-01-28] MEDS: ZINC SULFATE 220 MG CAP PO SCH (09:03)
[2020-01-28] MEDS: DULoxetine HCL 30 MG CAPSULE.DR PO SCH (09:03)
[2020-01-28 09:27] LABS: African American GFR (CKD) 92.9 (60.0-200.0); Anion Gap 8.6 mmol/L (4.00-12.00); Calcium 8.6 mg/dL (8.7-10.3); Carbon Dioxide 27.4 mmol/L (21.6-31.8); Magnesium 1.5 mg/dL (1.5-2.4); Non-African American GFR(CKD) 80.1 (60.0-200.0); Potassium 3.6 mmol/L (3.5-5.5)
[2020-01-28] MEDS: ALBUTEROL HFA INHALER INHALATION SCH (11:15)
--- NOTE | 2020-01-28 16:20 | P.PN ---
Subjective Progress Note Date: 01/28/20 Principal diagnosis: Acute hypoxic rest or a failure secondary to COVID 19 pneumonitis This a very pleasant 59-year-old female patient with a history of coronary artery disease with previous stent placements to both the RCA in mid LAD, hyperlipidemia, hypothyroidism, stage III ovarian cancer with previous hysterectomy and debulking and chemotherapy currently on Rubraca, previous bowel resection. She had recently been tested for [place] and 19 and was found to be positive in the outpatient setting. She's had persistent symptoms and presented here to the emergency room yesterday for the same. Chest x-ray shows elevated right hemidiaphragm and acute right basilar and infiltrate/atelectasis. There is a right internal jugular Mediport and position. She is seen today in co nsultation on the regular medical floor. She is currently awake and alert in no acute distress. Continue O2 saturation in the 90s on 3 L/m per nasal cannula. Currently afebrile. Hemodynamically stable. White count 2.1. Hemoglobin 7.1. Platelet count 90,000. Lymphocyte 0.5. D-dimer 0.70. Sodium 138. Potassium 3.2. Creatinine 0.7. Ferritin 2111, LDH 317, C-reactive protein 6.6 and influ kimberly screen negative. Pro-calcitonin 0.09. She's been initiated on bronchodilators, vitamin C, vitamin D, zinc, Pepcid, Lovenox and ceftriaxone and azithromycin. The patient was seen today 01/24/2020 in follow-up on the regular medical floor. She is up in a chair at the bedside. Awake and alert in no acute distress. Breathing a bit easier today compared to yesterday. Still dyspneic with minimal exertion. Maintaining O2 saturations in the low 90s on 4 L/m per nasal cannula. She's afebrile. Hemodynamically stable. White count 2.2. Hemoglobin 7.4. Platelet count 92,000. Lymphocytes 0.5. D-dimer 0.82. Sodium 139. Potassium 3.4. Creatinine 0.7. Ferritin level 1839. LDH 321. C-reactive protein 5.2. CoVID 19 screen still pending. She was initiated on Remdesivir yesterday. This is day #2. Remains on Lovenox, dexamethasone, Pepcid, zinc, vitamins C and D. The patient is seen today 01/25/2020 in follow-up on the regular medical floor. She is awake and alert in no acute distress. Breathing easier today compared to yesterday. No worsening shortness of breath, cough or congestion. Chest x-ray is about the same with no significant worsening or significant improvement. This is day #3 of her Remdesivir. White count 2.5. Hemoglobin 7.4. Platelet count 104,000. Lymphocyte 0.6. Sodium 139. Potassium 4.0. Creatinine 0.7. C-reactive protein 2.8. The patient is seen today 01/26/2020 in follow-up on the regular medical floor. She is currently resting comfortably in bed. Awake and alert in no acute distress. Continues to require 4 L/m per nasal cannula to maintain O2 saturation in the 90s. She's afebrile. Bradycardic. Continues with a dry nonproductive cough. This is day #4 of her Remdesivir. Remains on Lovenox, dexamethasone, Pepcid, zinc, vitamins C and D. On 01/27/2020 patient seen in follow-up on a general medical surgical floor. She is awake and alert, in no acute distress, she remains on 4 L of oxygen pulse ox is 94%, vital signs have been stable, she's been afebrile, today which she will complete her last dose of Remdesivir, no worsening dyspnea, shortness of breath has improved. No cough, no fever or chills. No nausea vomiting or diarrhea. Patient received a unit of packed red blood cells yesterday. todays hemoglobin is 9.0. On 01/28/2020 patient seen in follow-up on a general medical surgical floor, continues to improve, no acute events overnight, no fever, no worsening dyspnea, room air pulse ox was 88%, and patient does qualify for home oxygen, some mild exertional dyspnea, overall her breathing has improved. She has completed Remdesivir. No nausea vomiting, no worsening dyspnea, no cough, no chest pain. Objective - Vital Signs Vital signs: Vital Signs Temp 98.0 F 01/28/20 07:00 Pulse 67 01/28/20 07:00 Resp 17 01/28/20 07:00 BP 120/72 01/28/20 07:00 Pulse Ox 88 L 01/28/20 09:44 Intake & Output 01/27/20 01/28/20 01/28/20 18:59 06:59 18:59 Other: # Voids 2 1 - Exam GENERAL EXAM: Alert, very pleasant 59-year-old white female, on 3 L of oxygen pulse ox 95%, comfortable in no apparent distress. HEAD: Normocephalic/atraumatic. EYES: Normal reaction of pupils, equal size. Conjunctiva pink, sclera white. NOSE: Clear with pink turbinates. THROAT: No erythema or exudates. NECK: No masses, no JVD, no thyroid enlargement, no adenopathy. CHEST: No chest wall deformity. Symmetrical expansion. LUNGS: Equal air entry with no crackles, wheeze, rhonchi or dullness. CVS: Regular rate and rhythm, normal S1 and S2, no gallops, no murmurs, no rubs ABDOMEN: Soft, nontender. No hepatosplenomegaly, normal bowel sounds, no guarding or rigidity. EXTREMITIES: No clubbing, no edema, no cyanosis, 2+ pulses and upper and lower extremities. MUSCULOSKELETAL: Muscle strength and tone normal. SPINE: No scoliosis or deformity SKIN: No rashes CENTRAL NERVOUS SYSTEM: Alert and oriented -3. No focal deficits, tone is normal in all 4 extremities. PSYCHIATRIC: Alert and oriented -3. Appropriate affect. Intact judgment and insight. - Labs CBC & Chem 7: 01/28/20 05:59 01/28/20 05:59 Labs: Abnormal Lab Results - Last 24 Hours (Table) 01/28/20 01/28/20 Range/Units 05:59 05:59 RBC 2.98 L (3.80-5.40) m/uL Hgb 9.4 L (11.4-16.0) gm/dL Hct 28.0 L (34.0-46.0) % RDW 17.8 H (11.5-15.5) % Plt Count 131 L (150-450) k/uL BUN/Creatinine Ratio 30.00 H (12.00-20.00) Ratio Calcium 8.6 L (8.7-10.3) mg/dL Microbiology - Last 24 Hours (Table) 01/22/20 13:51 Blood Culture - Final Blood No Growth after 144 hours Assessment and Plan Plan: Assessment: 1 Acute hypoxic respiratory failure secondary to acute CoVID 19 pneumonitis 2 Febrile illness secondary to above, recovered 3 Increased inflammatory markers secondary to above 4 Ovarian cancer currently on Rubraca 5 Coronary artery disease with previous stent placement 2 6 Hypertension 7 Hyperlipidemia Plan: Patient continues to improve, stable overnight, breathing comfortably, she will require home oxygen, she qualifies for, room air pulse ox was 88%, no worsening dyspnea, no fever or chills, inflammatory markers are trending down, no acute events overnight, she is stable for discharge home today she can follow-up Dr. Gee in the office in 5-6 weeks I performed a history & physical examination of the patient and discussed their management with my nurse practitioner, Kelli Castillo. I reviewed the nurse practitioner's note and agree with the documented findings and plan of care. Lung sounds are positive for diminished breath sounds. The findings and the impression was discussed with the patient. I attest to the documentation by the nurse practitioner. Time with Patient: Less than 30
--- NOTE | 2020-01-28 21:42 | P.DS ---
Providers Date of admission: 01/22/20 15:11 Expected date of discharge: 01/28/20 Attending physician: Dani Pitt MD Consults: 01/22/20 16:12 Consult Physician Urgent Consulting Provider: Margarette Colón Consult Reason/Comments: COVID 19, hypoxemic respiratory failure Do you want consulting provider notified?: Yes Primary care physician: Adal Dickey MD Hospital Course: Discharge Diagnosis: COVID 19 pneumonia Acute hypoxic respiratory failure Sinus bradycardia. Ovarian cancer on monoclonal antibody Coronary artery disease status post PCI Hypertension Dyslipidemia Anxiety Hypothyroidism Anemia of chronic disease with worsening hemoglobin status post 1 unit of packed red blood cells Chronic pancytopenia Hospital Course: Patient is a 59-year-old female with a history of metastatic ovarian cancer on monoclonal antibody, coronary artery disease, hypertension, and dyslipidemia who presented to the ER with complaints of increasing shortness of breath. She had been diagnosed with CPVOD 19 approximately 7 days before admission. In the ER she underwent an extensive evaluation. She was found to be pancytopenic. Initial laboratory analysis also showed a ferritin of 1790, LDH 1455, and CRP 62.7. Pro-calcitonin was mildly elevated at 0.1. Influenza A and B were negative. Chest x-ray showed elevated right hemidiaphragm with right basilar atelectasis or infiltrate. She was admitted and was started on dexamethasone, pulmonary was consulted and she was started on Remedesivir, she was also started on vitamin C and D, zinc, and famotidine. She was started on Rocephin and Zithromax for possible community-acquired pneumonia. She continued to improve throughout her hospital stay. She was taken off of IV antibiotics when it was determine that her chest x-ray changes were secondary to Covid 19. She completed 5 days of from best [facility]. On 02/05 she was set to be discharged was noted to be slightly bradycardic. Her beta carmela was held and bradycardia resolved. On 01/27 she was determined stable for discharge home. She is requiring 4 L nasal cannula for oxygen but her oxygen saturations have been stable. 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 She will complete an additional 4 days of dexamethasone. She'll continue on vitamin C, vitamin D, zinc, and Pepcid. She will continue baby aspirin for the next 30 days and monitor for signs and symptoms of bleeding. Her platelets have been stable. She will continue off of her oral chemo until seen by her oncologist in approximately one week. She'll follow up with Dr. Dickey on 02/10/20. Patient seen and examined at bedside. No chest pain, Breathing stable, no wheezi ng, feeling better and wants to go home. Vital signs reviewed and stable. General: ill appearing, no distress, appears at stated age Derm: warm, dry Head: atraumatic, normocephalic, symmetric Eyes: EOMI, no lid lag, anicteric sclera Mouth: no lip lesion, mucus membranes moist Cardiovascular: S1S2 reg, no murmur, positive posterior tibial pulse bilateral, Lungs: course bs bilateral , no accessory muscle use Abdominal: soft, nontender to palpation, no guarding, no appreciable organomegaly Ext: no gross muscle atrophy, no edema, no contractures Neuro: CN II-XI grossly intact, no focal neuro deficits Psych: Alert, oriented, appropriate affect A total of 40 minutes of time were spent preparing this complex discharge summary . Patient Condition at Discharge: Stable Plan - Discharge Summary New Discharge Prescriptions: New Aspirin [Adult Low Dose Aspirin EC] 81 mg PO DAILY #30 tablet. dexAMETHasone [Hexadrol] 6 mg PO DAILY #12 tab Zinc Sulfate [Orazinc] 220 mg PO DAILY #30 cap Continue Atorvastatin [Lipitor] 40 mg PO HS ALPRAZolam [Xanax] 1 mg PO HS PRN PRN Reason: Anxiety Nitroglycerin Sl Tabs [Nitrostat] 0.4 mg SUBLINGUAL Q5M PRN #25 tab PRN Reason: Chest Pain Ergocalciferol [Vitamin D2 (DRISDOL)] 50,000 unit PO Q14D Docusate [Colace] 100 mg PO BID PRN PRN Reason: Constipation DULoxetine HCL [Cymbalta] 30 mg PO DAILY Magnesium 250 mg PO Q48H Pyridoxine [Vitamin B-6] 150 mg PO BID Levothyroxine Sodium [Synthroid] 75 mcg PO DAILY Furosemide [Lasix] 40 mg PO Q48H Discontinued atenoloL [Tenormin] 12.5 mg PO BID Rucaparib Camsylate [Rubraca] 400 mg PO BID Discharge Medication List ALPRAZolam [Xanax] 1 mg PO HS PRN 01/13/15 [History] Atorvastatin [Lipitor] 40 mg PO HS 04/01/14 [History] Nitroglycerin Sl Tabs [Nitrostat] 0.4 mg SUBLINGUAL Q5M PRN #25 tab 02/18/16 [Rx] Ergocalciferol [Vitamin D2 (DRISDOL)] 50,000 unit PO Q14D 08/31/16 [History] DULoxetine HCL [Cymbalta] 30 mg PO DAILY 12/07/17 [History] Docusate [Colace] 100 mg PO BID PRN 12/07/17 [History] Magnesium 250 mg PO Q48H 01/06/20 [History] Pyridoxine [Vitamin B-6] 150 mg PO BID 01/06/20 [History] Furosemide [Lasix] 40 mg PO Q48H 01/22/20 [History] Levothyroxine Sodium [Synthroid] 75 mcg PO DAILY 01/22/20 [History] Aspirin [Adult Low Dose Aspirin EC] 81 mg PO DAILY #30 tablet.dr 01/28/20 [Rx] Zinc Sulfate [Orazinc] 220 mg PO DAILY #30 cap 01/28/20 [Rx] dexAMETHasone [Hexadrol] 6 mg PO DAILY #12 tab 01/28/20 [Rx] Follow up Appointment(s)/Referral(s): Adal Dickey MD [Primary Care Provider] - 02/10/20 1:15 pm [facility],Equipment [NON-STAFF] - (Please call once home to arrange delivery of oxygen concentrator to your home today. [facility] will deliver a portable oxygen tank to the bedside before discharge) Activity/Diet/Wound Care/Special Instructions: Activity: as tolerated Diet: regular Special Instructions: Monitor pulse Ox and Temp daily Stay off oral chemo until next appointment with Sadie. Please give copy of COVID D/C instructions Discharge Disposition: HOME SELF-CARE
== END 2020-01-28 13:05 | disposition home or self-care (01) | DRG 177 ==
LOC: EC 12:40 → 2ORMAIN 15:11 → 4SSUR 17:43
PROVIDERS: ADMIT Internal Medicine; ATTEND Internal Medicine
PROC: 30233N1 Transfusion of Nonautologous Red Blood Cells into Peripheral Vein, Percutaneous Approach (ICD-10-PCS; principal; 2020-01-26)
DX: U07.1 COVID-19 (principal); J12.89 Other viral pneumonia; J96.01 Acute respiratory failure with hypoxia; C56.9 Malignant neoplasm of unspecified ovary; D61.818 Other pancytopenia; J98.11 Atelectasis; C79.9 Secondary malignant neoplasm of unspecified site; I25.2 Old myocardial infarction; D63.8 Anemia in other chronic diseases classified elsewhere; E03.9 Hypothyroidism, unspecified; E78.5 Hyperlipidemia, unspecified; G62.0 Drug-induced polyneuropathy; T45.1X5A Adverse effect of antineoplastic and immunosuppressive drugs, initial encounter; F32.9 Major depressive disorder, single episode, unspecified; F41.9 Anxiety disorder, unspecified; I10 Essential (primary) hypertension; I25.10 Atherosclerotic heart disease of native coronary artery without angina pectoris; Z79.890 Hormone replacement therapy; Z79.899 Other long term (current) drug therapy; Z80.0 Family history of malignant neoplasm of digestive organs; Z87.891 Personal history of nicotine dependence; Z90.49 Acquired absence of other specified parts of digestive tract; Z90.710 Acquired absence of both cervix and uterus; Z95.5 Presence of coronary angioplasty implant and graft; Z88.5 Allergy status to narcotic agent; Z88.8 Allergy status to other drugs, medicaments and biological substances; Z91.040 Latex allergy status; D75.89 Other specified diseases of blood and blood-forming organs; Z87.01 Personal history of pneumonia (recurrent); Z92.21 Personal history of antineoplastic chemotherapy; Z80.41 Family history of malignant neoplasm of ovary
CPT/HCPCS: 36415; 71045; 71046; 80048; 80053; 82550; 82728; 83605; 83615; 83735; 83880; 84145; 85025; 85379; 85610; 85730; 86140; 86850; 86900; 86901; 86920; 87040; 87502; 93005; 94640; 94760; 96361; 96365; 96367; 96375; 99291

== ENCOUNTER → 2020-04-14 | Outpatient (CLI) | payer BC ==
--- NOTE | 2020-04-16 08:41 | MM ---
Reason for exam: screening (asymptomatic). Last mammogram was performed 1 year and 5 months ago. History: Patient is postmenopausal and has history of ovarian cancer at age 56. Family history of breast cancer in maternal grandmother and breast cancer in 2 maternal aunts. Took hormonal contraceptives for 10 years beginning at age 15. Physical Findings: A clinical breast exam by your physician is recommended on an annual basis and results should be correlated with mammographic findings. MG 3D Screening Mammo W/Cad Bilateral CC and MLO view(s) were taken. Prior study comparison: October 29, 2018, bilateral MG 3d screening mammo w/cad. September 14, 2017, bilateral MG 3d screening mammo w/cad. There are scattered fibroglandular densities. Finding: There are coarse heterogeneous, grouped/clustered calcifications in the lower outer quadrant, middle position of the right breast. ASSESSMENT: Incomplete: need additional imaging evaluation, BI-RAD 0 RECOMMENDATION: Special view mammogram of the right breast. [facility] will attempt to contact patient to return for supplemental views.
== END | disposition home or self-care (01) ==
LOC: RADMAMWWP 15:35
PROVIDERS: ATTEND Internal Medicine
DX: Z12.31 Encounter for screening mammogram for malignant neoplasm of breast (principal)
CPT/HCPCS: 77063; 77067

== ENCOUNTER → 2020-04-28 | Outpatient (CLI) | payer BC ==
--- NOTE | 2020-04-28 14:51 | MM ---
Reason for exam: additional evaluation requested from abnormal screening. Last mammogram was performed less than 1 month ago. History: Patient is postmenopausal and has history of ovarian cancer at age 56. Family history of breast cancer in maternal grandmother and breast cancer in 2 maternal aunts. Took hormonal contraceptives for 10 years beginning at age 15. Physical Findings: Nurse did not find any significant physical abnormalities on exam. MG 3D Work Up W/Cad RT Spot compression CC, spot compression MLO, and ML view(s) were taken of the right breast. Prior study comparison: April 14, 2020, bilateral MG 3d screening mammo w/cad. October 29, 2018, bilateral MG 3d screening mammo w/cad. The breast tissue is heterogeneously dense. This may lower the sensitivity of mammography. Finding: There are typically benign round, diffuse/scattered and grouped calcifications in the right breast. No suspicious persistent grouped new microcalcifications in the right breast. These results were verbally communicated with the patient and result sheet given to the patient on 04/28/20. ASSESSMENT: Benign, BI-RAD 2 RECOMMENDATION: Return to routine screening mammogram schedule for both breasts.
== END | disposition home or self-care (01) ==
LOC: RADMAMWWP 13:33
PROVIDERS: ATTEND Internal Medicine
DX: R92.8 Other abnormal and inconclusive findings on diagnostic imaging of breast (principal)
CPT/HCPCS: 77061; 77065

== ENCOUNTER → 2020-07-29 | Outpatient (CLI) | payer BC ==
[2020-07-29 14:39] VITALS: BP 153/78; PULSE 77; RESP 16; TEMP 98.2
[2020-07-29 15:04] LABS: Basophils % (A) 0 %; Eosinophils % (A) 1 %; HCT 21.2 % (34.0-46.0); Hyperchromasia Slight; Lymphocytes # (A) 1.1 k/uL (1.0-4.8); Lymphocytes % (A) 35 %; MCHC 37.6 g/dL (31.0-37.0); MCV 85.1 fL (80.0-100.0); Mean Platelet Volume 9.3; Monocytes # (A) 0.3 k/uL (0-1.0); Monocytes % (A) 10 %; Neutrophils # (A) 1.6 k/uL (1.3-7.7); Neutrophils % (A) 50 %; Poikilocytosis Slight; RDW 15.8 % (11.5-15.5); WBC 3.3 k/uL (3.8-10.6)
[2020-07-29 15:19] LABS: Platelet Count 26 k/uL (150-450)
[2020-07-29 15:30] LABS: Anisocytosis (M) Present; Ovalocytes Present
== END ==
LOC: PROCWHC3 14:24
PROVIDERS: ATTEND Obstetrics & Gynecology
DX: C56.1 Malignant neoplasm of right ovary (principal); Z88.5 Allergy status to narcotic agent; Z91.040 Latex allergy status; Z88.2 Allergy status to sulfonamides; Z88.8 Allergy status to other drugs, medicaments and biological substances; Z91.018 Allergy to other foods; Z87.891 Personal history of nicotine dependence
CPT/HCPCS: 85025; 36591; J1642; 80053; 83735; 86304; 86850; 86900; 86901

== ENCOUNTER → 2020-08-03 | Outpatient (CLI) | payer BC ==
[2020-08-03 13:33] LABS: Anisocytosis Slight; Basophils % (A) 0 %; Eosinophils # (A) 0.1 k/uL (0-0.7); Eosinophils % (A) 2 %; HCT 26.7 % (34.0-46.0); HGB 9.3 gm/dL (11.4-16.0); Lymphocytes # (A) 1.3 k/uL (1.0-4.8); Lymphocytes % (A) 35 %; MCH 30.7 pg (25.0-35.0); MCHC 34.7 g/dL (31.0-37.0); MCV 88.4 fL (80.0-100.0); Mean Platelet Volume 8.5; Monocytes # (A) 0.4 k/uL (0-1.0); Monocytes % (A) 11 %; Neutrophils # (A) 1.8 k/uL (1.3-7.7); Neutrophils % (A) 48 %; Poikilocytosis Moderate; RBC 3.02 m/uL (3.80-5.40); RDW 19.3 % (11.5-15.5); WBC 3.8 k/uL (3.8-10.6)
[2020-08-03 13:38] LABS: ALT 31 U/L (4-34); AST 37 U/L (14-36); African American GFR (CKD) >90 (>60 ml/min/1.73 sqM); Albumin 4.4 g/dL (3.5-5.0); Albumin/Globulin Ratio 1.6; Alkaline Phosphatase 67 U/L (38-126); Anion Gap 11 mmol/L; Blood Urea Nitrogen 13 mg/dL (7-17); Calcium 9.5 mg/dL (8.4-10.2); Carbon Dioxide 27 mmol/L (22-30); Chloride 102 mmol/L (98-107); Globulin 2.7 g/dL; Glucose 100 mg/dL (74-99); Magnesium 1.2 mg/dL (1.6-2.3); Non-African American GFR(CKD) 79 (>60 ml/min/1.73 sqM); Potassium 4.7 mmol/L (3.5-5.1); Sodium 140 mmol/L (137-145); Total Bilirubin 0.8 mg/dL (0.2-1.3); Total Protein 7.1 g/dL (6.3-8.2)
[2020-08-03 13:43] LABS: Platelet Count 101 k/uL (150-450)
== END | disposition home or self-care (01) ==
LOC: LABWHC1 11:34
PROVIDERS: ATTEND Nurse Practitioner
DX: C56.9 Malignant neoplasm of unspecified ovary (principal)
CPT/HCPCS: 36415; 80053; 83735; 85025

== ENCOUNTER → 2021-04-15 | Outpatient (CLI) | payer BC ==
--- NOTE | 2021-04-19 08:56 | MM ---
Reason for exam: screening (asymptomatic). Last mammogram was performed 1 year ago. History: Patient is postmenopausal and has history of ovarian cancer at age 56. Family history of breast cancer in maternal grandmother and breast cancer in 2 maternal aunts. Took hormonal contraceptives for 10 years beginning at age 15. Physical Findings: A clinical breast exam by your physician is recommended on an annual basis and results should be correlated with mammographic findings. MG 3D Screening Mammo W/Cad Bilateral CC and MLO view(s) were taken. Prior study comparison: April 28, 2020, right breast MG 3d work up w/cad RT. April 14, 2020, bilateral MG 3d screening mammo w/cad. The breast tissue is heterogeneously dense. This may lower the sensitivity of mammography. Stable asymmetries bilaterallay. Some type of metallic device projects at the right axilla. No significant changes when compared with prior studies. ASSESSMENT: Benign, BI-RAD 2 RECOMMENDATION: Routine screening mammogram of both breasts in 1 year.
== END | disposition home or self-care (01) ==
LOC: RADMAMWWP 10:56
PROVIDERS: ATTEND Internal Medicine
DX: Z12.31 Encounter for screening mammogram for malignant neoplasm of breast (principal); Z78.0 Asymptomatic menopausal state; Z80.3 Family history of malignant neoplasm of breast
CPT/HCPCS: 77063; 77067

== ENCOUNTER → 2022-01-07 | Outpatient (CLI) | payer BC ==
--- NOTE | 2022-01-07 11:58 | BD ---
EXAMINATION TYPE: Axial Bone Density DATE OF EXAM: 01/07/2022 COMPARISON: NONE CLINICAL HISTORY: 61 years year old Female. ICD-10 CODE: M89.9 bone disorder Height: 64 Weight: 240.2 FRAX RISK QUESTIONS: Alcohol (3 or more units per day): NO Family History (Parent hip fracture): NO Glucocorticoids (More than 3mos): NO History of Fracture in Adulthood: NO Secondary Osteoporosis: 1. Type 1 Diabetes: NO 2. Hyperthyroidism: NO 3. Menopause before 45: NO 4. Malnutrition: NO 5. Chronic liver disease: NO Rheumatoid Arthritis: NO Current Tobacco Use: NO RISK FACTORS HISTORY OF: Hip Fracture (Right/Left): NO Spine Fracture: NO History of Wrist Fracture: NO Surgery to Spine/Hip(right/left)/Wrist (right/left): NO Family History of Osteoporosis: NO Active: NO Diet low in dairy products/other sources of calcium: NO Postmenopausal woman: NO Take estrogen and/or progesterone medications: NO Lost more than 2 inches in height since high school: NO Frequent falls: NO Poor Health: NO Hyperparathyroidism: NO Adrenal Insufficiency: NO MEDICATIONS: Prednisone or other steroids: NO Thyroid Medications: LEVOTHYROXIN How Long: SINCE 2006 Osteoporosis Medications: NO Additional Medications: CHEMO MEDS, ATENOLOL, VIT D, MAGNESIUM, LIPITOR, Additional History: OVARIAN CA., 2017 CHEMO CURRENT TREATMENTS EXAM MEASUREMENTS: Bone mineral densitometry was performed using the Guidesly System. Bone mineral density as measured about the Lumbar spine is: ----- L1-L4(G/cm2): 1.349 T Score Values are as follows: ----- L1: -0.1 ----- L2: 0.5 ----- L3: 2.4 ----- L4: 2.4 ----- L1-L4: 1.4 Bone mineral density has: DECREASED 0.4 % since study of: 07/26/2016 Bone mineral density about the R hip (g/cm2): 0.958 Bone mineral density about the L hip (g/cm2): 0.939 T Score values are as follows: -----R Neck: -0.6 -----L Neck: -0.7 -----R Total: 0.4 -----L Total: 0.9 Bone mineral density has: DECREASED 11.5 % since study of: 07/26/2016 FRAX%s: The graph provided illustrates a 6.4% chance for a major osteoporotic fx and a 0.3% chance fo r the hips probability for fx in 10 years time. IMPRESSION: Normal (Values between +1 and -1 indicate normal bone mass). Consider repeating this study in 5 year s or sooner if there is some new clinical indication. NOTE: T-SCORE=SD OF THE YOUNG ADULT MEAN.
== END | disposition home or self-care (01) ==
LOC: RADBDWWP 10:05
PROVIDERS: ATTEND Internal Medicine
DX: M89.9 Disorder of bone, unspecified (principal)
CPT/HCPCS: 77080

== ENCOUNTER → 2022-04-18 | Outpatient (CLI) | payer BC ==
--- NOTE | 2022-04-19 08:26 | MM ---
Reason for Exam: Screening (asymptomatic). Last screening mammogram was performed 12 month(s) ago. Patient History: Menarche at age 10. First Full-Term at age 25. Left ovary removed at age 56. Right ovary removed at age 56. Hysterectomy at age 56. Postmenopausal. Ovarian cancer, age 56. Previous chemotherapy at age 56. Hormonal Contraceptives for 10 years from age 15 until age 25. Maternal grandmother had breast cancer. Maternal aunt had breast cancer. Maternal aunt had breast cancer. Risk Values: Isabel 5 year model risk: 1.9%. NCI Lifetime model risk: 8.4%. Prior Study Comparison: 04/14/2020 Bilateral Screening Mammogram, [facility]. 04/28/2020 Right Diagnostic Mammogram, [facility]. 04/15/2021 Bilateral Screening Mammogram, [facility]. Tissue Density: The breast tissue is heterogeneously dense. This may lower the sensitivity of mammography. Findings: Analyzed By CAD. There is no suspicious group of microcalcifications or new suspicious mass in either breast. Stable asymmetries bilaterally. Benign round appearing calcifications within both breasts. Overall Assessment: Benign, BI-RAD 2 Management: Screening Mammogram of both breasts in 1 year. A clinical breast exam by your physician is recommended on an annual basis and results should be correlated with mammographic findings. Electronically signed and approved by: Carlos Adams D.O.
== END | disposition home or self-care (01) ==
LOC: RADMAMWWP 13:00
PROVIDERS: ATTEND Family Medicine
DX: Z12.31 Encounter for screening mammogram for malignant neoplasm of breast (principal); Z80.3 Family history of malignant neoplasm of breast; Z78.0 Asymptomatic menopausal state
CPT/HCPCS: 77063; 77067

== ENCOUNTER 2022-10-24 10:08 | Day surgery (SDC) | payer BC ==
[2022-10-17 11:30] VITALS: BMI 39.8
[~2022-10-24 10:08] MED LIST changes: +ALPRAZolam 0.25 MG TAB PO PRN; +ALPRAZolam 0.5 MG TAB PO PRN; +ASPIRIN 325 MG TAB PO ONE; +ATORVASTATIN 80 MG TAB PO ONE; +HEPARIN SODIUM,PORCINE (1 ML) 2,500 UNIT in SODIUM CHLORIDE 0.9% 250 ML IRRIGATION PRN; +HEPARIN SODIUM,PORCINE 10,000 UNIT in SODIUM CHLORIDE 0.9% 1,000 ML IRRIGATION PRN; -HEPARIN SODIUM,PORCINE 100 UNIT/ML 5 ML VIAL IV ONE; -LACTATED RINGERS 1,000 ML IV SCH; -LIDOCAINE 1% (10MG/ML) FOR IV START INTRADERMA PRN; -MIDAZOLAM 2 MG/2 ML VIAL ONE; +NITROGLYCERIN SL TABS 0.4 MG TAB SUBLINGUAL PRN; -PROPOFOL 10 MG/ML 20 ML VIAL IV ONE; +SODIUM CHLORIDE 0.9% 1,000 ML in EMPTY BAG 1 BAG IV SCH
[2022-10-24] MEDS ORDERED: SODIUM CHLORIDE 0.9% 1,000 ML IV ONE (10:32)
[2022-10-24 11:02] VITALS: TEMP 97.8
[2022-10-24 11:10] LABS: Anisocytosis Slight; Basophils % (A) 1 %; Eosinophils # (A) 0.2 k/uL (0-0.7); Eosinophils % (A) 4 %; HCT 31.7 % (34.0-46.0); HGB 11.1 gm/dL (11.4-16.0); Lymphocytes # (A) 0.9 k/uL (1.0-4.8); Lymphocytes % (A) 17 %; MCV 94.2 fL (80.0-100.0); Monocytes # (A) 0.3 k/uL (0-1.0); Monocytes % (A) 6 %; Neutrophils # (A) 3.8 k/uL (1.3-7.7); Neutrophils % (A) 71 %; Platelet Count 103 k/uL (150-450); Poikilocytosis Slight; RBC 3.36 m/uL (3.80-5.40); RDW 17.4 % (11.5-15.5); WBC 5.4 k/uL (3.8-10.6)
[2022-10-24] MEDS: MIDAZOLAM 2 MG/2 ML VIAL IVP ONE ×2 (12:31→12:48)
[2022-10-24] MEDS ORDERED: LIDOCAINE 1% INJ 10MG/ML (20 ML MDV) SQ ONE (12:33)
[2022-10-24] MEDS ORDERED: VERAPAMIL SYRINGE (5 MG/10 ML) INTRAARTER ONE (12:34)
[2022-10-24] MEDS ORDERED: HEPARIN SODIUM 1,000 UN/ML (10ML VL) ONE (12:35)
[2022-10-24] MEDS: HEPARIN SODIUM 1,000 UN/ML (10ML VL) IV ONE ×2 (12:36→12:48)
[2022-10-24] MEDS ORDERED: IOPAMIDOL-370 100ML BTL INJ ONE (12:55)
[2022-10-24] MEDS ORDERED: RX INFO: IV CONTRAST WAS GIVEN 1 EACH MISC MISCELLANE PRN (12:59)
[2022-10-24] MEDS ORDERED: SODIUM CHLORIDE 0.9% 1,000 ML IV SCH (13:00)
--- NOTE | 2022-10-24 13:04 | P.PCN ---
Date of Procedure: 10/24/22 Operative Findings: CARDIAC CATHETERIZATION PERFORMING PHYSICIAN: Giacomo Santos MD, RPVI PROCEDURE PERFORMED: 1. Selective right and left coronary angiogram 2. Left heart catheterization 3. iFR of the left circumflex coronary artery 4. Ultrasound-guided access of the right radial artery INDICATION: Chest discomfort and this 62-year-old female patient with known CAD and prior stenting of the RCA and LAD who underwent myocardial perfusion imaging stenosis and that showed an inferior ischemia COMPLICATION: None APPROACH: Right radial artery LEVEL OF SEDATION: Moderate with a sedation length of 24 minutes PROCEDURE DESCRIPTION: After obtaining an informed consent, the patient was brought to cardiac greenhouse laborer. Local anesthesia was performed using lidocaine subcutaneously. The right radial artery was cannulated using Seldinger technique, the guidewire passed easily, following that we advanced a 5-[place] sheath dilator assembly, the wire and dilator were removed and sheath was flushed. Following that, 2 mg of verapamil along with 5000 unit heparin were given. Selective right and left coronary angiogram using a 6-[place] JR4 and JL 3.5 catheters. Following that we did left heart catheterization using 6-[place] pigtail cat heter. The procedure was completed there was no complication. SELECTIVE CORONARY ANGIOGRAM: The right coronary artery: Large caliber vessel and a dominant vessel. The RCA stented in the proximal portion and the stent appeared to be patent. The mid and distal RCA appeared to have mild disease only. Left main: Is angiographically normal. Bifurcates into an ulcer he excellent LAD The left circumflex: The ostial LCx has a lesion appeared to be in the range of 60%. We did iFR and that came in to be nonischemic at 0.94 The left anterior descending artery: The proximal LAD is a stented and the stent is patent. The mid and distal LAD appear to have mild disease only. HEMODYNAMICS: The LVEDP was 19 mmHg with no significant gradient across aortic valve iFR IOF THE LCX: Anticoagulation was initiated using heparin with continuous ACT monitoring. After zeroing the Doppler wire and equalizing between the Doppler wire and guiding catheter and that was JL 3.5 guiding catheter and after the left main was engaged the left circumflex was wired. We did iFR and that came in to be nonischemic 0.94. The procedure was completed was no complication CONCLUSION: 1. Patent stents in the proximal RCA and proximal LAD 2. Intermediate disease involving the proximal LCx. iFR was performed and came in to be nonischemic POSTPROCEDURE MANAGEMENT: Medical treatment
[2022-10-24 13:56] VITALS: RESP 16
[2022-10-24 17:25] VITALS: BP 109/68; PULSE 67
== END 2022-10-24 17:20 | disposition home or self-care (01) ==
LOC: CATHCVL 10:08
PROVIDERS: ATTEND Internal Medicine Interventional Cardiology
DX: I25.10 Atherosclerotic heart disease of native coronary artery without angina pectoris (principal); I10 Essential (primary) hypertension; E78.5 Hyperlipidemia, unspecified; I77.819 Aortic ectasia, unspecified site; Z95.5 Presence of coronary angioplasty implant and graft; Z79.899 Other long term (current) drug therapy
CPT/HCPCS: 93458; 93799; 76937; 85025; C1887; C1769 ×2; C1894; J2250; J2001; J1644; Q9967

== ENCOUNTER → 2023-04-19 | Outpatient (CLI) | payer BC ==
--- NOTE | 2023-04-20 10:01 | MM ---
Reason for Exam: Screening (asymptomatic). Last screening mammogram was performed 12 month(s) ago. Patient History: Menarche at age 10. First Full-Term at age 25. Left ovary removed at age 56. Right ovary removed at age 56. Hysterectomy at age 56. Postmenopausal. Ovarian cancer, age 56. Previous chemotherapy at age 56. Hormonal Contraceptives for 10 years from age 15 until age 25. Maternal grandmother had breast cancer. Maternal aunt had breast cancer. Maternal aunt had breast cancer. Risk Values: Isabel 5 year model risk: 1.9%. NCI Lifetime model risk: 8.1%. Prior Study Comparison: 04/28/2020 Right Diagnostic Mammogram, [facility]. 04/15/2021 Bilateral Screening Mammogram, [facility]. 04/18/2022 Bilateral MG 3D screening mammo w/cad, [facility]. Tissue Density: The breast tissue is heterogeneously dense. This may lower the sensitivity of mammography. Findings: Analyzed By CAD. Asymmetry left breast 10 cm from the nipple measuring 12 mm on CC view. Probably in the upper aspect on MLO view. There is no suspicious group of microcalcifications or new suspicious mass. Overall Assessment: Incomplete: need additional imaging evaluation, BI-RAD 0 Management: Diagnostic Mammogram of the left breast. [facility] will attempt to contact patient to return for supplemental views and ultrasound if indicated. Patient should continue monthly self-breast exams. A clinical breast exam by your physician is recommended on an annual basis. This exam should not preclude additional follow-up of suspicious palpable abnormalities. Note on Isabel scores and lifetime risk: 1. A Isabel score greater than 3% is considered moderate risk. If this is the case, consider specialist referral to assess eligibility for a risk reducing agent. 2. If overall lifetime risk for the development of breast cancer is 20% or higher, the patient may qualify for future screening with alternating mammogram and breast MRI. Electronically signed and approved by: Floyd Frost DO
== END | disposition home or self-care (01) ==
LOC: RADMAMWWP 11:02
PROVIDERS: ATTEND Family Medicine
DX: Z12.31 Encounter for screening mammogram for malignant neoplasm of breast (principal); Z80.3 Family history of malignant neoplasm of breast; Z78.0 Asymptomatic menopausal state
CPT/HCPCS: 77067

== ENCOUNTER → 2023-04-25 | Outpatient (CLI) | payer BC ==
--- NOTE | 2023-04-25 11:12 | USB ---
Reason for Exam: Additional evaluation requested from abnormal screening. Patient History: Menarche at age 10. First Full-Term at age 25. Left ovary removed at age 56. Right ovary removed at age 56. Hysterectomy at age 56. Postmenopausal. Ovarian cancer, age 56. Previous chemotherapy at age 56. Hormonal Contraceptives for 10 years from age 15 until age 25. Maternal grandmother had breast cancer. Maternal aunt had breast cancer. Maternal aunt had breast cancer. Mother had ovarian cancer, age 56. Risk Values: Isabel 5 year model risk: 1.9%. NCI Lifetime model risk: 8.1%. Technique: Method: Targeted. Prior Study Comparison: 04/15/2021 Bilateral Screening Mammogram, [facility]. 04/18/2022 Bilateral MG 3D screening mammo w/cad, [facility]. 04/19/2023 Bilateral MG screening mammo w CAD, [facility]. Findings: The upper outer quadrant of the left breast, the axilla of the left breast and the retroareolar of the left breast were scanned. No solid or cystic masses are identified.. Overall Assessment: Probably benign, BI-RAD 3 Management: Diagnostic Mammogram of the left breast in 6 months. A clinical breast exam by your physician is recommended on an annual basis and results should be correlated with mammographic findings. This exam should not preclude additional follow-up of suspicious palpable abnormalities. Results were given to the patient verbally at the time of exam. Electronically signed and approved by: Joshua Frances M.D. Radiologis
--- NOTE | 2023-04-25 11:13 | MM ---
Reason for Exam: Additional evaluation requested from abnormal screening. Last screening mammogram was performed less than 1 month ago. Patient History: Menarche at age 10. First Full-Term at age 25. Left ovary removed at age 56. Right ovary removed at age 56. Hysterectomy at age 56. Postmenopausal. Ovarian cancer, age 56. Previous chemotherapy at age 56. Hormonal Contraceptives for 10 years from age 15 until age 25. Maternal grandmother had breast cancer. Maternal aunt had breast cancer. Maternal aunt had breast cancer. Mother had ovarian cancer, age 56. Risk Values: Isabel 5 year model risk: 1.9%. NCI Lifetime model risk: 8.1%. Prior Study Comparison: 04/15/2021 Bilateral Screening Mammogram, [facility]. 04/18/2022 Bilateral MG 3D screening mammo w/cad, [facility]. 04/19/2023 Bilateral MG screening mammo w CAD, [facility]. Tissue Density: Left: The breast tissue is heterogeneously dense. This may lower the sensitivity of mammography. Findings: Analyzed By CAD. Persistent nodular density upper outer left breast 10 cm from nipple measuring approximately 13 mm. Ultrasound is recommended. Overall Assessment: Incomplete: need additional imaging evaluation, BI-RAD 0 Management: Diagnostic Breast Ultrasound of the left breast. . Results were given to the patient verbally at the time of exam. Patient should continue monthly self-breast exams. A clinical breast exam by your physician is recommended on an annual basis. This exam should not preclude additional follow-up of suspicious palpable abnormalities. Note on Isabel scores and lifetime risk: 1. A Isabel score greater than 3% is considered moderate risk. If this is the case, consider specialist referral to assess eligibility for a risk reducing agent. 2. If overall lifetime risk for the development of breast cancer is 20% or higher, the patient may qualify for future screening with alternating mammogram and breast MRI. Electronically signed and approved by: Joshua Frances M.D. Radiologis
== END | disposition home or self-care (01) ==
LOC: RADMAMWWP 10:13
PROVIDERS: ATTEND Family Medicine
DX: R92.332 Mammographic heterogeneous density, left breast (principal); Z78.0 Asymptomatic menopausal state; Z80.3 Family history of malignant neoplasm of breast
CPT/HCPCS: 77061; 77065

== ENCOUNTER → 2024-02-06 | Outpatient (CLI) | payer BC ==
--- NOTE | 2024-02-06 14:07 | MM ---
Reason for Exam: Follow-up at short interval from prior study. Last screening mammogram was performed 10 month(s) ago. Patient History: Menarche at age 10. First Full-Term at age 25. Left ovary removed at age 56. Right ovary removed at age 56. Hysterectomy at age 56. Postmenopausal. Ovarian cancer, age 56. Previous chemotherapy at age 56. Hormonal Contraceptives for 10 years from age 15 until age 25. Maternal grandmother had breast cancer. Maternal aunt had breast cancer. Maternal aunt had breast cancer. Mother had ovarian cancer, age 56. Risk Values: Isabel 5 year model risk: 2.0%. NCI Lifetime model risk: 7.9%. Prior Study Comparison: 04/18/2022 Bilateral MG 3D screening mammo w/cad, [facility]. 04/19/2023 Bilateral MG screening mammo w CAD, [facility]. 04/25/2023 Left MG 3D work up w/cad , [facility]. Tissue Density: Left: The breasts are heterogeneously dense, which may obscure small masses. Findings: Analyzed By CAD. Asymmetric density upper outer left breast appears less conspicuous. No distinct mass or distortion. No suspicious microcalcifications. Overall Assessment: Benign, BI-RAD 2 Management: Screening Mammogram of both breasts in 2 months. . Results were given to the patient verbally at the time of exam. Patient should continue monthly self-breast exams. A clinical breast exam by your physician is recommended on an annual basis. This exam should not preclude additional follow-up of suspicious palpable abnormalities. Note on Isabel scores and lifetime risk: 1. A Isabel score greater than 3% is considered moderate risk. If this is the case, consider specialist referral to assess eligibility for a risk reducing agent. 2. If overall lifetime risk for the development of breast cancer is 20% or higher, the patient may qualify for future screening with alternating mammogram and breast MRI. [facility], , 02/06/2024 2:04 PM. Electronically signed and approved by: Joshua Frances M.D. Radiologis
--- NOTE | 2024-02-07 08:48 | BD ---
EXAMINATION TYPE: Axial Bone Density DATE OF EXAM: 02/06/2024 CLINICAL HISTORY: 63 years old Female. ICD-10 CODE: R92.8 OTH ABN AND INCONCLUSIVE FINDINGS M85.88 O TH , Additional History: Height: 5 ft 4 in Weight: 225 FRAX RISK QUESTIONS: Alcohol (3 or more units per day): no Family History (Parent hip fracture): no Glucocorticoids (More than 3mos): no (Ex: prednisone, prednisolone, methylprednisolone, dexamethasone, and hydrocortisone). History of Fracture in Adulthood: no Secondary Osteoporosis: 1. Type 1 Diabetes: no 2. Hyperthyroidism: no 3. Menopause before 45: no 4. Malnutrition: no 5. Chronic liver disease: no Rheumatoid Arthritis: no Current Tobacco Use: no RISK FACTORS HISTORY OF: Surgery to Spine/Hip(right/left)/Wrist (right/left): no MEDICATIONS: Thyroid Medications: yes Which medication: levothyroxine How Lon years Osteoporosis Medications: none EXAM MEASUREMENTS: Bone mineral densitometry was performed using the Axial System. Bone mineral density as measured about the Lumbar spine is: ----- L1-L4(G/cm2): 1.336 T Score Values are as follows: ----- L1: 0.2 ----- L2: 0.9 ----- L3: 2.0 ----- L4: 1.7 ----- L1-L4: 1.3 Z Score Values are as follows: ----- L1: 0.6 ----- L2: 1.3 ----- L3: 2.4 ----- L4: 2.1 ----- L1-L4: 1.7 Bone mineral density has: decreased -1.0 % since study of: 2021 Bone mineral density about the R hip (g/cm2): 1.032 Bone mineral density about the L hip (g/cm2): 1.057 T Score values are as follows: -----R Neck: 0.0 -----L Neck: 0.1 -----R Total: 0.5 -----L Total: 1.0 Z Score values are as follows: -----R Neck: 0.6 -----L Neck: 0.8 -----R Total: 0.9 -----L Total: 1.3 Bone mineral density has: increased 0.8 % since study of: 2021 FRAX%s: The graph provided illustrates a 6.0 % chance for a major osteoporotic fx and a 0.2 % chance for the hips probability for fx in 10 years time. IMPRESSION: Normal (Values between +1 and -1 indicate normal bone mass). Consider repeating this study in 5 year s or sooner if there is some new clinical indication. NOTE: T-SCORE=SD OF THE YOUNG ADULT MEAN. [facility], , 02/07/2024 8:46 AM
== END | disposition home or self-care (01) ==
LOC: RADMAMWWP 13:12
PROVIDERS: ATTEND Internal Medicine
DX: R92.8 Other abnormal and inconclusive findings on diagnostic imaging of breast (principal); R92.333 Mammographic heterogeneous density, bilateral breasts; M85.88 Other specified disorders of bone density and structure, other site; C56.9 Malignant neoplasm of unspecified ovary; Z78.0 Asymptomatic menopausal state; Z80.3 Family history of malignant neoplasm of breast; Z80.41 Family history of malignant neoplasm of ovary; Z90.722 Acquired absence of ovaries, bilateral
CPT/HCPCS: 77061; 77065; 77080

== ENCOUNTER → 2024-06-27 | Outpatient (CLI) | payer BC ==
--- NOTE | 2024-06-27 17:41 | MM ---
Reason for Exam: Screening (asymptomatic). Last mammogram was performed 1 year(s) and 3 month(s) ago. Patient History: Menarche at age 10. First Full-Term at age 25. Left ovary removed at age 56. Right ovary removed at age 56. Hysterectomy at age 56. Postmenopausal. Ovarian cancer, age 56. Previous chemotherapy at age 56. Hormonal Contraceptives for 10 years from age 15 until age 25. Maternal grandmother had breast cancer. Maternal aunt had breast cancer. Maternal aunt had breast cancer. Mother had ovarian cancer, age 56. Risk Values: Isabel 5 year model risk: 2.0%. NCI Lifetime model risk: 7.6%. Prior Study Comparison: 04/19/2023 Bilateral MG screening mammo w CAD, [facility]. 04/25/2023 Left MG 3D work up w/cad LT, [facility]. 02/06/2024 Left MG 3D diag mammo w/cad LT, [facility]. Tissue Density: There are scattered areas of fibroglandular density. Findings: Analyzed By CAD. Global asymmetry right upper outer quadrant remains unchanged. Focal asymmetry upper-outer quadrant left breast also unchanged. Other areas of asymmetric density such as medial left CC view are also unchanged. There is no suspicious group of microcalcifications or new suspicious mass in either breast. Overall Assessment: Benign, BI-RAD 2 Management: Screening Mammogram of both breasts in 1 year. Patient should continue monthly self-breast exams. A clinical breast exam by your physician is recommended on an annual basis. This exam should not preclude additional follow-up of suspicious palpable abnormalities. Note on Isabel scores and lifetime risk: 1. A Isabel score greater than 3% is considered moderate risk. If this is the case, consider specialist referral to assess eligibility for a risk reducing agent. 2. If overall lifetime risk for the development of breast cancer is 20% or higher, the patient may qualify for future screening with alternating mammogram and breast MRI. [facility], , 06/27/2024 5:38 PM. Electronically signed and approved by: Zuleyma Grover M.D. Radiologist
== END | disposition home or self-care (01) ==
LOC: RADMAMWWP 15:08
PROVIDERS: ATTEND Internal Medicine
DX: Z12.31 Encounter for screening mammogram for malignant neoplasm of breast (principal); R92.323 Mammographic fibroglandular density, bilateral breasts; Z78.0 Asymptomatic menopausal state; Z80.3 Family history of malignant neoplasm of breast; Z92.0 Personal history of contraception
CPT/HCPCS: 77063; 77067